=== PATIENT | female | born 1960 | race Caucasian/White ===

== ENCOUNTER 2023-04-12 08:28 | Outpatient (REF) | payer OTHER, SELFPAY ==
[2023-04-12 11:34] LABS: MANUAL DIFF FLAG NO
[2023-04-12 11:40] LABS: Basophils Percent Auto 0.3 % (0-2); Eosinophils Absolute Auto 0.1 X10*3/uL (0.0-0.4); Eosinophils Percent Auto 2.2 % (0-4); Hematocrit 36.3 % (37.0-47.0); Hemoglobin 11.4 g/dl (12.0-16.0); Imm Gran Abs Auto 0.02 X10*3/uL (0.00-0.03); Imm Gran Pct Auto 0.3 % (0.0-0.4); Lymphocytes Absolute Auto 1.2 X10*3/uL (1.2-4.9); Lymphocytes Percent Auto 18.2 % (20-40); Mean Corpuscular HGB Conc 31.4 g/dl (31.0-35.0); Mean Corpuscular Hemoglobin 26.6 pg (27.0-33.0); Mean Corpuscular Volume 84.6 fL (80.0-98.0); Mean Platelet Volume 11.8 fL (9.4-12.3); Monocytes Absolute Auto 0.3 X10*3/uL (0.1-1.2); Monocytes Percent Auto 5.1 % (2-11); Neutrophils Absolute Auto 4.8 x10*3/uL (2.0-8.3); Neutrophils Percent Auto 73.9 % (45-73); Platelet Count 284 X10*3/uL (160-400); Red Blood Count 4.29 X10*6/uL (4.20-5.50); Red Cell Distribution Width 14.5 % (11.0-16.0); White Blood Count 6.4 X10*3/uL (4.8-10.8)
[2023-04-12 12:10] LABS: Estimated Average Glucose 180 mg/dL; Hemoglobin A1c % 7.9 %
[2023-04-12 12:13] LABS: Alanine Aminotransferase 27 U/L (0-31); Albumin Level 4.4 g/dL (3.5-5.0); Alkaline Phosphatase 96 U/L (39-117); Anion Gap 12 (12-20); Aspartate Amino Transferase 20 U/L (5-31); Bilirubin Total 0.6 mg/dL (0.0-1.0); Blood Urea Nitrogen 28 mg/dL (9-16); Calcium 9.7 mg/dL (8.4-10.2); Carbon Dioxide 26 mmol/L (22-29); Chloride 103 mmol/L (96-108); Cholesterol 144 mg/dL; Estimated Glomerular Filt Rate 45; Glucose Fasting 170 mg/dL (60-99); HDL Cholesterol 33 mg/dL; LDL Cholesterol Calculated 78 mg/dl; Sodium 136 mmol/L (135-145); Total Protein 7.5 g/dL (6.5-8.0); Triglycerides 167 mg/dL
[2023-04-12 12:15] LABS: Microalbum/Creatinine Ratio Ur 5.2 ug/mg cr
[2023-04-12 12:32] LABS: TSH reflex Free T4 3.59 uIU/mL (0.32-4.0)
== END 2023-04-12 08:29 | disposition home or self-care (01) ==
LOC: HO.HMGCLDS 08:28
PROVIDERS: PCP Internal Medicine; Visit Provider Internal Medicine
DX: E11.9 Type 2 diabetes mellitus without complications (principal); E78.5 Hyperlipidemia, unspecified; I10 Essential (primary) hypertension; G47.30 Sleep apnea, unspecified
CPT/HCPCS: 36415; 80053; 80061; 82043; 83036; 84443; 85025

== ENCOUNTER 2023-07-02 09:38 | Outpatient (AMB) | payer OTHER, SELFPAY ==
--- NOTE | 2023-07-02 09:44 | MHC.AMNUTRGE ---
Intake VS Expanded 07/02/23 09:45 07/11/23 20:39 Height 5 ft 2 in 5 ft 2 in Weight 251 lb 8.759 oz 252 lb BMI 46.0 46.1 Intake Visit Reasons: DM2 Allergies albuteral Adverse Reaction (Uncoded 04/12/23 07:49) low oxygen gluten Adverse Reaction (Uncoded 04/12/23 07:49) upset stomach latex Adverse Reaction (Uncoded 04/12/23 07:49) rash HPI Nutrition Presentation Details Pt presents for MNT for T2DM . Pt was referred by PCP , Dr. Guzman Pt reports having celiac disease , T2DM for over 5 years Pt reports she monitors BG inthe fasting state and BG range from 150-160s Typical meal : D: egg, crackers water L: leftover: Rice/li/ meat : water or cheese or pepperoni or sausage D: 8 pm meatballs, gluten free buns and marinara sauce, water food frequency fruits/d: 0-1/d vegetables: 3 times/wk milk: 0-1/d snacks: chips,fruits, cookies starches > 2o servings/d protein foods: poultry/beef/processed meats fried foods :3 x/wk physical activity: daily life activities ETOH: denies smokingDenies HMJ-Ykdmnuo-Vu.Jeor Equation Height 5 ft 2 in Weight 252 lb Resting Metabolic Rate 1665.04 Calculated Activity Level Sedentary Calories Needed to Maintain Weight 1997.05 Diagnosis Nutrition problem #1 excessive energy intake As related to (etiology) #1 diagnosis As evidenced by (sign/symptom) #1 food recall and elevated HgbA1c (7.9% on 04/2023) Monitoring/Goals Nutrition problem monitoring HgbA1c, total CHO intake and weight Nutrition goal/outcome HgbA1c <7% in 3 months, list 3 CHO foods and wt loss 5lbs in 2 months Outcome progress verbalized understanding Learning/Education Readiness to learn good Stages of change contemplation Educational materials provided Yes (meal planning) Most Recent Diabetes Results: Microalb/Creat Ratio 5.2 ug/mg cr 04/12/23 Cholesterol 144 mg/dL 04/12/23 HDL Cholesterol 33 mg/dL 04/12/23 Triglycerides 167 mg/dL 04/12/23 Creatinine 1.21 mg/dL (0.5-1.4) 04/12/23 Blood Urea Nitrogen 28 mg/dL (9-16) H 04/12/23 Sodium 136 mmol/L (135-145) 04/12/23 Potassium 5.0 mmol/L (3.3-5.1) 04/12/23 Chloride 103 mmol/L (96-108) 04/12/23 Carbon Dioxide 26 mmol/L (22-29) 04/12/23 Calcium 9.7 mg/dL (8.4-10.2) 04/12/23 AST 20 U/L (5-31) 04/12/23 ALT 27 U/L (0-31) 04/12/23 Total Protein 7.5 g/dL (6.5-8.0) 04/12/23 Albumin 4.4 g/dL (3.5-5.0) 04/12/23 PFSH Family History Father CAD (coronary artery disease), Onset Age: 70 Mother COPD (chronic obstructive pulmonary disease) Social History Household Members Other:: , 3 children, on disability Housing: House Patient Tobacco Use Status: Never used Tobacco e-Cigarette/Vaping Use: Never Used service: No Current occupational status: unemployed Cognitive needs: No Hearing needs: No Vision needs: Yes Assessment & Plan Assessment & Plan (1) DM type 2 (diabetes mellitus, type 2): Code(s): E11.9 - Type 2 diabetes mellitus without complications Qualifiers: Diabetes mellitus [employer] insulin use: without [employer] use Plan: wt: 114 (06/2023) Est kcal needs as per MSJ: 2000 (40% carb, 30% protein/fat) Est fluid needs as per 25-30 ml/d: 2900 Est prot per day as per 1 g/kg bw: 114 Recommend fiber intake : 8-10 g per day and gradually increase to 25-28 g per day for women and 35-38 g for men or as tolerated Recommend sodium intake per day : less than 2000 mg Educated patient on: ( R = reviewed V = verbalizes understanding N/R = needs review N/A = not applicable Food sources of carbohydrate, adequate serving sizes and its role in various health conditions, Carbs per serving also on gluten free foods: R Differences between complex carbohydrates a simple carbohydrates, role of fiber in diet: R Differences between types of fats and role in diet (mono on saturated fat fatty acids, saturated fatty acids, trans fats): R Food sources of sodium in salt and healthy modifications for heart health in kidney health: NR Vitamins and minerals: R Healthy plate method concept: R Physical activity: Benefits a precaution: R Hypoglycemia protocol (rule of 15): NR Dietary prevention of Hyperglycemia: R Patient Instructions: Work on having 3 meals a day following healthy plate method, reducing carbohydrate at meals to 45-60 g Reduce on snacking behavior see 2000 walter meal plan Coding Level of Care Code Nutr Indiv Intake (77959) Diagnoses DM type 2 (diabetes mellitus, type 2) E11.9 Diabetes mellitus [employer] insulin use: without [employer] use Time Spent (min) 40
[2023-07-02 09:45] VITALS: BMI 46.0
[2023-07-11 20:39] VITALS: BMI 46.1
== END 2023-07-02 10:44 | disposition home or self-care (01) ==
PROVIDERS: PCP Internal Medicine; Visit Provider Dietitian, Registered
DX: E11.9 Type 2 diabetes mellitus without complications (principal)

== ENCOUNTER → 2023-07-02 09:38 | Outpatient (BNVA) | payer OTHER, SELFPAY | PROVIDERS: PCP Internal Medicine; Visit Provider Dietitian, Registered | DX: E11.9 Type 2 diabetes mellitus without complications (principal); Z71.3 Dietary counseling and surveillance | CPT/HCPCS: 97802 ==

== ENCOUNTER 2023-07-03 12:49 | Outpatient (AMB) | payer OTHER, SELFPAY ==
--- NOTE | 2023-07-03 13:02 | A.OFFVIS_ITS ---
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 Allergies albuteral Adverse Reaction (Uncoded 04/12/23 07:49) low oxygen gluten Adverse Reaction (Uncoded 04/12/23 07:49) upset stomach latex Adverse Reaction (Uncoded 04/12/23 07:49) rash HPI HPI Comments History of Present Illness Details 63 y/o female patient with hx of sleep apnea presents for new in-person visit to manage sleep apnea. Pt reports snoring, and difficulty sleeping. She was diagnosed with JONAH and tried CPAP many years ago. She tired CPAP only short term period, she did not tolerate the pressure and felt chocking. Pt reports difficulty falling asleep, lack of sleep and daytime tiredness and sleepy. She can fall asleep in her couch early in the evening, and having difficulty falling asleep at night. Sleep questionnaire: Have you ever been diagnosed with a sleep disorder? Yes, sleep apnea. Have you ever had a sleep study in the past? Yes. Have you ever been treated for a sleep disorder? Yes, CPAP but very short period time. Do you take medications for a sleep disorder? No. Do you snore? Yes. Do you wake up gasping at night? No. Do you have episodes of apneas? No. If yes, are they witnessed? No. Do you have episodes of nocturnal chest pain or dyspnea? No. Do you have difficulty initiating sleep? Yes. Do you have difficulty maintaining sleep? No. Do you wake up tired? Yes, sometimes. Do you have headaches upon awakening? Yes, sometimes. Do you wake up with dry mouth or throat? No. Do you have GERD? No. Do you have nocturia? Yes. Do you have nocturnal leg cramps? Yes. Do you have symptoms of restless legs? Yes. Do you act out your dreams? No. Sleep hygiene questionnaire: What is your usual sleep routine? Usual bedtime is at 2 am; Usual wake up time is at 7:30 -8am. Do you take naps? Yes, very short nap. Is your sleep environment cool, dark, and quiet? Yes. Do you exercise? No. Do you take caffeine or other stimulants? No. Do you use electronics in bed? Yes. What is your work schedule? N/A. Hypersomnolence questionnaire: Do you have daytime tiredness or fatigue? Yes. Do you easily fall asleep when inactive? Yes. Have you ever had episodes of sudden weakness? No. Have you ever had episodes of sudden weakness associated with strong emotions? No. PFSH Family History Father CAD (coronary artery disease), Onset Age: 70 Mother COPD (chronic obstructive pulmonary disease) Social History Household Members Other:: , 3 children, on disability Housing: House Patient Tobacco Use Status: Never used Tobacco e-Cigarette/Vaping Use: Never Used service: No Current occupational status: unemployed Cognitive needs: No Hearing needs: No Vision needs: Yes Review of Systems Const All systems reviewed & are unremarkable except as noted in HPI and below ENT Reports Normal hearing present Neuro Reports Normal hearing present Physical Exam Vital Signs: Last Vital Signs Pulse 66 07/03/23 13:04 BP 132/80 07/03/23 13:04 Pulse Ox 98 07/03/23 13:04 Oxygen Delivery Method Room Air 07/03/23 13:04 BMI result Body Mass Index 45.8 Const General: cooperative Nutritional Appearance: obese Orientation/consciousness: patient oriented x3 Neck Neck: Yes full ROM and Yes supple Resp Effort & Inspection: normal respiratory effort and able to speak in complete sentences Neuro General: patient oriented x3 and moves all extremities Cranial nerves: Yes Bilaterally intact EOM present, Yes Normal facial strength present, Yes Midline tongue present, Yes Symmetric palate elevation present, Yes Normal hearing present, Yes Ability to bilaterally rotate head present and Yes Ability to bilaterally elevate shoulders present Cognition (Neuro): normal cognition Motor exam (neuro): 5/5 motor strength present throughout, Pronator motor function not present and no tremor noted Psych Appearance: grossly normal Mental Status: mental status grossly normal Speech and movement: Normal speech and movement present Affect: normal affect Attitude: cooperative Assessment & Plan Assessment & Plan (1) Daytime sleepiness: Code(s): R40.0 - Somnolence (2) Sleep apnea: Comment: Could not tolerate CPAP over 5 years Code(s): G47.30 - Sleep apnea, unspecified Plan Pt is advised to undergo in lab sleep study to assess for sleep apnea. Will f/u with pt after study to discuss results and appropriate treatment options. Sleep hygiene education provided. Having routine sleep schedule and limit electr onic use before bedtime. Advised patient to try magnesium and melatonin qHS to promote sleep and prevent morning headache. Pt to call with any worsening concerns or questions. Orders: Orders RT PSG in-lab sleep study Today E11.9 - Type 2 diabetes mellitus without complications, E66.01 - Morbid (severe) obesity due to excess calories, G47.30 - Sleep apnea, unspecified, I10 - Essential (primary) hypertension, R40.0 - Somnolence Medications: New magnesium glycinate (2 x 100 mg magnesium) 200 mg orally at bedtime daily; 30 days 60 caps 3RF melatonin 3 mg PO BEDTIME 30 days PRN 30 caps 3RF sleep Coding Level of Care Code New Pt Level 4 (98605) Diagnoses Daytime sleepiness R40.0 Sleep apnea G47.30
[2023-07-03 13:04] VITALS: BP 132/80; PULSE 66; O2SAT 98; BMI 45.8
== END 2023-07-03 13:56 | disposition home or self-care (01) ==
PROVIDERS: PCP Internal Medicine; Visit Provider Nurse Practitioner Family
DX: R40.0 Somnolence (principal); G47.30 Sleep apnea, unspecified
CPT/HCPCS: 99204

== ENCOUNTER → 2023-07-03 12:49 | Outpatient (BNVA) | payer OTHER, MEDICAID, SELFPAY | PROVIDERS: PCP Internal Medicine; Visit Provider Nurse Practitioner Family | DX: R40.0 Somnolence (principal); G47.30 Sleep apnea, unspecified | CPT/HCPCS: 99202 ==

== ENCOUNTER 2023-07-12 09:23 | Outpatient (AMB) | payer OTHER, SELFPAY ==
[2023-07-12 09:24] VITALS: BP 118/66; PULSE 66; O2SAT 96; BMI 45.0
--- NOTE | 2023-07-12 09:24 | A.OFFPC_ITS ---
Vital Signs 07/12/23 09:24 Height 5 ft 2 in Weight 246 lb BMI 45.0 BP 118/66 Blood Pressure Location Lt brachial Position Sitting Pulse 66 Pulse Source Pulse Oximeter Pulse Oximetry (%) 96 Oxygen Delivery Method Room Air Intake Visit Reasons: 3 month follow up DM Intake Note: Pt is here today for 3 months follow up visit on DM. Allergies albuteral Adverse Reaction (Uncoded 07/12/23 09:26) low oxygen gluten Adverse Reaction (Uncoded 07/12/23 09:26) upset stomach latex Adverse Reaction (Uncoded 07/12/23 09:26) rash Medication List - Last Reconciled 07/12/23 by Tatyana Guzman MD atorvastatin (Lipitor) 20 mg PO DAILY blood sugar diagnostic ([employer] Verio test strips) As directed blood sugar diagnostic As directed exemestane 25 mg PO DAILY gabapentin 400 mg PO TID glipizide 5 mg PO BID lancets (PixelFishTouch Delica Plus Lancet) As directed levothyroxine 88 mcg PO DAILY losartan 50 mg PO DAILY magnesium glycinate 200 mg orally at bedtime daily; 30 days melatonin 3 mg PO BEDTIME PRN 30 days meloxicam 15 mg PO DAILY metformin ER 500 mg PO BID Tobacco use date assessed: 07/12/23 Dental Screening Dental Screen Date: 07/12/23 Did you have a dental visit in the last 12 months?: Yes Did you have a dental problem in the last 6 months where you did not have access to dental care?: No Was dental information given to patient?: Patient has dentist HPI 3 month follow up DM HPI Details Pt presents for follow-up of type 2 diabetes hypertension hyperlipidemia. Patient reports fasting blood glucose between 70-102, and 2 hours after meal under 130. Patient has been skipping meals occasionally and reports hypoglycemic episodes. [facility] Family History (Updated 07/12/23 @ 09:30 by TENZIN Frankel) Father CAD (coronary artery disease), Onset Age: 70 Substance use disorder Mother COPD (chronic obstructive pulmonary disease) Social History Household Members Other:: , 3 children, on disability Housing: House Patient Tobacco Use Status: Never used Tobacco e-Cigarette/Vaping Use: Never Used service: No Current occupational status: unemployed Cognitive needs: No Hearing needs: No Vision needs: Yes Questionnaire Thrive Questionnaire Date Thrive assessed: 04/12/23 CATHY-7 AMB Questionnaire CATHY-7 Date CATHY - 7 assessed: 04/12/23 Source: Developed by Drs. Kory Matson, Christel Gill, Jose Elizabeth and colleagues, with an educational layne from [employer]. Review of Systems Const All systems reviewed & are unremarkable except as noted in HPI and below Reports no additional complaints Eyes Reports no additional complaints ENT Reports no additional complaints Card Reports no additional complaints Resp Reports no additional complaints GI Reports no additional complaints Reports no additional complaints Physical exam (Primary Care) Vital Signs: Last Vital Signs Pulse 66 07/12/23 09:24 BP 118/66 07/12/23 09:24 Pulse Ox 96 07/12/23 09:24 Oxygen Delivery Method Room Air 07/12/23 09:24 BMI result Body Mass Index 45.0 Tobacco/Smoking Status: Tobacco use Status Tobacco use date assessed 07/12/23 07/12/23 09:30 Patient Tobacco Use Status Never used Tobacco 07/12/23 09:30 e-Cigarette/Vaping Use Never Used 07/12/23 09:30 Thrive Assessment: Date of Thrive Assessment Date Thrive assessed 04/12/23 07/12/23 09:30 Const General: no acute distress HENMT Head: Yes normal to inspection Ears: hearing grossly normal bilaterally Neck Neck: Yes no lymphadenopathy and Yes supple Resp Effort & Inspection: normal respiratory effort Auscultation: clear to auscultation bilaterally Cardio Rhythm: regular rhythm Heart sounds: S1 normal heart sound present and S2 normal heart sound present GI Palpation (GI): Soft to palpation Percussion: Yes normal to percussion Auscultation: normal bowel sounds Results AMB Hemoglobin A1c AMB Hemoglobin A1c 6.2 % Last Edit by TENZIN Frankel on 07/12/23 10:1 0 Assessment and Plan Assessment & Plan (1) CKD stage 3 due to type 2 diabetes mellitus: Code(s): E11.22 - Type 2 diabetes mellitus with diabetic chronic kidney disease; N18.30 - Chronic kidney disease, stage 3 unspecified Plan: Obtain renal ultrasound, patient was advised to avoid NSAIDs (2) Hx of colonoscopy: Comment: at 52 , refused repeated 04/26, cologuard negative 05/26 Code(s): Z98.890 - Other specified postprocedural states (3) Obesity, Class III, BMI 40-49.9 (morbid obesity): Code(s): E66.01 - Morbid (severe) obesity due to excess calories Plan: Increase physical activity and weight loss discussed with the patient (4) Hyperlipidemia: Code(s): E78.5 - Hyperlipidemia, unspecified Plan: Continue statin (5) HTN (hypertension): Code(s): I10 - Essential (primary) hypertension Plan: Continue losartan (6) DM type 2 (diabetes mellitus, type 2): Code(s): E11.9 - Type 2 diabetes mellitus without complications Qualifiers: Diabetes mellitus [facility] insulin use: without [facility] use Plan: A1c is down to 6.2 and patient has been having hypoglycemic episodes. She will stop glipizide and Farxiga 5 mg daily will be started. Patient follow-up in 3 months with a fasting labs before. She will start monitoring her blood glucose with Tim sensor. Orders: Orders AMB Hemoglobin A1c Today Z13.9 - Encounter for screening, unspecified Comprehensive [place]. Panel Fast 3 Months E11.22 - Type 2 diabetes mellitus with diabetic chronic kidney disease, E11.9 - Type 2 diabetes mellitus without complications, E66.01 - Morbid (severe) obesity due to excess calories, E78.5 - Hyperlipidemia, unspecified, I10 - Essential (primary) hypertension, N18.30 - Chronic kidney disease, stage 3 unspecified, Z98.890 - Other specified postprocedural states IRON PROFILE 3 Months E11.22 - Type 2 diabetes mellitus with diabetic chronic kidney disease, E11.9 - Type 2 diabetes mellitus without complications, E66.01 - Morbid (severe) obesity due to excess calories, E78.5 - Hyperlipidemia, unspecified, I10 - Essential (primary) hypertension, N18.30 - Chronic kidney disease, stage 3 unspecified, Z98.890 - Other specified postprocedural states Hemoglobin A1c 3 Months E11.22 - Type 2 diabetes mellitus with diabetic chronic kidney disease, E11.9 - Type 2 diabetes mellitus without complications, E66.01 - Morbid (severe) obesity due to excess calories, E78.5 - Hyperlipidemia, unspec ified, I10 - Essential (primary) hypertension, N18.30 - Chronic kidney disease, stage 3 unspecified, Z98.890 - Other specified postprocedural states US renal BI Today E11.22 - Type 2 diabetes mellitus with diabetic chronic kidney disease, N18.30 - Chronic kidney disease, stage 3 unspecified Complete Blood Count Auto Diff 3 Months E11.22 - Type 2 diabetes mellitus with diabetic chronic kidney disease, E11.9 - Type 2 diabetes mellitus without complications, E66.01 - Morbid (severe) obesity due to excess calories, E78.5 - Hyperlipidemia, unspecified, I10 - Essential (primary) hypertension, N18.30 - Chronic kidney disease, stage 3 unspecified, Z98.890 - Other specified postprocedural states Lipid Panel 3 Months E11.22 - Type 2 diabetes mellitus with diabetic chronic kidney disease, E11.9 - Type 2 diabetes mellitus without complications, E66.01 - Morbid (severe) obesity due to excess calories, E78.5 - Hyperlipidemia, unspecified, I10 - Essential (primary) hypertension, N18.30 - Chronic kidney disease, stage 3 unspecified, Z98.890 - Other specified postprocedural states Medications: New blood-glucose sensor (FreeStyle Tim 3 Sensor device) As directed 2 ea 2RF dapagliflozin propanediol (Farxiga) 5 mg PO DAILY 90 tabs 0RF Coding Level of Care Code Est Pt Level 4 (43987) Diagnoses CKD stage 3 due to type 2 diabetes mellitus E11.22; N18.30 Hx of colonoscopy Z98.890 Obesity, Class III, BMI 40-49.9 (morbid obesity) E66.01 Hyperlipidemia E78.5 HTN (hypertension) I10 DM type 2 (diabetes mellitus, type 2) E11.9 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
== END 2023-07-12 10:13 | disposition home or self-care (01) ==
PROVIDERS: PCP Internal Medicine; Visit Provider Internal Medicine
DX: E11.22 Type 2 diabetes mellitus with diabetic chronic kidney disease (principal); N18.30 Chronic kidney disease, stage 3 unspecified; Z98.890 Other specified postprocedural states; E66.01 Morbid (severe) obesity due to excess calories; I10 Essential (primary) hypertension; Z68.42 Body mass index [BMI] 45.0-49.9, adult; E78.5 Hyperlipidemia, unspecified
CPT/HCPCS: 83036; 99214

== ENCOUNTER 2023-07-18 11:27 | Outpatient (REF) | payer OTHER, MEDICAID, SELFPAY ==
--- NOTE | ~2023-07-18 | US_ITS ---
EXAMINATION: US RETROPERITONEAL LIMITED (RENAL ONLY) CLINICAL INFORMATION: Type 2 diabetes mellitus with diabetic chronic kidney disease. COMPARISON: None available. TECHNIQUE: Real-time imaging of the kidneys. FINDINGS: RIGHT KIDNEY: 10.7 x 4.5 x 6.7 cm (SAG x AP x TRV). The kidney is normal in size, contour, and echogenicity. Renal cortical thickness is normal. No calculi or focal parenchymal lesions. No hydronephrosis. LEFT KIDNEY: 11.0 x 5.6 x 5.8 cm (SAG x AP x TRV). The kidney is normal in size, contour, and echogenicity. Renal cortical thickness is normal. No calculi or focal parenchymal lesions. No hydronephrosis. US/US renal BI IMPRESSION: Unremarkable examination.
== END 2023-07-18 11:28 | disposition home or self-care (01) ==
LOC: HO.HMGCX 11:27
PROVIDERS: PCP Internal Medicine; Visit Provider Internal Medicine
DX: E11.22 Type 2 diabetes mellitus with diabetic chronic kidney disease (principal); N18.30 Chronic kidney disease, stage 3 unspecified
CPT/HCPCS: 76775

== ENCOUNTER 2023-08-20 09:47 | Outpatient (AMB) | payer OTHER, SELFPAY ==
--- NOTE | 2023-08-20 10:04 | A.OFFVIS_ITS ---
Intake VS Expanded 08/20/23 10:05 Height 5 ft 2 in Weight 247 lb 5.738 oz BMI 45.2 Intake Visit Reasons: DM2/ unable to lvm Allergies albuteral Adverse Reaction (Uncoded 07/12/23 09:26) low oxygen gluten Adverse Reaction (Uncoded 07/12/23 09:26) upset stomach latex Adverse Reaction (Uncoded 07/12/23 09:26) rash HPI Nutrition Presentation Details Pt presents for MNT for T2DM. The Pt was referred by Dr[facility] Claudette Guzman [facility] Equation Height 5 ft 2 in Weight 247 lb Resting Metabolic Rate 1642.38 Calculated Activity Level Sedentary Calories Needed to Maintain Weight 1970.86 Diagnosis Nutrition problem #1 food nutri know defi As related to (etiology) #1 diagnosis As evidenced by (sign/symptom) #1 knowledge deficit of diet Most Recent Diabetes Results: Microalb/Creat Ratio 5.2 ug/mg cr 04/12/23 Cholesterol 144 mg/dL 04/12/23 HDL Cholesterol 33 mg/dL 04/12/23 Triglycerides 167 mg/dL 04/12/23 Creatinine 1.21 mg/dL (0.5-1.4) 04/12/23 Blood Urea Nitrogen 28 mg/dL (9-16) H 04/12/23 Sodium 136 mmol/L (135-145) 04/12/23 Potassium 5.0 mmol/L (3.3-5.1) 04/12/23 Chloride 103 mmol/L (96-108) 04/12/23 Carbon Dioxide 26 mmol/L (22-29) 04/12/23 Calcium 9.7 mg/dL (8.4-10.2) 04/12/23 AST 20 U/L (5-31) 04/12/23 ALT 27 U/L (0-31) 04/12/23 Total Protein 7.5 g/dL (6.5-8.0) 04/12/23 Albumin 4.4 g/dL (3.5-5.0) 04/12/23 [facility] Family History (Updated 07/12/23 @ 09:30 by Amrita Shah Mi) Father CAD (coronary artery disease), Onset Age: 70 Substance use disorder Mother COPD (chronic obstructive pulmonary disease) Social History (Reviewed 07/03/23 @ 13:09 by Fatimah Wong Household Members Other:: , 3 children, on disability Housing: House Patient Tobacco Use Status: Never used Tobacco e-Cigarette/Vaping Use: Never Used service: No Current occupational status: unemployed Cognitive needs: No Hearing needs: No Vision needs: Yes Assessment & Plan Assessment & Plan (1) DM type 2 (diabetes mellitus, type 2): Code(s): E11.9 - Type 2 diabetes mellitus without complications Qualifiers: 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 Plan: wt: 114 (06/2023) Est kcal needs as per MSJ: 2000 (40% carb, 30% protein/fat) Est fluid needs as per 25-30 ml/d: 2900 Est prot per day as per 1 g/kg bw: 114 Recommend fiber intake : 8-10 g per day and gradually increase to 25-28 g per day for women and 35-38 g for men or as tolerated Recommend sodium intake per day : less than 2000 mg Educated patient on: ( R = reviewed V = verbalizes understanding N/R = needs review N/A = not applicable * Food sources of carbohydrate, adequate serving sizes and its role in various health conditions, Carbs per serving also on gluten free foods: R * Differences between complex carbohydrates a simple carbohydrates, role of fiber in diet: R * Differences between types of fats and role in diet (mono on saturated fat fatty acids, saturated fatty acids, trans fats): R * Food sources of sodium in salt and healthy modifications for heart health in kidney health: NR * Vitamins and minerals: R * Healthy plate method concept: R * Physical activity: Benefits a precaution: R * Hypoglycemia protocol (rule of 15): NR * Dietary prevention of Hyperglycemia: R Patient Instructions: Keep hydrated , drink water with meals, snacks and in between as needed in place of sugar containing beverages Read food labels, choose foods with protein example have [place] protein bar v granola bar as snack see meal plan following healthy plate method choosing naturally gluten free foods Coding Level of Care Code Nutr Indiv Intake (28557) Diagnoses DM type 2 (diabetes mellitus, type 2) E11.9 Diabetes mellitus care home insulin use: without care home use Time Spent (min) 30
[2023-08-20 10:05] VITALS: BMI 45.2
[2023-08-26 14:04] VITALS: BMI 45.2
== END 2023-08-20 11:19 | disposition home or self-care (01) ==
PROVIDERS: PCP Internal Medicine; Visit Provider Dietitian, Registered
DX: E11.9 Type 2 diabetes mellitus without complications (principal)

== ENCOUNTER → 2023-08-20 09:47 | Outpatient (BNVA) | payer OTHER, SELFPAY | PROVIDERS: PCP Internal Medicine; Visit Provider Dietitian, Registered | DX: E11.9 Type 2 diabetes mellitus without complications (principal) | CPT/HCPCS: 97802 ==

== ENCOUNTER 2023-10-04 13:42 | Outpatient (REF) | payer OTHER, SELFPAY ==
[2023-10-04 16:08] LABS: MANUAL DIFF FLAG NO
[2023-10-04 16:24] LABS: Alanine Aminotransferase 31 U/L (0-31); Albumin Level 4.5 g/dL (3.5-5.0); Alkaline Phosphatase 86 U/L (39-117); Anion Gap 13 (12-20); Aspartate Amino Transferase 22 U/L (5-31); Bilirubin Total 0.6 mg/dL (0.0-1.0); Blood Urea Nitrogen 20 mg/dL (9-16); Calcium 9.5 mg/dL (8.4-10.2); Carbon Dioxide 26 mmol/L (22-29); Chloride 105 mmol/L (96-108); Cholesterol 114 mg/dL (<200); Estimated Glomerular Filt Rate 50; Glucose Fasting 110 mg/dL (60-99); HDL Cholesterol 31 mg/dL (>40); Iron 49 mcg/dL (30-160); LDL Cholesterol Calculated 68 mg/dL (<100); Percent Iron Saturation 16 % (15-50); Potassium 4.7 mmol/L (3.3-5.1); Sodium 139 mmol/L (135-145); Total Iron Binding Capacity 309 mcg/dL (228-428); Total Protein 7.6 g/dL (6.5-8.0); Triglycerides 79 mg/dL (<150); Unsaturated Iron Binding 260 ug/dL
[2023-10-04 16:32] LABS: Estimated Average Glucose 148 mg/dL; Hemoglobin A1c % 6.8 % (<6.0)
[2023-10-04 16:53] LABS: Basophils Percent Auto 0.3 % (0-2); Eosinophils Absolute Auto 0.2 X10*3/uL (0.0-0.4); Eosinophils Percent Auto 2.6 % (0-4); Hematocrit 37.2 % (37.0-47.0); Hemoglobin 11.9 g/dl (12.0-16.0); Imm Gran Abs Auto 0.02 X10*3/uL (0.00-0.03); Imm Gran Pct Auto 0.3 % (0.0-0.4); Lymphocytes Absolute Auto 1.2 X10*3/uL (1.2-4.9); Lymphocytes Percent Auto 17.7 % (20-40); Mean Corpuscular Volume 84.4 fL (80.0-98.0); Mean Platelet Volume 11.4 fL (9.4-12.3); Monocytes Absolute Auto 0.3 X10*3/uL (0.1-1.2); Monocytes Percent Auto 4.5 % (2-11); Neutrophils Absolute Auto 5.2 x10*3/uL (2.0-8.3); Neutrophils Percent Auto 74.6 % (45-73); Platelet Count 282 X10*3/uL (160-400); Red Blood Count 4.41 X10*6/uL (4.20-5.50); Red Cell Distribution Width 14.4 % (11.0-16.0)
== END 2023-10-04 13:43 | disposition home or self-care (01) ==
LOC: HO.HMGCLDS 13:42
PROVIDERS: PCP Internal Medicine; Visit Provider Internal Medicine
DX: I12.9 Hypertensive chronic kidney disease with stage 1 through stage 4 chronic kidney disease, or unspecified chronic kidney disease (principal); E11.22 Type 2 diabetes mellitus with diabetic chronic kidney disease; N18.30 Chronic kidney disease, stage 3 unspecified; E66.01 Morbid (severe) obesity due to excess calories; E78.5 Hyperlipidemia, unspecified; Z98.890 Other specified postprocedural states
CPT/HCPCS: 36415; 80053; 80061; 83036; 83540; 85025

== ENCOUNTER 2023-10-11 09:58 | Outpatient (AMB) | payer OTHER, SELFPAY ==
--- NOTE | 2023-10-11 10:09 | MHC.PC.OV ---
Vital Signs 10/11/23 10:10 Height 5 ft 2 in Weight 243 lb BMI 44.4 BP 120/64 Blood Pressure Location Lt brachial Position Sitting Pulse 69 Pulse Source Pulse Oximeter Pulse Oximetry (%) 97 Oxygen Delivery Method Room Air Intake Visit Reasons: 3 month follow up Intake Note: Pt is here today for 3 months follow up visit on DM/labs. Allergies albuteral Adverse Reaction (Uncoded 10/11/23 10:12) low oxygen gluten Adverse Reaction (Uncoded 10/11/23 10:12) upset stomach latex Adverse Reaction (Uncoded 10/11/23 10:12) rash Medication List - Last Reconciled 10/11/23 by Tatyana Guzman MD atorvastatin (Lipitor) 20 mg PO DAILY blood sugar diagnostic As directed blood sugar diagnostic (atVenuuch Verio test strips) 1 TID blood-glucose sensor (Imagineer SystemsStyle Tim 3 Sensor device) As directed exemestane 25 mg PO DAILY Farxiga (dapagliflozin propanediol) 5 mg PO DAILY NS gabapentin 400 mg PO TID lancets (atVenuuch Delica Plus Lancet) As directed levothyroxine 88 mcg PO DAILY losartan 50 mg PO DAILY magnesium glycinate 200 mg orally at bedtime daily; 30 days melatonin 3 mg PO BEDTIME PRN 30 days metformin ER 1,000 mg (2 x 500 mg) PO BID Tobacco use date assessed: 07/12/23 HPI 3 month follow up HPI Details Patient presents for the follow-up of type 2 diabetes hypertension and hyperlipidemia. Patient reports occasionally hired fasting glucose since stop glipizide up to 130 in the morning. Patient lost 10 lb in the last 3 months trying to be more physically active. [facility] Family History (Updated 07/12/23 @ 09:30 by Amrita Shah [facility]) Father CAD (coronary artery disease), Onset Age: 70 Substance use disorder Mother COPD (chronic obstructive pulmonary disease) Social History Household Members Other:: , 3 children, on disability Housing: House Patient Tobacco Use Status: Never used Tobacco e-Cigarette/Vaping Use: Never Used service: No Current occupational status: unemployed Cognitive needs: No Hearing needs: No Vision needs: Yes Questionnaire Thrive Questionnaire Date Thrive assessed: 04/12/23 CATHY-7 AMB Questionnaire CATHY-7 Date CATHY - 7 assessed: 04/12/23 Source: Developed by Drs. Kory Matson, Christel Gill, Jose Elizabeth and colleagues, with an educational layne from [email or web address]. Review of Systems Const All systems reviewed & are unremarkable except as noted in HPI and below Reports no additional complaints Eyes Reports no additional complaints ENT Reports no additional complaints Card Reports no additional complaints Resp Reports no additional complaints GI Reports no additional complaints Reports no additional complaints Physical exam (Primary Care) Vital Signs: Last Vital Signs Pulse 69 10/11/23 10:10 BP 120/64 10/11/23 10:10 Pulse Ox 97 10/11/23 10:10 Oxygen Delivery Method Room Air 10/11/23 10:10 BMI result Body Mass Index 44.4 Tobacco/Smoking Status: Tobacco use Status Tobacco use date assessed 07/12/23 10/11/23 10:15 Patient Tobacco Use Status Never used Tobacco 10/11/23 10:15 e-Cigarette/Vaping Use Never Used 10/11/23 10:15 Thrive Assessment: Date of Thrive Assessment Date Thrive assessed 04/12/23 10/11/23 10:15 Const General: no acute distress HENMT Head: Yes normal to inspection Ears: hearing grossly normal bilaterally Eyes General: appearance normal, both eyes and all related structures Neck Neck: Yes no lymphadenopathy and Yes supple Resp Effort & Inspection: normal respiratory effort Auscultation: clear to auscultation bilaterally Cardio Rhythm: regular rhythm Heart sounds: S1 normal heart sound present and S2 normal heart sound present GI Inspection: Yes normal to inspection Palpation (GI): Soft to palpation Percussion: Yes normal to percussion Auscultation: normal bowel sounds Assessment and Plan Assessment & Plan (1) Obesity, Class III, BMI 40-49.9 (morbid obesity): Code(s): E66.01 - Morbid (severe) obesity due to excess calories Plan: Weight loss discussed with the patient. (2) HTN (hypertension): Code(s): I10 - Essential (primary) hypertension Plan: Continue losartan (3) Hyperlipidemia: Code(s): E78.5 - Hyperlipidemia, unspecified Plan: Continue statin (4) DM type 2 (diabetes mellitus, type 2): Code(s): E11.9 - Type 2 diabetes mellitus without complications Qualifiers: Diabetes mellitus ad terminal makeup operator insulin use: without alf use Plan: A1c is 6.8, Farxiga will be increased to 10 mg a day and Ozempic 0.25 weekly will be started. ADA diet increase physical activity weight loss discussed with the patient. Follow-up in 3 months with a fasting labs before Medications: New semaglutide (Ozempic) for 4 weeks 0.25 mg (0.368 mL) subcut QWEEK 9 mL 2RF dapagliflozin propanediol (Farxiga) 10 mg PO DAILY 90 tabs 3RF metformin 1,000 mg PO BID 180 tabs 2RF Changed From blood sugar diagnostic (OneTouch Verio test strips) As directed To blood sugar diagnostic (OneTouch Verio test strips) 1 TID 100 ea 3RF From metformin ER 500 mg PO BID 180 tabs 3RF To metformin ER 1,000 mg (2 x 500 mg) PO BID 360 tabs 3RF Coding Level of Care Code Est Pt Level 4 (44162) Diagnoses Obesity, Class III, BMI 40-49.9 (morbid obesity) E66.01 HTN (hypertension) I10 Hyperlipidemia E78.5 DM type 2 (diabetes mellitus, type 2) E11.9 Diabetes mellitus ad terminal makeup operator insulin use: without ad terminal makeup operator use
[2023-10-11 10:10] VITALS: BP 120/64; PULSE 69; O2SAT 97; BMI 44.4
== END 2023-10-11 10:55 | disposition home or self-care (01) ==
PROVIDERS: PCP Internal Medicine; Visit Provider Internal Medicine
DX: E11.69 Type 2 diabetes mellitus with other specified complication (principal); E66.01 Morbid (severe) obesity due to excess calories; Z68.41 Body mass index [BMI] 40.0-44.9, adult; I10 Essential (primary) hypertension; E78.5 Hyperlipidemia, unspecified
CPT/HCPCS: 99214

== ENCOUNTER 2023-10-31 09:41 | Outpatient (AMB) | payer OTHER, SELFPAY ==
--- NOTE | 2023-10-31 09:55 | A.OFFVIS_ITS ---
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 In lab sleep study and home sleep study ordered, but denied by her insurance. Pt reports snoring, and difficulty sleeping. She was diagnosed with JONAH and tried CPAP many years ago, it was more than 10 years ago. She tired CPAP only short term period, she did not tolerate the pressure and felt chocking. Pt reports difficulty falling asleep, lack of sleep and daytime tiredness and sleepy. She can fall asleep in her couch early in the evening, and having difficulty falling asleep at night. Sleep questionnaire: Have you ever been diagnosed with a sleep disorder? Yes, sleep apnea. Have you ever had a sleep study in the past? Yes. Have you ever been treated for a sleep disorder? Yes, CPAP but very short period time. Do you take medications for a sleep disorder? No. Do you snore? Yes. Do you wake up gasping at night? No. Do you have episodes of apneas? No. If yes, are they witnessed? No. Do you have episodes of nocturnal chest pain or dyspnea? No. Do you have difficulty initiating sleep? Yes. Do you have difficulty maintaining sleep? No. Do you wake up tired? Yes, sometimes. Do you have headaches upon awakening? Yes, sometimes. Do you wake up with dry mouth or throat? No. Do you have GERD? No. Do you have nocturia? Yes. Do you have nocturnal leg cramps? Yes. Do you have symptoms of restless legs? Yes. Do you act out your dreams? No. Sleep hygiene questionnaire: What is your usual sleep routine? Usual bedtime is at 2 am; Usual wake up time is at 7:30 -8am. Do you take naps? Yes, very short nap. Is your sleep environment cool, dark, and quiet? Yes. Do you exercise? No. Do you take caffeine or other stimulants? No. Do you use electronics in bed? Yes. What is your work schedule? N/A. Hypersomnolence questionnaire: Do you have daytime tiredness or fatigue? Yes. Do you easily fall asleep when inactive? Yes. Have you ever had episodes of sudden weakness? No. Have you ever had episodes of sudden weakness associated with strong emotions? No. PFSH Family History Father CAD (coronary artery disease), Onset Age: 70 Substance use disorder Mother COPD (chronic obstructive pulmonary disease) Social History Household Members Other:: , 3 children, on disability Housing: House Patient Tobacco Use Status: Never used Tobacco e-Cigarette/Vaping Use: Never Used service: No Current occupational status: unemployed Cognitive needs: No Hearing needs: No Vision needs: Yes Review of Systems Const All systems reviewed & are unremarkable except as noted in HPI and below ENT Reports Normal hearing present Neuro Reports Normal hearing present Physical Exam Vital Signs: Last Vital Signs Pulse 87 10/31/23 09:57 BP 110/70 10/31/23 09:57 Pulse Ox 97 10/31/23 09:57 Oxygen Delivery Method Room Air 10/31/23 09:57 BMI result Body Mass Index 42.8 Const General: cooperative Nutritional Appearance: obese Orientation/consciousness: patient oriented x3 Neck Neck: Yes full ROM and Yes supple Resp Effort & Inspection: normal respiratory effort and able to speak in complete sentences Neuro General: patient oriented x3 and moves all extremities Cranial nerves: Yes Bilaterally intact EOM present, Yes Normal facial strength present, Yes Midline tongue present, Yes Symmetric palate elevation present, Yes Normal hearing present, Yes Ability to bilaterally rotate head present and Yes Ability to bilaterally elevate shoulders present Cognition (Neuro): normal cognition Motor exam (neuro): 5/5 motor strength present throughout, Pronator motor function not present and no tremor noted Psych Appearance: grossly normal Mental Status: mental status grossly normal Speech and movement: Normal speech and movement present Affect: normal affect Attitude: cooperative Assessment & Plan Assessment & Plan (1) Daytime sleepiness: Code(s): R40.0 - Somnolence (2) Sleep apnea: Comment: Could not tolerate CPAP over 5 years Code(s): G47.30 - Sleep apnea, unspecified Plan Pt is advised to undergo home sleep study to assess for sleep apnea. Will f/u with pt after study to discuss results and appropriate treatment options. Sleep hygiene education provided. Having routine sleep schedule and limit electronic use before bedtime. Advised patient to try magnesium and melatonin qHS to promote sleep and prevent morning headache. Pt to call with any worsening concerns or questions. Orders: Orders RT home sleep study Today E66.01 - Morbid (severe) obesity due to excess calories, G47.33 - Obstructive sleep apnea (adult) (pediatric), R40.0 - Somnolence Coding Level of Care Code Est Pt Level 3 (74368) Diagnoses Daytime sleepiness R40.0 Sleep apnea G47.30
[2023-10-31 09:57] VITALS: BP 110/70; PULSE 87; O2SAT 97; BMI 42.8
== END 2023-10-31 10:17 | disposition home or self-care (01) ==
PROVIDERS: PCP Internal Medicine; Visit Provider Nurse Practitioner Family
DX: R40.0 Somnolence (principal); G47.30 Sleep apnea, unspecified
CPT/HCPCS: 99213

== ENCOUNTER → 2023-10-31 09:41 | Outpatient (BNVA) | payer OTHER, MEDICAID, SELFPAY | PROVIDERS: PCP Internal Medicine; Visit Provider Nurse Practitioner Family | DX: R40.0 Somnolence (principal); G47.30 Sleep apnea, unspecified | CPT/HCPCS: 99212 ==

== ENCOUNTER 2023-11-25 10:02 | Outpatient (AMB) | payer OTHER, SELFPAY ==
[2023-11-25 10:07] VITALS: BMI 43.7
--- NOTE | 2023-11-25 10:07 | A.OFFVIS_ITS ---
Intake VS Expanded 11/25/23 10:07 Height 5 ft 2 in Weight 239 lb 3.225 oz BMI 43.7 Intake Visit Reasons: DM/CONFIRMED Allergies albuteral Adverse Reaction (Uncoded 10/11/23 10:12) low oxygen gluten Adverse Reaction (Uncoded 10/11/23 10:12) upset stomach latex Adverse Reaction (Uncoded 10/11/23 10:12) rash HPI Nutrition Presentation Details Pt presents for MNT for T2DM. The Pt was referred by Dr. Guzman. Pt reports following a gluten free diet for years due to sensitivity, upset stomach Pt report having 3 meal a day with no meal routine Reports lacking understanding related to diet and DM. meal may consist of oatmeal in AM with sugar/milk added L: 11m morcilla/rice/beans/soda Dinner: pizza GF fried foods: 3 x/wk fruits: 0-1/d ve-3 x/wk dairy: 3 c/d fish:not including starches > 20 /d physical activity: daily life ETOH/SMoking: denies FKQ-Nmcogex-Ww.Jeor Equation Height 5 ft 2 in Weight 239 lb Resting Metabolic Rate 1606.13 Calculated Activity Level Sedentary Calories Needed to Maintain Weight 1927.36 Diagnosis Nutrition problem #1 food nutri know defi As related to (etiology) #1 diagnosis As evidenced by (sign/symptom) #1 high BMI (43.8 (12/28), obesity) and knowledge deficit of diet Monitoring/Goals Nutrition problem monitoring level of knowledge/skill, glucose, fasting, total CHO intake and weight Nutrition goal/outcome list 3 CHO foods Outcome progress verbalized understanding Learning/Education Readiness to learn good Stages of change contemplation Educational materials provided Yes (meal planning ) Most Recent Diabetes Results: Cholesterol 114 mg/dL (<200) 10/04/23 HDL Cholesterol 31 mg/dL (>40) L 10/04/23 Triglycerides 79 mg/dL (<150) 10/04/23 Creatinine 1.11 mg/dL (0.5-1.4) 10/04/23 Blood Urea Nitrogen 20 mg/dL (9-16) H 10/04/23 Sodium 139 mmol/L (135-145) 10/04/23 Potassium 4.7 mmol/L (3.3-5.1) 10/04/23 Chloride 105 mmol/L (96-108) 10/04/23 Carbon Dioxide 26 mmol/L (22-29) 10/04/23 Calcium 9.5 mg/dL (8.4-10.2) 10/04/23 AST 22 U/L (5-31) 10/04/23 ALT 31 U/L (0-31) 10/04/23 Total Protein 7.6 g/dL (6.5-8.0) 10/04/23 Albumin 4.5 g/dL (3.5-5.0) 10/04/23 PFSH Family History Father CAD (coronary artery disease), Onset Age: 70 Substance use disorder Mother COPD (chronic obstructive pulmonary disease) Social History Household Members Other:: , 3 children, on disability Housing: House Patient Tobacco Use Status: Never used Tobacco e-Cigarette/Vaping Use: Never Used service: No Current occupational status: unemployed Cognitive needs: No Hearing needs: No Vision needs: Yes Assessment & Plan Assessment & Plan (1) DM type 2 (diabetes mellitus, type 2): Code(s): E11.9 - Type 2 diabetes mellitus without complications Qualifiers: Diabetes mellitus halfway insulin use: without terminal operations supervisor use Plan: wt: 114 (06/2023) Est kcal needs as per MSJ: 2000 (40% carb, 30% protein/fat) Est fluid needs as per 25-30 ml/d: 2900 Est prot per day as per 1 g/kg bw: 114 Recommend fiber intake : 8-10 g per day and gradually increase to 25-28 g per day for women and 35-38 g for men or as tolerated Recommend sodium intake per day : less than 2000 mg Educated patient on: ( R = reviewed V = verbalizes understanding N/R = needs review N/A = not applicable * Food sources of carbohydrate, adequate serving sizes and its role in various health conditions, Carbs per serving also on gluten free foods: R * Differences between complex carbohydrates a simple carbohydrates, role of fiber in diet: R * Differences between types of fats and role in diet (mono on saturated fat fatty acids, saturated fatty acids, trans fats): R * Food sources of sodium in salt and healthy modifications for heart health in kidney health: NR * Vitamins and minerals: R * Healthy plate method concept: R * Physical activity: Benefits a precaution: R * Hypoglycemia protocol (rule of 15): NR * Dietary prevention of Hyperglycemia: R Patient Instructions: Resume meal planning, reducing on carbs 45 or less at dinner Engage in movement , chair exercises , physical activity (walking) start with 10 minutes and increase to 30 min or as tolerated Coding Level of Care Code Nutr Indiv Subseq (23373) Diagnoses DM type 2 (diabetes mellitus, type 2) E11.9 Diabetes mellitus terminal operations supervisor insulin use: without halfway use Time Spent (min) 30
[2023-12-05 11:04] VITALS: BMI 43.7
== END 2023-11-25 10:44 | disposition home or self-care (01) ==
PROVIDERS: PCP Internal Medicine; Visit Provider Dietitian, Registered
DX: E11.9 Type 2 diabetes mellitus without complications (principal)

== ENCOUNTER → 2023-11-25 10:02 | Outpatient (BNVA) | payer OTHER, SELFPAY | PROVIDERS: PCP Internal Medicine; Visit Provider Dietitian, Registered | DX: E11.9 Type 2 diabetes mellitus without complications (principal) | CPT/HCPCS: 97803 ==

== ENCOUNTER → 2023-12-10 10:09 | Outpatient (REF) | payer MEDICARE, MEDICAID, SELFPAY | LOC: HO.SL 10:09 | PROVIDERS: PCP Internal Medicine; Visit Provider Nurse Practitioner Family | DX: G47.33 Obstructive sleep apnea (adult) (pediatric) (principal); E66.01 Morbid (severe) obesity due to excess calories; R40.0 Somnolence | CPT/HCPCS: 95806 ==

== ENCOUNTER → 2023-12-10 12:07 | Outpatient (BNV) | payer MEDICARE, SELFPAY | PROVIDERS: PCP Internal Medicine; Visit Provider Internal Medicine | DX: R06.83 Snoring (principal) | CPT/HCPCS: 95806 ==

== ENCOUNTER 2024-01-13 08:43 | Outpatient (REF) | payer MEDICARE, SELFPAY ==
[2024-01-13 12:18] LABS: Estimated Average Glucose 134 mg/dL; Hemoglobin A1C 148.4864 umol/L; Hemoglobin A1c % 6.3 % (<6.0)
[2024-01-13 13:14] LABS: Alanine Aminotransferase 26 U/L (0-31); Albumin Level 4.3 g/dL (3.5-5.0); Alkaline Phosphatase 86 U/L (39-117); Anion Gap 14 (12-20); Aspartate Amino Transferase 25 U/L (5-31); Bilirubin Total 0.4 mg/dL (0.0-1.0); Blood Urea Nitrogen 17 mg/dL (9-16); Calcium 9.4 mg/dL (8.4-10.2); Carbon Dioxide 25 mmol/L (22-29); Chloride 107 mmol/L (96-108); Cholesterol 110 mg/dL (<200); Estimated Glomerular Filt Rate 46; Glucose Fasting 115 mg/dL (60-99); HDL Cholesterol 31 mg/dL (>40); Iron 42 mcg/dL (30-160); LDL Cholesterol Calculated 57 mg/dL (<100); Percent Iron Saturation 14 % (15-50); Potassium 4.5 mmol/L (3.3-5.1); Sodium 141 mmol/L (135-145); Total Iron Binding Capacity 293 mcg/dL (228-428); Total Protein 7.6 g/dL (6.5-8.0); Triglycerides 112 mg/dL (<150); Unsaturated Iron Binding 251 ug/dL
== END 2024-01-13 08:44 | disposition home or self-care (01) ==
LOC: HO.HMGCLDS 08:43
PROVIDERS: PCP Internal Medicine; Visit Provider Internal Medicine
DX: E78.5 Hyperlipidemia, unspecified (principal); E11.9 Type 2 diabetes mellitus without complications; I10 Essential (primary) hypertension
CPT/HCPCS: 36415; 80053; 80061; 83036; 83540

== ENCOUNTER 2024-01-14 09:59 | Outpatient (AMB) | payer MEDICARE, MEDICAID, SELFPAY ==
[2024-01-14 10:38] VITALS: BP 120/64; PULSE 77; O2SAT 97; BMI 43.3
--- NOTE | 2024-01-14 10:38 | MHC.PC.OV ---
Vital Signs 01/14/24 10:38 Height 5 ft 2 in Weight 237 lb BMI 43.3 BP 120/64 Blood Pressure Location Lt brachial Position Sitting Pulse 77 Pulse Source Pulse Oximeter Pulse Oximetry (%) 97 Oxygen Delivery Method Room Air Intake Visit Reasons: 3 Month F/U Intake Note: Pt is here today for 3 months follow up visit on labs. Allergies albuteral Adverse Reaction (Uncoded 01/14/24 10:41) low oxygen gluten Adverse Reaction (Uncoded 01/14/24 10:41) upset stomach latex Adverse Reaction (Uncoded 01/14/24 10:41) rash Medication List - Last Reconciled 01/14/24 by Tatyana Guzman MD atorvastatin (Lipitor) 20 mg PO DAILY blood sugar diagnostic As directed blood sugar diagnostic ([employer] Verio test strips) 1 TID blood-glucose sensor ([employer]Style Tim 3 Sensor device) As directed dapagliflozin propanediol (Farxiga) 10 mg PO DAILY exemestane 25 mg PO DAILY gabapentin 400 mg PO TID lancets ([employer] Delica Plus Lancet) As directed levothyroxine 88 mcg PO DAILY losartan 50 mg PO DAILY magnesium glycinate 200 mg orally at bedtime daily; 30 days melatonin 3 mg PO BEDTIME PRN 30 days metformin 1,000 mg PO BID semaglutide (Ozempic) 0.25 mg (0.368 mL) subcut QWEEK Tobacco use date assessed: 01/14/24 Dental Screening Dental Screen Date: 01/14/24 Did you have a dental visit in the last 12 months?: Yes Did you have a dental problem in the last 6 months where you did not have access to dental care?: No Was dental information given to patient?: Patient has dentist HPI 3 Month F/U HPI Details Patient presents for the follow-up of hypertension hyperlipidemia type 2 diabetes history of breast CA. PFSH Family History Father CAD (coronary artery disease), Onset Age: 70 Substance use disorder Mother COPD (chronic obstructive pulmonary disease) Social History Household Members Other:: , 3 children, on disability Housing: House Patient Tobacco Use Status: Never used Tobacco e-Cigarette/Vaping Use: Never Used service: No Current occupational status: unemployed Cognitive needs: No Hearing needs: No Vision needs: Yes Questionnaire PHQ-9 Over the last 2 weeks, how often have you been bothered by any of the following problems? 1. Little interest or pleasure in doing things: not at all 2. Feeling down, depressed, or hopeless: not at all 3. Trouble falling or staying asleep, or sleeping too much: not at all 4. Feeling tired or having little energy: not at all 5. Poor appetite or overeating: not at all 6. Feeling bad about yourself - or that you are a failure or have let yourself or your family down: not at all 7. Trouble concentrating on things, such as reading the newspaper or watching television: not at all 8. Moving or speaking so slowly that other people could have noticed. Or the opposite - being so fidgety or restless that you have been moving around a lot more than usual: not at all 9. Thoughts that you would be better off or of hurting yourself in some way: not at all Total score: 0 Depression Screening Interpretation: Negative Depression Screening Done: Yes Source: Developed by Drs. Kory Matson, Christel Gill, Jose Elizabeth and colleagues, with an educational layne from [employer]. Thrive Questionnaire Date Thrive assessed: 01/14/24 I am a: Patient What is your living situation today?: I have a steady place to live Within the past 12 months, did the food you bought not last and you didn't have the money to get more?: Never true Within the past 12 months, did you worry whether your food would run out before you got money to buy more?: Never true Do you have trouble paying for medicines?: No Do you have trouble getting transportation to medical appointments?: No Do you have trouble paying your heating and electricity bill?: No Do you have trouble taking care of your child, family member or friend?: No Do you have trouble with day-to-day activities such as bathing, preparing meals, shopping, managing finances, etc.?: No Are you currently unemployed and looking for a job?: No Are you interested in more education?: No Please select the resources that you would like help with: None THRIVE Score: 0 AUDIT C Alcohol Use Questionnaire (AUDIT-C) 1. How often do you have a drink containing alcohol?: Monthly or less 2. How many drinks containing alcohol do you have on a typical day when you are drinking?: 1 or 2 3. How often do you have six or more drinks on one occasion?: Never Total Score: 1 CATHY-7 AMB Questionnaire CATHY-7 Date CATHY - 7 assessed: 01/14/24 Feeling nervous, anxious, or on edge: 0 = Not at all Not being able to stop or control worryin = Not at all Worrying too much about different things: 0 = Not at all Trouble relaxin = Several days Being so restless that it is hard to sit still: 1 = Several days Becoming easily annoyed or irritable: 1 = Several days Feeling afraid as if something awful might happen: 0 = Not at all Total CATHY-7 score (0-4 normal; 5-9 mild; 10-14 moderate; 15-21 severe): 3 Source: Developed by Drs. Kory Matson, Christel Gill, Jose Elizabeth and colleagues, with an educational layne from [employer]. Review of Systems Const All systems reviewed & are unremarkable except as noted in HPI and below Reports no additional complaints Eyes Reports no additional complaints ENT Reports no additional complaints Card Reports no additional complaints Resp Reports no additional complaints GI Reports no additional complaints Physical exam (Primary Care) Vital Signs: Last Vital Signs Pulse 77 01/14/24 10:38 BP 120/64 01/14/24 10:38 Pulse Ox 97 01/14/24 10:38 Oxygen Delivery Method Room Air 01/14/24 10:38 BMI result Body Mass Index 43.3 Tobacco/Smoking Status: Tobacco use Status Tobacco use date assessed 01/14/24 01/14/24 10:45 Patient Tobacco Use Status Never used Tobacco 01/14/24 10:45 e-Cigarette/Vaping Use Never Used 01/14/24 10:45 Depression Screening Interpretation: Negative Thrive Assessment: Date of Thrive Assessment Date Thrive assessed 04/12/23 01/14/24 10:45 Const General: no acute distress HENMT Head: Yes normal to inspection Ears: hearing grossly normal bilaterally Mouth: Normal oral and palatal mucosa present Resp Effort & Inspection: normal respiratory effort Auscultation: clear to auscultation bilaterally Cardio Rhythm: regular rhythm Heart sounds: S1 normal heart sound present and S2 normal heart sound present GI Inspection: Yes normal to inspection Percussion: Yes normal to percussion Auscultation: normal bowel sounds Assessment and Plan Assessment & Plan (1) CKD stage 3 due to type 2 diabetes mellitus: Code(s): E11.22 - Type 2 diabetes mellitus with diabetic chronic kidney disease; N18.30 - Chronic kidney disease, stage 3 unspecified Plan: Monitor renal function avoid nephrotoxins continue Farxiga (2) Obesity, Class III, BMI 40-49.9 (morbid obesity): Code(s): E66.01 - Morbid (severe) obesity due to excess calories Plan: Increase physical activity weight loss discussed with the patient (3) HTN (hypertension): Code(s): I10 - Essential (primary) hypertension Plan: Continue current medications (4) Hyperlipidemia: Code(s): E78.5 - Hyperlipidemia, unspecified Plan: Continue statin (5) DM type 2 (diabetes mellitus, type 2): Code(s): E11.9 - Type 2 diabetes mellitus without complications Qualifiers: Diabetes mellitus retirement insulin use: without buttermaker continuous churn use Plan: A1c is down to 6.3, ADA diet increase exercise weight loss discussed with the patient increase Ozempic to 0.5 mg continue Farxiga and metformin (6) Breast cancer, right breast: Comment: 08/25 lumpectomy, RTx, on chemo Dr. Avila Code(s): C50.911 - Malignant neoplasm of unspecified site of right female breast Plan: Follow-up with oncology Orders: Orders Hemoglobin A1c 3 Months C50.911 - Malignant neoplasm of unspecified site of right female breast, E11.22 - Type 2 diabetes mellitus with diabetic chronic kidney disease, E11.9 - Type 2 diabetes mellitus without complications, E66.01 - Morbid (severe) obesity due to excess calories, E78.5 - Hyperlipidemia, unspecified, I10 - Essential (primary) hypertension, N18.30 - Chronic kidney disease, stage 3 unspecified TSH reflex Free T4 3 Months C50.911 - Malignant neoplasm of unspecified site of right female breast, E11.22 - Type 2 diabetes mellitus with diabetic chronic kidney disease, E11.9 - Type 2 diabetes mellitus without complications, E66.01 - Morbid (severe) obesity due to excess calories, E78.5 - Hyperlipidemia, unspecified, I10 - Essential (primary) hypertension, N18.30 - Chronic kidney disease, stage 3 unspecified Comprehensive [place]. Panel Fast 3 Months C50.911 - Malignant neoplasm of unspecified site of right female breast, E11.22 - Type 2 diabetes mellitus with diabetic chronic kidney disease, E11.9 - Type 2 diabetes mellitus without complications, E66.01 - Morbid (severe) obesity due to excess calories, E78.5 - Hyperlipidemia, unspecified, I10 - Essential (primary) hypertension, N18.30 - Chronic kidney disease, stage 3 unspecified Lipid Panel 3 Months C50.911 - Malignant neoplasm of unspecified site of right female breast, E11.22 - Type 2 diabetes mellitus with diabetic chronic kidney disease, E11.9 - Type 2 diabetes mellitus without complications, E66.01 - Morbid (severe) obesity due to excess calories, E78.5 - Hyperlipidemia, unspecified, I10 - Essential (primary) hypertension, N18.30 - Chronic kidney disease, stage 3 unspecified Microalbumin, Random (w Creat) 3 Months C50.911 - Malignant neoplasm of unspecified site of right female breast, E11.22 - Type 2 diabetes mellitus with diabetic chronic kidney disease, E11.9 - Type 2 diabetes mellitus without complications, E66.01 - Morbid (severe) obesity due to excess calories, E78.5 - Hyperlipidemia, unspecified, I10 - Essential (primary) hypertension, N18.30 - Chronic kidney disease, stage 3 unspecified Vitamin D 25-OH Total 3 Months C50.911 - Malignant neoplasm of unspecified site of right female breast, E11.22 - Type 2 diabetes mellitus with diabetic chronic kidney disease, E11.9 - Type 2 diabetes mellitus without complications, E66.01 - Morbid (severe) obesity due to excess calories, E78.5 - Hyperlipidemia, unspecified, I10 - Essential (primary) hypertension, N18.30 - Chronic kidney disease, stage 3 unspecified Medications: New gabapentin 1 capsule in the am and noon and 2 capsules at night 400 mg PO TID 360 caps 3RF Changed From semaglutide (Ozempic) for 4 weeks 0.25 mg (0.368 mL) subcut QWEEK 9 mL 2RF To Ozempic (semaglutide) 0.5 mg (0.736 mL) subcut QWEEK 9 mL 2RF NS Refilled atorvastatin (Lipitor) 20 mg PO DAILY 90 tabs 3RF dapagliflozin propanediol (Farxiga) 10 mg PO DAILY 90 tabs 3RF losartan 50 mg PO DAILY 90 tabs 3RF levothyroxine 88 mcg PO DAILY 90 tabs 3RF metformin 1,000 mg PO BID 180 tabs 3RF Coding Level of Care Code Est Pt Level 4 (16790) Diagnoses CKD stage 3 due to type 2 diabetes mellitus E11.22; N18.30 Obesity, Class III, BMI 40-49.9 (morbid obesity) E66.01 HTN (hypertension) I10 Hyperlipidemia E78.5 DM type 2 (diabetes mellitus, type 2) E11.9 Diabetes mellitus retirement insulin use: without buttermaker continuous churn use Breast cancer, right breast C50.911
== END 2024-01-14 11:11 | disposition home or self-care (01) ==
PROVIDERS: PCP Internal Medicine; Visit Provider Internal Medicine
DX: I12.9 Hypertensive chronic kidney disease with stage 1 through stage 4 chronic kidney disease, or unspecified chronic kidney disease (principal); E11.22 Type 2 diabetes mellitus with diabetic chronic kidney disease; N18.30 Chronic kidney disease, stage 3 unspecified; E66.01 Morbid (severe) obesity due to excess calories; E11.69 Type 2 diabetes mellitus with other specified complication; C50.911 Malignant neoplasm of unspecified site of right female breast; E78.5 Hyperlipidemia, unspecified
CPT/HCPCS: 99214

== ENCOUNTER 2024-04-01 10:09 | Outpatient (REF) | payer MEDICARE, MEDICAID, SELFPAY ==
[2024-04-01 13:58] LABS: Estimated Average Glucose 137 mg/dL; Hemoglobin A1c % 6.4 % (<6.0)
[2024-04-01 14:08] LABS: Alanine Aminotransferase 25 U/L (0-31); Albumin Level 4.6 g/dL (3.5-5.0); Alkaline Phosphatase 88 U/L (39-117); Anion Gap 14 (12-20); Aspartate Amino Transferase 18 U/L (5-31); Bilirubin Total 0.5 mg/dL (0.0-1.0); Blood Urea Nitrogen 20 mg/dL (9-16); Calcium 9.8 mg/dL (8.4-10.2); Carbon Dioxide 24 mmol/L (22-29); Chloride 106 mmol/L (96-108); Cholesterol 125 mg/dL (<200); Estimated Glomerular Filt Rate 46; Glucose Fasting 128 mg/dL (60-99); HDL Cholesterol 34 mg/dL (>40); LDL Cholesterol Calculated 70 mg/dL (<100); Potassium 4.6 mmol/L (3.3-5.1); Sodium 139 mmol/L (135-145); Total Protein 7.7 g/dL (6.5-8.0); Triglycerides 106 mg/dL (<150)
[2024-04-01 14:26] LABS: TSH reflex Free T4 1.67 uIU/mL (0.32-4.0); Vitamin D 25-OH Total 29.2 ng/mL (>30)
[2024-04-01 14:41] LABS: Creatinine Urine 207.85 mg/dL; Microalbum/Creatinine Ratio Ur 12.9 ug/mg cr (<30)
== END 2024-04-01 10:10 | disposition home or self-care (01) ==
LOC: HO.HMGCLDS 10:09
PROVIDERS: PCP Internal Medicine; Visit Provider Internal Medicine
DX: E11.22 Type 2 diabetes mellitus with diabetic chronic kidney disease (principal); I12.9 Hypertensive chronic kidney disease with stage 1 through stage 4 chronic kidney disease, or unspecified chronic kidney disease; N18.30 Chronic kidney disease, stage 3 unspecified; E66.01 Morbid (severe) obesity due to excess calories; E78.5 Hyperlipidemia, unspecified; C50.911 Malignant neoplasm of unspecified site of right female breast
CPT/HCPCS: 36415; 80053; 80061; 82043; 82306; 82570; 83036; 84443

== ENCOUNTER 2024-04-07 09:57 | Outpatient (AMB) | payer MEDICARE, MEDICAID, SELFPAY ==
--- NOTE | 2024-04-07 10:10 | A.OFFPC_ITS ---
Vital Signs 04/07/24 10:11 Height 5 ft 2 in Weight 236 lb BMI 43.2 BP 134/76 Blood Pressure Location Lt brachial Position Sitting Pulse 88 Pulse Source Pulse Oximeter Pulse Oximetry (%) 97 Oxygen Delivery Method Room Air Intake Visit Reasons: 3 Month F/U Intake Note: Pt isbhere today for 3 months follow up visit. Allergies albuteral Adverse Reaction (Uncoded 04/07/24 10:15) low oxygen gluten Adverse Reaction (Uncoded 04/07/24 10:15) upset stomach latex Adverse Reaction (Uncoded 04/07/24 10:15) rash Medication List - Last Reconciled 04/07/24 by Tatyana Guzman MD atorvastatin (Lipitor) 20 mg PO DAILY blood sugar diagnostic As directed blood sugar diagnostic ([employer] Verio test strips) 1 TID blood-glucose sensor ([employer] Tim 3 Sensor device) As directed dapagliflozin propanediol (Farxiga) 10 mg PO DAILY exemestane 25 mg PO DAILY gabapentin 400 mg PO TID lancets ([employer]Touch Delica Plus Lancet) As directed levothyroxine 88 mcg PO DAILY losartan 50 mg PO DAILY magnesium glycinate 200 mg orally at bedtime daily; 30 days melatonin 3 mg PO BEDTIME PRN 30 days metformin 1,000 mg PO BID Ozempic (semaglutide) 1 mg (0.75 mL) subcut QWEEK NS Tobacco use date assessed: 04/07/24 Dental Screening Dental Screen Date: 01/14/24 HPI 3 Month F/U HPI Details Pt presents for f/u DM 2, hypothyroid, HTN, hyperlipid, stable on meds. Patient is grieving her father, aunt and cousin who within the last 3 months. PFSH Surgical History Hx of tubal ligation H/O foot surgery Family History Father CAD (coronary artery disease), Onset Age: 70 Substance use disorder Mother COPD (chronic obstructive pulmonary disease) Social History Household Members Other:: , 3 children, on disability Housing: House Patient Tobacco Use Status: Never used Tobacco e-Cigarette/Vaping Use: Never Used service: No Current occupational status: unemployed Cognitive needs: No Hearing needs: No Vision needs: Yes Questionnaire Thrive Questionnaire Date Thrive assessed: 01/14/24 CATHY-7 AMB Questionnaire CATHY-7 Date CATHY - 7 assessed: 01/14/24 Source: Developed by Drs. Kory Matson, Christel Gill, Jose Elizabeth and colleagues, with an educational layne from [employer]. Review of Systems Const All systems reviewed & are unremarkable except as noted in HPI and below Eyes Reports no additional complaints ENT Reports no additional complaints Card Reports no additional complaints Resp Reports no additional complaints GI Reports no additional complaints Reports no additional complaints Physical exam (Primary Care) Vital Signs: Last Vital Signs Pulse 88 04/07/24 10:11 BP 134/76 04/07/24 10:11 Pulse Ox 97 04/07/24 10:11 Oxygen Delivery Method Room Air 04/07/24 10:11 BMI result Body Mass Index 43.2 Tobacco/Smoking Status: Tobacco use Status Tobacco use date assessed 04/07/24 04/07/24 10:19 Patient Tobacco Use Status Never used Tobacco 04/07/24 10:11 e-Cigarette/Vaping Use Never Used 04/07/24 10:11 Thrive Assessment: Date of Thrive Assessment Date Thrive assessed 01/14/24 04/07/24 10:11 Const General: no acute distress HENMT Head: Yes normal to inspection Ears: hearing grossly normal bilaterally Face and sinus: Yes normal facial exam Eyes General: appearance normal, both eyes and all related structures Neck Neck: Yes no lymphadenopathy and Yes supple Resp Effort & Inspection: normal respiratory effort Cardio Rhythm: regular rhythm Heart sounds: S1 normal heart sound present and S2 normal heart sound present GI Inspection: Yes normal to inspection Palpation (GI): Soft to palpation Percussion: Yes normal to percussion Auscultation: normal bowel sounds Assessment and Plan Assessment & Plan (1) DM type 2 (diabetes mellitus, type 2): Code(s): E11.9 - Type 2 diabetes mellitus without complications Qualifiers: Diabetes mellitus longterm insulin use: without feeder associate use Plan: A1c is 6.4, ADA diet increase exercise weight loss discussed with the patient increase Ozempic to 1 mg a day continue metformin and Farxiga follow-up in 3 months with a fasting labs before (2) HTN (hypertension): Code(s): I10 - Essential (primary) hypertension Plan: Continue current medications (3) Obesity, Class III, BMI 40-49.9 (morbid obesity): Code(s): E66.01 - Morbid (severe) obesity due to excess calories Plan: Decrease caloric intake increase physical activity weight loss discussed with the patient (4) CKD stage 3 due to type 2 diabetes mellitus: Code(s): E11.22 - Type 2 diabetes mellitus with diabetic chronic kidney disease; N18.30 - Chronic kidney disease, stage 3 unspecified Plan: Monitor renal function avoid NSAIDs (5) Hyperlipidemia: Code(s): E78.5 - Hyperlipidemia, unspecified Plan: Continue statin Orders: Orders Comprehensive [place]. Panel Fast 3 Months E11.22 - Type 2 diabetes mellitus with diabetic chronic kidney disease, E11.9 - Type 2 diabetes mellitus without complications, E66.01 - Morbid (severe) obesity due to excess calories, I10 - Essential (primary) hypertension, N18.30 - Chronic kidney disease, stage 3 unspecified Hemoglobin A1c 3 Months E11.22 - Type 2 diabetes mellitus with diabetic chronic kidney disease, E11.9 - Type 2 diabetes mellitus without complications, E66.01 - Morbid (severe) obesity due to excess calories, I10 - Essential (primary) hypertension, N18.30 - Chronic kidney disease, stage 3 unspecified Complete Blood Count Auto Diff 3 Months E11.22 - Type 2 diabetes mellitus with diabetic chronic kidney disease, E11.9 - Type 2 diabetes mellitus without complications, E66.01 - Morbid (severe) obesity due to excess calories, I10 - Essential (primary) hypertension, N18.30 - Chronic kidney disease, stage 3 unspecified Lipid Panel 3 Months E11.22 - Type 2 diabetes mellitus with diabetic chronic kidney disease, E11.9 - Type 2 diabetes mellitus without complications, E66.01 - Morbid (severe) obesity due to excess calories, I10 - Essential (primary) hypertension, N18.30 - Chronic kidney disease, stage 3 unspecified Medications: New Ozempic (semaglutide) 1 mg (0.75 mL) subcut QWEEK 9 mL 2RF NS Discontinued Ozempic (semaglutide) Discontinued Reason: Doctor's Order 0.5 mg (0.736 mL) subcut QWEEK 9 mL 2RF NS Coding Level of Care Code Est Pt Level 4 (96733) Diagnoses DM type 2 (diabetes mellitus, type 2) E11.9 Diabetes mellitus longterm insulin use: without feeder associate use HTN (hypertension) I10 Obesity, Class III, BMI 40-49.9 (morbid obesity) E66.01 CKD stage 3 due to type 2 diabetes mellitus E11.22; N18.30 Hyperlipidemia E78.5
[2024-04-07 10:11] VITALS: BP 134/76; PULSE 88; O2SAT 97; BMI 43.2
== END 2024-04-07 11:01 | disposition home or self-care (01) ==
PROVIDERS: PCP Internal Medicine; Visit Provider Internal Medicine
DX: E11.69 Type 2 diabetes mellitus with other specified complication (principal); E11.22 Type 2 diabetes mellitus with diabetic chronic kidney disease; N18.30 Chronic kidney disease, stage 3 unspecified; E66.01 Morbid (severe) obesity due to excess calories; Z68.41 Body mass index [BMI] 40.0-44.9, adult; I10 Essential (primary) hypertension; E78.5 Hyperlipidemia, unspecified
CPT/HCPCS: 99214

== ENCOUNTER 2024-06-16 10:32 | Outpatient (REF) | payer MEDICARE, MEDICAID, SELFPAY ==
[2024-06-18 22:09] LABS: TS Negative Control Passed; TS Panel A 0; TS Panel B 0; TS Positive Control Passed; TSpotTB Negative (Negative)
== END 2024-06-16 10:33 | disposition home or self-care (01) ==
LOC: HO.HMGCLDS 10:32
PROVIDERS: PCP Internal Medicine; Visit Provider Internal Medicine
DX: E11.9 Type 2 diabetes mellitus without complications (principal)
CPT/HCPCS: 36415; 86481

== ENCOUNTER 2024-07-08 09:03 | Outpatient (REF) | payer MEDICARE, MEDICAID, SELFPAY ==
[2024-07-08 09:57] LABS: MANUAL DIFF FLAG NO
[2024-07-08 10:08] LABS: Basophils Percent Auto 0.3 % (0-2); Eosinophils Absolute Auto 0.1 X10*3/uL (0.0-0.4); Eosinophils Percent Auto 2.2 % (0-4); Imm Gran Abs Auto 0.02 X10*3/uL (0.00-0.03); Imm Gran Pct Auto 0.3 % (0.0-0.4); Lymphocytes Absolute Auto 1.3 X10*3/uL (1.2-4.9); Lymphocytes Percent Auto 20.4 % (20-40); Mean Corpuscular HGB Conc 31.7 g/dl (31.0-35.0); Mean Corpuscular Volume 85.2 fL (80.0-98.0); Mean Platelet Volume 11.3 fL (9.4-12.3); Monocytes Absolute Auto 0.3 X10*3/uL (0.1-1.2); Monocytes Percent Auto 4.6 % (2-11); Neutrophils Absolute Auto 4.5 x10*3/uL (2.0-8.3); Neutrophils Percent Auto 72.2 % (45-73); Platelet Count 267 X10*3/uL (160-400); Red Blood Count 4.81 X10*6/uL (4.20-5.50); Red Cell Distribution Width 14.6 % (11.0-16.0); White Blood Count 6.3 X10*3/uL (4.8-10.8)
[2024-07-08 10:16] LABS: Estimated Average Glucose 126 mg/dL
[2024-07-08 10:22] LABS: Alanine Aminotransferase 23 U/L (0-31); Albumin Level 4.4 g/dL (3.5-5.0); Alkaline Phosphatase 88 U/L (39-117); Anion Gap 15 (12-20); Aspartate Amino Transferase 19 U/L (5-31); Bilirubin Total 0.9 mg/dL (0.0-1.0); Blood Urea Nitrogen 21 mg/dL (9-16); Calcium 9.9 mg/dL (8.4-10.2); Carbon Dioxide 26 mmol/L (22-29); Chloride 104 mmol/L (96-108); Cholesterol 104 mg/dL (<200); Estimated Glomerular Filt Rate 44; Glucose Fasting 110 mg/dL (60-99); HDL Cholesterol 28 mg/dL (>40); LDL Cholesterol Calculated 51 mg/dL (<100); Potassium 4.6 mmol/L (3.3-5.1); Sodium 140 mmol/L (135-145); Total Protein 7.3 g/dL (6.5-8.0); Triglycerides 127 mg/dL (<150)
== END 2024-07-08 09:04 | disposition home or self-care (01) ==
LOC: HO.HMGCLDS 09:03
PROVIDERS: PCP Internal Medicine; Visit Provider Internal Medicine
DX: E11.22 Type 2 diabetes mellitus with diabetic chronic kidney disease (principal); I12.9 Hypertensive chronic kidney disease with stage 1 through stage 4 chronic kidney disease, or unspecified chronic kidney disease; N18.30 Chronic kidney disease, stage 3 unspecified; E66.01 Morbid (severe) obesity due to excess calories
CPT/HCPCS: 36415; 80053; 80061; 83036; 85025

== ENCOUNTER 2024-07-08 12:05 | Outpatient (AMB) | payer MEDICARE, MEDICAID, SELFPAY ==
[2024-07-08 12:11] VITALS: BP 118/60; PULSE 78; O2SAT 96; BMI 41.6
--- NOTE | 2024-07-08 12:11 | MHC.PC.OV ---
Vital Signs 07/08/24 12:11 Height 5 ft 2 in Weight 227 lb 6 oz BMI 41.6 BP 118/60 Blood Pressure Location Lt brachial Position Sitting Pulse 78 Pulse Source Pulse Oximeter Pulse Oximetry (%) 96 Oxygen Delivery Method Room Air Intake Visit Reasons: PE/High BP, Diabetes Intake Note: Pt is here today for her Annual Physical. Allergies albuteral Adverse Reaction (Uncoded 04/07/24 10:15) low oxygen gluten Adverse Reaction (Uncoded 04/07/24 10:15) upset stomach latex Adverse Reaction (Uncoded 04/07/24 10:15) rash Tobacco use date assessed: 07/08/24 Dental Screening Dental Screen Date: 07/08/24 Did you have a dental visit in the last 12 months?: Yes Did you have a dental problem in the last 6 months where you did not have access to dental care?: No Was dental information given to patient?: Patient has dentist HPI PE/High BP, Diabetes HPI Details pt presents for PE. Pt's sister in mid May and she is grieving. [facility], [facility] Surgical History Hx of tubal ligation H/O foot surgery Family History Father CAD (coronary artery disease), Onset Age: 70 Substance use disorder Mother COPD (chronic obstructive pulmonary disease) Social History Household Members Other:: , 3 children, on disability Housing: House Patient Tobacco Use Status: Never used Tobacco e-Cigarette/Vaping Use: Never Used service: No Current occupational status: unemployed Cognitive needs: No Hearing needs: No Vision needs: Yes Questionnaire PHQ-9 Over the last 2 weeks, how often have you been bothered by any of the following problems? 1. Little interest or pleasure in doing things: several days 2. Feeling down, depressed, or hopeless: several days 3. Trouble falling or staying asleep, or sleeping too much: several days 4. Feeling tired or having little energy: several days 5. Poor appetite or overeating: several days 6. Feeling bad about yourself - or that you are a failure or have let yourself or your family down: not at all 7. Trouble concentrating on things, such as reading the newspaper or watching television: not at all 8. Moving or speaking so slowly that other people could have noticed. Or the opposite - being so fidgety or restless that you have been moving around a lot more than usual: not at all 9. Thoughts that you would be better off or of hurting yourself in some way: not at all Total score: 5 Depression Screening Interpretation: Negative Depression Screening Done: Yes 81940 - PHQ-9 Billing: Yes Source: Developed by Drs. Kory Matson, Christel Gill, Jose Elizabeth and colleagues, with an educational layne from [employer]. Thrive Questionnaire Date Thrive assessed: 07/08/24 I am a: Patient What is your living situation today?: I have a steady place to live Within the past 12 months, did the food you bought not last and you didn't have the money to get more?: Sometimes True Within the past 12 months, did you worry whether your food would run out before you got money to buy more?: Sometimes True Do you have trouble paying for medicines?: No Do you have trouble getting transportation to medical appointments?: No Do you have trouble paying your heating and electricity bill?: Yes Do you have trouble taking care of your child, family member or friend?: No Do you have trouble with day-to-day activities such as bathing, preparing meals, shopping, managing finances, etc.?: No Are you currently unemployed and looking for a job?: No Are you interested in more education?: No Please select the resources that you would like help with: None Currently or been in a relationship where the following occur: No concerns reported THRIVE Score: 3 AUDIT C Alcohol Use Questionnaire (AUDIT-C) 1. How often do you have a drink containing alcohol?: Monthly or less 2. How many drinks containing alcohol do you have on a typical day when you are drinking?: 1 or 2 3. How often do you have six or more drinks on one occasion?: Less than monthly Total Score: 2 Score Reviewed/Action Taken: Yes CATHY-7 AMB Questionnaire CATHY-7 Date CATHY - 7 assessed: 07/08/24 Feeling nervous, anxious, or on edge: 1 = Several days Not being able to stop or control worryin = Several days Worrying too much about different things: 1 = Several days Trouble relaxin = Several days Being so restless that it is hard to sit still: 1 = Several days Becoming easily annoyed or irritable: 1 = Several days Feeling afraid as if something awful might happen: 1 = Several days Total CATHY-7 score (0-4 normal; 5-9 mild; 10-14 moderate; 15-21 severe): 7 Source: Developed by Drs. Kory Matson, Christel Gill, Jose Elizabeth and colleagues, with an educational layne from [employer]. CATHY-7 Assessment Billing CATHY-7 Assessment Tool: CATHY-7 Assessment 48036 Review of Systems Const All systems reviewed & are unremarkable except as noted in HPI and below Reports no additional complaints Eyes Reports no additional complaints ENT Reports no additional complaints Card Reports no additional complaints Resp Reports no additional complaints GI Reports no additional complaints Reports no additional complaints Physical exam (Primary Care) Vital Signs: Last Vital Signs Pulse 78 07/08/24 12:11 BP 118/60 07/08/24 12:11 Pulse Ox 96 07/08/24 12:11 Oxygen Delivery Method Room Air 07/08/24 12:11 BMI result Body Mass Index 41.6 Tobacco/Smoking Status: Tobacco use Status Tobacco use date assessed 07/08/24 07/08/24 12:13 Patient Tobacco Use Status Never used Tobacco 07/08/24 12:13 e-Cigarette/Vaping Use Never Used 07/08/24 12:13 PHQ-9: PHQ-9 Score PHQ-9: Total score 5 07/08/24 12:20 Depression Screening Interpretation: Negative Thrive Assessment: Date of Thrive Assessment Date Thrive assessed 07/08/24 07/08/24 12:20 Currently or been in a relationship where the following occur: No concerns reported Const General: no acute distress HENMT Head: Yes normal to inspection Face and sinus: Yes normal facial exam Eyes General: appearance normal, both eyes and all related structures Neck Neck: Yes no lymphadenopathy and Yes supple Resp Effort & Inspection: normal respiratory effort Auscultation: clear to auscultation bilaterally Cardio Rhythm: regular rhythm Heart sounds: S1 normal heart sound present and S2 normal heart sound present GI Inspection: Yes normal to inspection Palpation (GI): Soft to palpation Percussion: Yes normal to percussion Auscultation: normal bowel sounds Extrem General: Yes no clubbing, cyanosis or edema Assessment and Plan Assessment & Plan (1) CKD stage 3 due to type 2 diabetes mellitus: Code(s): E11.22 - Type 2 diabetes mellitus with diabetic chronic kidney disease; N18.30 - Chronic kidney disease, stage 3 unspecified Plan: Avoid nephrotoxins monitor renal function (2) Obesity, Class III, BMI 40-49.9 (morbid obesity): Code(s): E66.01 - Morbid (severe) obesity due to excess calories Plan: Weight loss discussed with the patient (3) Hyperlipidemia: Code(s): E78.5 - Hyperlipidemia, unspecified Plan: Continue statin (4) HTN (hypertension): Code(s): I10 - Essential (primary) hypertension Plan: Continue current medications (5) DM type 2 (diabetes mellitus, type 2): Code(s): E11.9 - Type 2 diabetes mellitus without complications Qualifiers: Diabetes mellitus senior living insulin use: 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 Avila Code(s): C50.911 - Malignant neoplasm of unspecified site of right female breast Plan: Follow-up with oncology Coding Level of Care Code Est Pt Prev Care 40-64y(57926) Diagnoses CKD stage 3 due to type 2 diabetes mellitus E11.22; N18.30 Obesity, Class III, BMI 40-49.9 (morbid obesity) E66.01 Hyperlipidemia E78.5 HTN (hypertension) I10 DM type 2 (diabetes mellitus, type 2) E11.9 Diabetes mellitus senior living insulin use: without senior living use Breast cancer, right breast C50.911 Additional Codes CATHY-7 Assessment Billing - CATHY-7 Assessment Tool: CATHY-7 Assessment [id number] ([id number])
== END 2024-07-08 13:29 | disposition home or self-care (01) ==
PROVIDERS: PCP Internal Medicine; Visit Provider Internal Medicine
DX: Z00.00 Encounter for general adult medical examination without abnormal findings (principal); I12.9 Hypertensive chronic kidney disease with stage 1 through stage 4 chronic kidney disease, or unspecified chronic kidney disease; E11.22 Type 2 diabetes mellitus with diabetic chronic kidney disease; N18.30 Chronic kidney disease, stage 3 unspecified; E66.01 Morbid (severe) obesity due to excess calories; C50.911 Malignant neoplasm of unspecified site of right female breast; Z68.41 Body mass index [BMI] 40.0-44.9, adult; E78.5 Hyperlipidemia, unspecified
CPT/HCPCS: 99396

== ENCOUNTER 2024-08-06 10:56 | Outpatient (AMB) | payer MEDICARE, SELFPAY ==
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
[2024-08-06 11:11] VITALS: BMI 41.7
== END 2024-08-06 11:46 | disposition home or self-care (01) ==
PROVIDERS: PCP Internal Medicine; Visit Provider Nurse Practitioner Family
DX: R06.83 Snoring (principal); R40.0 Somnolence; R45.89 Other symptoms and signs involving emotional state
CPT/HCPCS: 99214

== ENCOUNTER → 2024-08-06 10:56 | Outpatient (BNVA) | payer MEDICARE, MEDICAID, SELFPAY | PROVIDERS: PCP Internal Medicine; Visit Provider Nurse Practitioner Family | DX: R06.83 Snoring (principal); R40.0 Somnolence; R45.89 Other symptoms and signs involving emotional state | CPT/HCPCS: 99212 ==

== ENCOUNTER 2024-10-06 09:45 | Outpatient (AMB) | payer MEDICARE, MEDICAID, SELFPAY ==
--- NOTE | 2024-10-06 09:48 | MHC.PC.OV ---
Vital Signs 10/06/24 09:49 Height 5 ft 2 in Weight 226 lb BMI 41.3 BP 122/60 Blood Pressure Location Rt brachial Position Sitting Pulse 64 Pulse Source Pulse Oximeter Pulse Oximetry (%) 98 Oxygen Delivery Method Room Air Intake Visit Reasons: 3m follow up Intake Note: Pt is here today for her 3mo. f/u Allergies albuteral Adverse Reaction (Uncoded 10/06/24 09:51) low oxygen gluten Adverse Reaction (Uncoded 10/06/24 09:51) upset stomach latex Adverse Reaction (Uncoded 10/06/24 09:51) rash Medication List - Last Reconciled 10/06/24 by Tatyana Guzman MD atorvastatin (Lipitor) 20 mg PO DAILY blood sugar diagnostic As directed blood sugar diagnostic ([place] Verio test strips) 1 TID blood-glucose sensor (alaTestStyle Tim 3 Sensor device) As directed exemestane 25 mg PO DAILY Farxiga (dapagliflozin propanediol) 10 mg PO DAILY NS gabapentin 400 mg PO TID lancets (ZeOmegaTouch Delica Plus Lancet) As directed levothyroxine 88 mcg PO DAILY losartan 50 mg PO DAILY magnesium glycinate 200 mg orally at bedtime daily; 30 days melatonin 3 mg PO BEDTIME PRN 30 days metformin 1,000 mg PO BID Ozempic (semaglutide) 1 mg (0.75 mL) subcut QWEEK NS Tobacco use date assessed: 10/06/24 Dental Screening Dental Screen Date: 10/06/24 Did you have a dental visit in the last 12 months?: No Did you have a dental problem in the last 6 months where you did not have access to dental care?: No Was dental information given to patient?: Patient declined HPI 3m follow up HPI Details Pt presents for DM2, HTN, hyperlipid, stable on meds. PFSH Medical History Sleep apnea JONAH (obstructive sleep apnea) Surgical History Hx of tubal ligation H/O foot surgery Family History Father CAD (coronary artery disease), Onset Age: 70 Substance use disorder Mother COPD (chronic obstructive pulmonary disease) Social History Household Members Other:: , 3 children, on disability Housing: House Patient Tobacco Use Status: Never used Tobacco e-Cigarette/Vaping Use: Never Used service: No Current occupational status: unemployed Cognitive needs: No Hearing needs: No Vision needs: Yes Questionnaire Thrive Questionnaire Date Thrive assessed: 07/08/24 I am a: Patient What is your living situation today?: I have a steady place to live Within the past 12 months, did the food you bought not last and you didn't have the money to get more?: Sometimes True Within the past 12 months, did you worry whether your food would run out before you got money to buy more?: Sometimes True Do you have trouble paying for medicines?: No Do you have trouble getting transportation to medical appointments?: No Do you have trouble paying your heating and electricity bill?: Yes Do you have trouble taking care of your child, family member or friend?: No Do you have trouble with day-to-day activities such as bathing, preparing meals, shopping, managing finances, etc.?: No Are you currently unemployed and looking for a job?: No Are you interested in more education?: No Please select the resources that you would like help with: None Currently or been in a relationship where the following occur: No concerns reported THRIVE Score: 3 CATHY-7 AMB Questionnaire CATHY-7 Date CATHY - 7 assessed: 07/08/24 Source: Developed by Drs. Kory Matson, Christel Gill, Jose Elizabeth and colleagues, with an educational layne from [employer]. Review of Systems Const All systems reviewed & are unremarkable except as noted in HPI and below Eyes Reports no additional complaints ENT Reports no additional complaints Card Reports no additional complaints Resp Reports no additional complaints GI Reports no additional complaints Reports no additional complaints Physical exam (Primary Care) Vital Signs: Last Vital Signs Pulse 64 10/06/24 09:49 BP 122/60 10/06/24 09:49 Pulse Ox 98 10/06/24 09:49 Oxygen Delivery Method Room Air 10/06/24 09:49 BMI result Body Mass Index 41.3 Tobacco/Smoking Status: Tobacco use Status Tobacco use date assessed 10/06/24 10/06/24 09:53 Patient Tobacco Use Status Never used Tobacco 10/06/24 09:53 e-Cigarette/Vaping Use Never Used 10/06/24 09:53 Thrive Assessment: Date of Thrive Assessment Date Thrive assessed 07/08/24 10/06/24 09:53 Currently or been in a relationship where the following occur: No concerns reported Const General: no acute distress HENMT Head: Yes normal to inspection Mouth: Normal oral and palatal mucosa present Eyes General: appearance normal, both eyes and all related structures Neck Neck: Yes no lymphadenopathy and Yes supple Resp Effort & Inspection: normal respiratory effort Auscultation: clear to auscultation bilaterally Cardio Rhythm: regular rhythm Heart sounds: S1 normal heart sound present and S2 normal heart sound present GI Inspection: Yes normal to inspection Palpation (GI): Soft to palpation Percussion: Yes normal to percussion Auscultation: normal bowel sounds Coding Level of Care Code Est Pt Level 4 (47878) Diagnoses Hyperlipidemia E78.5 HTN (hypertension) I10 DM type 2 (diabetes mellitus, type 2) E11.9 Diabetes mellitus longterm insulin use: 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 Obesity E66.9 CKD stage 3 due to type 2 diabetes mellitus E11.22; N18.30 Assessment & Plan Assessment & Plan (1) Hyperlipidemia: Code(s): E78.5 - Hyperlipidemia, unspecified Category: Medical Plan: cont statin (2) HTN (hypertension): Code(s): I10 - Essential (primary) hypertension Category: Medical Plan: cont meds (3) DM type 2 (diabetes mellitus, type 2): Code(s): E11.9 - Type 2 diabetes mellitus without complications Category: Medical Qualifiers: 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 Follow-up in 3 months with a fasting labs before (4) Obesity: Code(s): E66.9 - Obesity, unspecified Category: Medical Plan: Decreasing caloric intake increasing physical activity discussed with the patient (5) CKD stage 3 due to type 2 diabetes mellitus: Code(s): E11.22 - Type 2 diabetes mellitus with diabetic chronic kidney disease; N18.30 - Chronic kidney disease, stage 3 unspecified Category: Medical Plan: Monitor renal function avoid nephrotoxins Orders: Orders Comprehensive [place]. Panel Fast 3 Months E11.22 - Type 2 diabetes mellitus with diabetic chronic kidney disease, E11.9 - Type 2 diabetes mellitus without complications, E78.5 - Hyperlipidemia, unspecified, I10 - Essential (primary) hypertension, N18.30 - Chronic kidney disease, stage 3 unspecified Lipid Panel 3 Months E11.22 - Type 2 diabetes mellitus with diabetic chronic kidney disease, E11.9 - Type 2 diabetes mellitus without complications, E78.5 - Hyperlipidemia, unspecified, I10 - Essential (primary) hypertension, N18.30 - Chronic kidney disease, stage 3 unspecified Complete Blood Count Auto Diff 3 Months E11.22 - Type 2 diabetes mellitus with diabetic chronic kidney disease, E11.9 - Type 2 diabetes mellitus without complications, E78.5 - Hyperlipidemia, unspecified, I10 - Essential (primary) hypertension, N18.30 - Chronic kidney disease, stage 3 unspecified Hemoglobin A1c 3 Months E11.22 - Type 2 diabetes mellitus with diabetic chronic kidney disease, E11.9 - Type 2 diabetes mellitus without complications, E78.5 - Hyperlipidemia, unspecified, I10 - Essential (primary) hypertension, N18.30 - Chronic kidney disease, stage 3 unspecified Microalbumin, Random (w Creat) 3 Months E11.22 - Type 2 diabetes mellitus with diabetic chronic kidney disease, E11.9 - Type 2 diabetes mellitus without complications, E78.5 - Hyperlipidemia, unspecified, I10 - Essential (primary) hypertension, N18.30 - Chronic kidney disease, stage 3 unspecified TSH reflex Free T4 3 Months E11.22 - Type 2 diabetes mellitus with diabetic chronic kidney disease, E11.9 - Type 2 diabetes mellitus without complications, E78.5 - Hyperlipidemia, unspecified, I10 - Essential (primary) hypertension, N18.30 - Chronic kidney disease, stage 3 unspecified Medications: New Ozempic (semaglutide) 2 mg (0.75 mL) subcut QWEEK 9 mL 3RF NS Ozempic (semaglutide) 2 mg (0.75 mL) subcut QWEEK 9 mL 3RF NS Refilled gabapentin 1 capsule in the am and noon and 2 capsules at night 400 mg PO TID 360 caps 3RF levothyroxine 88 mcg PO DAILY 90 tabs 3RF losartan 50 mg PO DAILY 90 tabs 3RF atorvastatin (Lipitor) 20 mg PO DAILY 90 tabs 3RF Farxiga (dapagliflozin propanediol) 10 mg PO DAILY 90 tabs 3RF NS metformin 1,000 mg PO BID 180 tabs 3RF Discontinued Ozempic (semaglutide) Discontinued Reason: Doctor's Order 1 mg (0.75 mL) subcut QWEEK 9 mL 2RF NS
[2024-10-06 09:49] VITALS: BP 122/60; PULSE 64; O2SAT 98; BMI 41.3
== END 2024-10-06 10:50 | disposition home or self-care (01) ==
PROVIDERS: PCP Internal Medicine; Visit Provider Internal Medicine
DX: I12.9 Hypertensive chronic kidney disease with stage 1 through stage 4 chronic kidney disease, or unspecified chronic kidney disease (principal); E11.22 Type 2 diabetes mellitus with diabetic chronic kidney disease; N18.30 Chronic kidney disease, stage 3 unspecified; E66.9 Obesity, unspecified; Z68.41 Body mass index [BMI] 40.0-44.9, adult; E78.5 Hyperlipidemia, unspecified

== ENCOUNTER → 2024-10-06 09:45 | Outpatient (BNVA) | payer MEDICARE, MEDICAID, SELFPAY | PROVIDERS: PCP Internal Medicine; Visit Provider Internal Medicine | DX: E78.5 Hyperlipidemia, unspecified (principal); I12.9 Hypertensive chronic kidney disease with stage 1 through stage 4 chronic kidney disease, or unspecified chronic kidney disease; E11.22 Type 2 diabetes mellitus with diabetic chronic kidney disease; N18.30 Chronic kidney disease, stage 3 unspecified | CPT/HCPCS: 99212 ==

== ENCOUNTER 2024-12-28 09:47 | Outpatient (REF) | payer OTHER, MEDICAID, SELFPAY ==
--- OUTSIDE RECORDS SUMMARY | 2024-12-28 10:44 | XMS_ITS | Clinical Summary ---
Author Organization [facility] Address [address] [place] [address] Phone Care Team Providers Care Airconditioning Plant Operator Name Role Phone Tatyana Guzman MD Primary Care Provider [phone] Allergies Active Allergy Reactions Criticality Noted Date Comments Albuterol 02/20/2013 Other reaction(s): Latex, SOB, Wheezing Per [facility] Per [facility] notes Gluten 09/01/2010 Other reaction(s): OTHER Throat tightens/tickles Latex 03/17/2009 Other reaction(s): itch Other reaction(s): itch Lisinopril High 09/09/2014 Other reaction(s): Rash/Dermatitis Per [facility] notes Medications atorvastatin (LIPITOR) 20 mg tablet 09/11/20 Active dapagliflozin propanediol (Farxiga) 10 mg tablet Take by mouth daily. Active gabapentin (NEURONTIN) 400 mg capsule Take 1 capsule (400 mg total) by mouth 3 (three) times a day. 08/25/20 Active levothyroxine sodium (TIROSINT) 125 mcg capsule Take 88 mcg by mouth. 02/16/20 Active losartan (COZAAR) 50 mg tablet Take 1 tablet (50 mg total) by mouth 1 (one) time each day. Active metFORMIN (GLUCOPHAGE) 1,000 mg tablet Take 1 tablet (1,000 mg total) by mouth 2 (two) times a day. 05/28/20 Active semaglutide (Ozempic) 0.25 mg or 0.5 mg(2 mg/1.5 mL) injection pen Inject under the skin. Active glipiZIDE (GLUCOTROL) 5 mg tablet - Route: Take 1 tablet (5 mg total) by mouth 2 (two) times a day before breakfast and dinner. - Oral Active exemestane (AROMASIN) 25 mg tablet Take 1 tablet (25 mg total) by mouth 1 (one) time each day 30 tablet 2 12/17/19 25 025 Active exemestane (AROMASIN) 25 mg tablet TAKE 1 TABLET(25 MG) BY MOUTH DAILY 02/27/20 24 025 Discontinued Encounters Date Type Department Care Team Description 12/11/2024 10:28 AM EST - 12/11/2024 11:59 PM EST [facility] [address] [address] Encounter for screening mammogram for malignant neoplasm of breast Discharge Disposition: Home or Self Care from Last 3 Months Surgical History Surgery Date Site/Laterality Comments BREAST BIOPSY 11/04/2021 - 11/03/2022 Right BREAST BIOPSY 11/04/1992 - 11/03/1993 Left BENIGN BREAST LUMPECTOMY 11/04/2021 - 11/03/2022 Right Medical History Medical History Date Comments Breast cancer (CMS/HCC) 08/2022 Invasive Lobular Carcinoma Right Breast treated with radiation Family History Medical History Relation Name Comments Cancer Father's Brother Stomach can cer Cancer Father's Sister 1 Breast Can cer Cancer Father's Sister 2 Breast can cer Cancer Father's Sister 3 Throat can cer Relation Name Status Comments Father's Brother Father's Sister 1 Alive Father's Sister 2 Alive Father's Sister 3 Social History Tobacco Use Types Packs/Day Years Used Date Smoking Tobacco: Never Smokeless Tobacco: Never Alcohol Use Standard Drinks/Week Comments Not Currently 0 (1 standard drink = 0.6 oz pur e alcohol) Comments No Sex and Gender Information Value Date Recorded Sex Assigned at Not on file Legal Sex Female 10:04 AM EST Gender Identity Not on file Sexual Orientation Not on file Obstetrics History Para Term AB IAB SAB Ectopic Multiple Livin g Live Births 3 Last Filed Vital Signs Vital Sign Reading Time Taken Comments Blood Pressure 139/66 07/15/2024 3:55 PM EDT Pulse 65 07/15/2024 3:55 PM EDT Temperature - - Respiratory Rate - - Oxygen Saturation - - Inhaled Oxygen Concentration - - Weight 99.8 kg (220 lb) 12/11/2024 10:43 AM EST Height 157.5 cm (5' 2 ) 12/11/2024 10:43 AM EST Body Mass Index 40.24 12/11/2024 10:43 AM EST Plan of Treatment Upcoming Encounters Date Type Department Care Team (Late st Contact Info) Description 01/15/2025 10:45 AM EDT Office Visit [facility] Hematology Oncology [address] [place] [phone] Festus Avila MD [address] [place] [address] 02/17/2025 3:30 PM EDT Office Visit Breast Care [facility] [address] [facility] [address] [place] [phone] Lorena Rehman MD [address] [facility] [address] [place] [address] 12/13/2025 11:00 AM EST [facility]ointment [facility] [address] [phone] Health Maintenance Due Date Last Done Comments Diabetes: Annual GFR (Glomerular Filtration Rate) 1962 COVID-19 Vaccine (#1) 1967 Diabetes: Annual Foot Exam 02/02/1972 Diabetes: Annual Retina Eye Exam 02/02/1972 Hepatitis A Vaccines (1 of 2 - Risk 2-dose series) 1981 Zoster Vaccines (1 of 2) 1981 Cervical Cancer Screening: Pap Smear 1983 Pneumococcal Vaccine: 50+ Years (3 of 3 - PCV) 10/27/2019 10/27/2018, 06/04/2012 Pneumococcal Vaccine: Pediatrics (0 to 5 Years) and At-Risk Patients (6 to 64 Years) (3 of 3 - PCV) 10/27/2019 10/27/2018, 06/04/2012 Hepatitis B Vaccines (1 of 3 - Risk 3-dose series) 2022 RSV Immunization Patients 60+ Years Old (1 - Risk 60-74 years 1-dose series) 2022 Cholesterol Screening (Lipid Panel) 10/02/2022 Depression Screening 10/02/2022 HIV Screening 10/02/2022 Hepatitis C Screening 10/02/2022 Medicare Annual Wellness Visit 10/02/2022 Social Influencers of Health Screening 10/02/2022 Hypertension/CHF/CAD Annual BMP Blood Test 10/11/2022 Influenza Vaccine (#1) 2024 , 09/23/2019, 09/19/2018, Additional history exists Diabetes: Annual Urine Albumin-Creatinine Ratio (uACR) 12/11/2024 Diabetes: Blood Sugar Control Test (HGBA1C) 12/11/2024 Colorectal Cancer Screening: FIT-DNA (Cologuard) 05/01/2026 05/01/2023, 05/01/2023 Breast Cancer Screening 12/11/2026 12/11/2024 DTaP,Tdap,and Td Vaccines (4 - Td or Tdap) 09/19/2028 09/19/2018, 03/17/2009, 01/02/1998 HIB Vaccines Aged Out No longer eligi ble based on patient's age to complete this topic HPV Vaccines Aged Out No longer eligi ble based on patient's age to complete this topic IPV Vaccines Aged Out No longer eligi ble based on patient's age to complete this topic MMR Vaccines Aged Out No longer eligi ble based on patient's age to complete this topic Meningococcal ACWY Vaccine Aged Out N o longer eligible based on patient's age to complete this topic Meningococcal B Vacine Aged Out No lo nger eligible based on patient's age to complete this topic RSV Immunization Patients Under 20 months Aged Out No longer eligible based on patient's age to complete this topic Varicella Vaccines Aged Out No longer eligible based on patient's age to complete this topic Procedures Procedure Name Priority Date/Time Associated Diagnosis Comments MG MAMMO DIGITAL DIAGNOSTIC W DAVID BILAT Routine 12/11/2024 11:07 AM EST Encounter for screening mammogram for malignant neoplasm of breast from Last 3 Months Results * MG Mammo Digital Diagnostic w David bilat (12/11/2024 11:07 AM EST) Anatomical Region Laterality Modality Breast Bilateral Mammography 12/11/2024 11:0 2 AM EST Impressions 12/11/2024 11:06 AM EST Stable post lumpectomy changes. Recommend return return to routine screening in one year. Findings and recommendations were conveyed to the patient. ? BI-RADS CATEGORY: 2 - BENIGN RECOMMENDATION: Screening bilateral mammogram is recommended in 1 year. Mammo Location: [facility], [address] [place] [address], [address], . -------- FINAL REPORT -------- Dictated By: Arti Barrios Dictated Date: 12/11/2024 11:02 ET Assigned Physician: Arti Barrios Reviewed and Electronically Signed By: Arti Barrios Signed Date: 12/11/2024 11:06 ET Workstation ID: [id number] Transcribed By: Self Edit Transcribed Date: 12/11/2024 11:02 ET Narrative 12/11/2024 11:06 AM EST CLINICAL: 64 years old, Female, follow-up diagnostic mammogram per lumpectomy protocol. History of right breast cancer. COMPARISON: 12/09/2023, 01/10/2023, 08/27/2022 and 07/12/2022 ?? FINDINGS: MAMMOGRAPHY TECHNIQUE: Bilateral MLO and CC views were obtained digitally with 3-D mammogram (digital breast tomosynthesis). ??Computer-aided detection was utilized in evaluation of this exam (CAD). Stable post lumpectomy changes in the right upper outer quadrant at posterior depth. There is no evidence of suspicious mass or architectural distortion. ??No worrisome calcifications are evident. ??There has been no significant change from prior exam(s). ?? BREAST DENSITY: B - There are scattered areas of fibroglandular density. Procedure Note Arti Barrios MD - 12/11/2024 CLINICAL: 64 years old, Female, follow-up diagnostic mammogram perlumpectomy protocol. History of right breast cancer. COMPARISON: 12/09/2023, 01/10/2023, 08/27/2022 and 07/12/2022 FINDINGS: MAMMOGRAPHY TECHNIQUE: Bilateral MLO and CC views were obtained digitally with 3-Dmammogram (digital breast tomosynthesis). Computer-aided detection wasutilized in evaluation of this exam (CAD). Stable post lumpectomy changes in the right upper outer quadrant atposterior depth. There is no evidence of suspicious mass or architecturaldistortion. No worrisome calcifications are evident. There has been nosignificant change from prior exam(s). BREAST DENSITY: B - There are scattered areas of fibroglandular density. IMPRESSION: Stable post lumpectomy changes. Recommend return return to routinescreening in one year. Findings and recommendations were conveyed to thepatient. BI-RADS CATEGORY: 2 - BENIGN RECOMMENDATION: Screening bilateral mammogram is recommended in 1 year. Mammo Location: [facility], [address] [place] [address], [phone], . -------- FINAL REPORT -------- Dictated By: Arti Barrios Dictated Date: 12/11/2024 11:02 ET Assigned Physician: Arti Barrios Reviewed and Electronically Signed By: Arti Barrios Signed Date: 12/11/2024 11:06 ET Workstation ID: [id number] Transcribed By: Self Edit Transcribed Date: 12/11/2024 11:02 ET Tatyana Guzman MD IMG BI PROCEDURES Final Result from Last 3 Months Insurance MEDICAID - [place] [employer] MEDICARE Care Teams Airconditioning Plant Operator Relationship Specialty Start Date End Date Tatyana Guzman MD PCP - General 10/15/23
--- OUTSIDE RECORDS SUMMARY | 2024-12-28 10:44 | XMS_ITS | Patient Health Record ---
Author Organization [facility] Address [address] [place] [address] Care Team Providers Care Jet Handler Name Role Phone CIPIRANO CHATMAN, AGNIESZKA Primary Care Provider Antonella Kyra Beasley Unavailable [phone] Allergies Allergen (clinical drug ingredient) Drug/Non Drug Allergy documented on EMR Reaction Allergy Type Onset Date Status Gluten (celiac disease) (uncoded) Unknown Allergy Active Latex Latex (uncoded) rash Allergy Acti ve albuterol Albuterol cant breathe Drug Allergy Acti ve Reason For Referral No Information Medications Medication SIG (Take, Route, Frequency, Duration) Notes Start Date End Date Status Tirosint 100 MCG 1 capsule Orally Onc e a day Active metFORMIN HCl 500 MG 1 tablet with a lukas l Orally Once a day Active Sertraline HCl 50 MG 1 tablet Orally Onc e a day Not-Taking Furosemide 40mg 1 tab Oral Not -Taking Estradiol Vaginal Cream 0.01% 1 Gram externally Twice a week for 90 days 11/18/2019 Active Social History Tobacco Use: Social History Observation Description Date Details (start date - stop date) Never Smoker NA - NA Tobacco Use/Smoking Question Answer Notes Are you a nonsmoker Alcohol Screen (Audit-C) Question Answer Notes Did you have a drink contain ing alcohol in the past year? Yes How often did you have a dri nk containing alcohol in the past year? Monthly or less (1 point) How many drinks did you have on a typical day when you were drinking in the past year? 1 or 2 drinks (0 point) Points 1 Interpretation Negative Tobacco use other than smoking: Question Answer Notes Are you an other tobacco user? No Problems Problem Type SNOMED Code ICD Code Onset Dates Problem Status W/U Status Risk Notes Problem Postmenopausal atrophic vaginitis (81307165) Postmenopausal atrophic vaginitis (N95.2) Active confirmed Problem SI - Stress incontinence (91189039) Stress incontinence (female) (male) (N39.3) Active confirmed Problem Postmenopausal bleeding (88289810) Postmenopausal bleeding (N95.0) Active confirmed Problem Essential hypertension (83416714) Essential (primary) hypertension (I10) Active confirmed Problem Hypothyroidism (01540664) Hypothyroidism, unspecified (E03.9) Active confirmed Problem Major depression, single episode (62167132) Major depressive disorder, single episode, unspecified (F32.9) Active confirmed Problem Type II diabetes mellitus without complication (199243664) Type 2 diabetes mellitus without complications (E11.9) Active confirmed Problem Obesity (746133679) Obesity, unspecified (E66.9) Active confirmed Problem Chronic migraine without aura, non-refractory (disorder) (571335715814384) Migraine without aura, not intractable, without status migrainosus (G43.009) Active confirmed Problem Celiac disease (778340143) Celiac disease (K90.0) Active confirmed Problem Midline cystocele (553218860) Cystocele, midline (N81.11) Active confirmed Problem Perimenopausal disorder (733382965) Other specified menopausal and perimenopausal disorders (N95.8) Active confirmed Plan Of Treatment Pending Test Test Name Order Date Ultrasound : Sono Hystergram 11/12/2018 [facility] Digital Mammo Screening 11/18/2019 MM Digital Mammo Screening 11/23/2020 Insurance Providers Payer Name Payer Address Payer Phone Subscriber Number Group Number Insured Name Patient Relationship to Insured Coverage Start Date Coverage End Date [facility] [address] [place] [phone] [id number] HEVER [place] Spouse - patient is the spouse of the insured 1 Medical (General) History Surgical History Surgery Date(Month/Year) Lymphoma 1994 Tubal ligation 1991 Bx on Left Breast-Benign 1988 Hospitalization History Reason Date(Month/Year) See surgical hx
--- OUTSIDE RECORDS SUMMARY | 2024-12-28 10:45 | XMS_ITS | Clinical Summary ---
Author Organization [facility] Address [address] [place], [place] [id number] Care Team Providers Care Cnc Supervisor Name Role Phone Tatyana Guzman MD Primary Care Provider [phone] Allergies Active Allergy Reactions Criticality Noted Date Comments Albuterol 02/20/2013 Other reaction(s): Latex, SOB, Wheezing Per [facility] notes Per [facility] notes Gluten 09/01/2010 Other reaction(s): OTHER Throat tightens/tickles Latex 03/17/2009 Other reaction(s): itch Other reaction(s): itch Lisinopril High 09/09/2014 Other reaction(s): Rash/Dermatitis Per [facility] notes Medications Medication Sig Dispensed Refills Start Date End Date Status atorvastatin (LIPITOR) tablet 20 mg 0 09/11/2022 Active gabapentin (NEURONTIN) 400 MG capsule Take 1 capsule (400 mg total) by mouth 3 (three) times a day. 0 08/25/2022 Active Levothyroxine Sodium 125 MCG CAPS Take 88 mcg by mouth. 0 02/15/2022 Active metFORMIN (GLUCOPHAGE) tablet 1000 mg Take 1 tablet (1,000 mg total) by mouth 2 (two) times a day. 0 05/28/2022 Active losartan (COZAAR) tablet 50 mg Take 1 tablet (50 mg total) by mouth daily. 0 Active dapagliflozin (Farxiga) 10 MG tablet Take by mouth daily. 0 Active Semaglutide,0.25 or 0.5MG/DOS, (Ozempic, 0.25 or 0.5 MG/DOSE,) 2 MG/1.5ML SOPN Inject under the skin. 0 Active exemestane (AROMASIN) 25 MG tablet TAKE 1 TABLET(25 MG) BY MOUTH DAILY 30 tablet 9 02/27/2024 Active glipiZIDE (GLUCOTROL) tablet 5 mg Take 1 tablet (5 mg total) by mouth 2 (two) times a day before breakfast and dinner. 0 Active Active Problems No known active problems Family History Medical History Relation Name Comments Cancer Paternal Aunt 1 Breast Cance r Cancer Paternal Aunt 2 Breast cance r Cancer Paternal Aunt 3 Throat cance r Cancer Paternal Uncle Stomach cance r Relation Name Status Comments Paternal Aunt 1 Alive Paternal Aunt 2 Alive Paternal Aunt 3 Paternal Uncle Social History Tobacco Use Types Packs/Day Years Used Date Smoking Tobacco: Never Passive Smoke Exposure: Past Smokeless Tobacco: Never Tobacco Cessation:Counseling Given: Not Answered Alcohol Use Standard Drinks/Week Comments Not Currently 0 (1 standard drink = 0.6 oz pur e alcohol) Social Sex and Gender Information Value Date Recorded Sex Assigned at Not on file Gender Identity Not on file Sexual Orientation Not on file Job Start Date Occupation Industry Not on file Not on file Not on file Last Filed Vital Signs Vital Sign Reading Time Taken Comments Blood Pressure 148/60 07/15/2024 11:17 AM EDT Pulse 62 07/15/2024 11:17 AM EDT Temperature 36.3 ??C (97.3 ??F) 07/15/2024 11:17 AM E DT Respiratory Rate - - Oxygen Saturation 100% 07/15/2024 11:17 AM EDT Inhaled Oxygen Concentration - - Weight 103.4 kg (228 lb) 07/15/2024 11:17 AM EDT Height 157.5 cm (5' 2 ) 10/15/2023 10:53 AM EST Body Mass Index 41.7 10/15/2023 10:53 AM EST Plan of Treatment Health Maintenance Due Date Last Done Comments Hepatitis C Screening 1962 COVID-19 Vaccine (#1) 1967 Depression Screening 1974 Preventative Health Evaluation 02/02/1980 Shingrix-Zoster Vaccine (1 of 2) 1981 Cervical Cancer Screening (Pap Smear) 1983 Colon Cancer Screening (Colonoscopy) 2007 Breast Cancer Screening (Mammogram) 02/02/2012 DTap / Tdap / Td (2 - Td or Tdap) 03/17/2019 03/17/2009, 01/02/1998 Pneumococcal Vaccine (3 of 3 - PCV) 10/27/2019 10/27/2018, 06/04/2012 RSV Adult > 60+ Yrs or (1 - Risk 60-74 years 1-dose series) 2022 Influenza Vaccine (#1) 2024 , 09/23/2019, 09/19/2018, Additional history exists Hepatitis B Vaccines Aged Out No long er eligible based on patient's age to complete this topic RSV Ped < 20 months Aged Out No longe r eligible based on patient's age to complete this topic Care Teams Cnc Supervisor Relationship Specialty Start Date End Date Tatyana Guzman MD [address] [place] [address] PCP - General Math Teacher 10/15/23
--- OUTSIDE RECORDS SUMMARY | 2024-12-28 10:45 | XMS_ITS | Clinical Summary ---
Author Organization [facility] Address [address] [place] [address], [place] [address] Care Team Providers Care General Office Dispatcher Name Role Phone Bonnie Westfall MD Primary Care Provider [phone] Social History Tobacco Use Types Packs/Day Years Used Date Smoking Tobacco: Never Assessed Comments Unknown Sex and Gender Information Value Date Recorded Sex Assigned at Not on file Legal Sex Female 4:44 PM EST Gender Identity Not on file Sexual Orientation Not on file Plan of Treatment Health Maintenance Due Date Last Done Comments Breast Cancer Screening 1962 Pneumococcal Vaccine: Pediat rics (0 to 5 Years) and At-Risk Patients (6 to 64 Years) (1 of 2 - PCV) 02/02/1968 Colorectal Cancer Screening: Annual FOBT 2011 Colorectal Cancer Screening: Colonoscopy 2011 Colorectal Cancer Screening: Sigmoidoscopy 2011 Influenza Vaccine (#1) 2024 Hepatitis B Vaccine Aged Out No longe r eligible based on patient's age to complete this topic Insurance MEDICARE [place]ICAID [place] Care Teams General Office Dispatcher Relationship Specialty Start Date End Date Bonnie Westfall MD [address] [place] [phone] PCP - General Internal Medicine 08/08/22
--- OUTSIDE RECORDS SUMMARY | 2024-12-28 10:45 | XMS_ITS | Clinical Summary ---
Author Organization [facility] Address [address] [place] [address] Care Team Providers Care Bullet Maker Name Role Phone Arti King [facility] Primary Care Provider [phone] Source Comments PLEASE NOTE, if this patient is a minor, it may be UNLAWFUL to discuss sensitive information that is contained in these records (such as FAMILY PLANNING, MENTAL HEALTH or SUBSTANCE ABUSE) with the minor patient's parent or other person without the patient's specific authorization.[facility] Allergies Active Allergy Reactions Criticality Noted Date Comments Albuterol 03/14/2016 Per [facility] notes Gluten Flour 2016 Latex 2016 Lisinopril 03/14/2016 Per [facility] notes Medications ketotifen (ZADITOR) 0.025 % (0.035 %) ophthalmic solutionIndications :Allergic conjunctivitis, bilateral Place 1 Drop into both eyes 2 (two) times daily. 10 mL 0 6 Active lancetsIndications: Type 2 diabetes mellitus without complication ([facility]) Check BS TID before meals E11.9 100 Each 2 6 Active blood sugar diagnostic stripsIndications:T ype 2 diabetes mellitus without complication ([facility]) Check BS TID before meals E11.9 100 Each 2 6 Active glipiZIDE (GLUCOTROL XL) 2.5 mg ER, 24 hour tabletIndications:D iabetes mellitus type 2, uncontrolled Take 1 Tab by mouth 2 (two) times daily with a meal. Swallow whole. Do not break, crush or chew. 60 Tab 3 6 Active simvastatin (ZOCOR) 20 mg tabletIndications:H yperlipidemia, unspecified hyperlipidemia Take 1 Tab by mouth nightly at bedtime. 30 Tab 2 6 Active TIROSINT 100 mcg capsule TAKE 1 CAPSULE BY MOUTH EVERY MORNING 28 Cap 0 7 Active Active Problems Problem Noted Date Diagnosed Date Right elbow pain 03/19/2016 Overview (03/19/2016): Xray 03/14/16 at [facility] is neg for fracture. Leiomyoma of uterus 03/14/2016 Overview (03/14/2016): Per [facility] notes. Entrapment neuropathy of L wrist 03/14/2016 Overview (03/14/2016): L volar wrist hypersensitviity to touch- did EMG at [facility]. Obstructive sleep apnea 03/14/2016 Overview (03/14/2016): Polysomnogram at [place] 08/10/13, has CPAP Papanicolaou smear 03/14/2016 Overview (03/14/2016): Pap smear 07/01/12 at [facility] [place]., Negative for squamous intraepithelial lesion and malignancy, neg HPV H/O mammogram 03/14/2016 Overview (03/14/2016): Mammogram 09/17/14 at [facility] is BIRADS 1 H/O colonoscopy 03/14/2016 Overview (03/14/2016): Colonoscopy at [facility] 05/16/09 and normal. CKD (chronic kidney disease) stage 3, GFR 30-59 ml/min ([facility]) 02/17/2016 Overview (04/25/2016): Previously managed by Dr Ramos at [facility]. Thought to be d/t hypoperfusion given obesity and JONAH. 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 Celiac disease 2016 Overview (04/25/2016): Seen on endoscopy; duodenum biopsy shows intraepithelial lymphocytes ([place] Stage I) NAFLD (nonalcoholic fatty liver disease) 016 Overview (2016): Had CT of abd and pelvix 09/28/14 d/t elevated LFT's. Findings of hepatic steatosis, hepatomegaly. Seen at [facility], Dr Galeano. LFT's possibly d/t infectious hepatitis type of illness. Fibroid (bleeding) (uterine) 2016 Overview (03/28/2016): Pelvic U/S 02/19/16 at [facility] shows 5.3 cm diameter fundal fibroid. Managed by Jada Sommers CNM Left ankle pain 2016 H/O kidney injury 2016 Overview (2016): H/o CHARITY, seen by Dr Ramos 11/26/14. Unknown etiology, possibly d/t hypoperfusion. Immunizations Name Administration Dates Next Due INFLUENZA, SEASONAL, INJECTABLE 06/27/2017,08/11 PNEUMOCOCCAL POLYSACCHARIDE PPV23 06/04/2012 TDAP 03/17/2009 Td(adult),2 Lf tetanus toxoid,preservative free 01/02/1998 Social History Tobacco Use Types Packs/Day Years Used Date Smoking Tobacco: Never Smokeless Tobacco: Never Alcohol Use Standard Drinks/Week Comments No 0 (1 standard drink = 0.6 oz pur e alcohol) Social Connections Answer Date Recorded Social Connections and Isolation 0 12/23/2020 Financial Resource Strain Answer Date R ecorded Financial Resource Strain 0 2020 Stress Answer Date Recorded Stress 0 12/23/2020 Physical Activity Answer Date Recorded Physical Activity 0 12/23/2020 Food Insecurity Answer Date Recorded Food 0 12/23/2020 Transportation Needs Answer Date Record ed Transportation 0 12/23/2020 Housing Stability Answer Date Recorded Housing 0 12/23/2020 Safety and Environment Answer Date Hai rded Safety 0 12/23/2020 Utilities Answer Date Recorded Utilities 0 12/23/2020 Employment Answer Date Recorded Employment 0 12/23/2020 Comments No Sex and Gender Information Value Date Recorded Sex Assigned at Not on file Legal Sex Female 10:53 AM PST Gender Identity Not on file Sexual Orientation Not on file Last Filed Vital Signs Vital Sign Reading Time Taken Comments Blood Pressure 156/70 03/22/2016 1:13 PM EDT Pulse 76 03/22/2016 1:13 PM EDT Temperature 36.9 ??C (98.5 ??F) 03/14/2016 1:36 PM ED T Respiratory Rate 16 03/22/2016 1:13 PM EDT Oxygen Saturation - - Inhaled Oxygen Concentration - - Weight 123.8 kg (273 lb) 03/26/2016 10:34 AM EDT Height 157.5 cm (5' 2 ) 03/26/2016 10:34 AM EDT Body Mass Index 49.93 03/26/2016 10:34 AM EDT Plan of Treatment Not on file Insurance [facility] [email or web address] PLAN Member Subscriber Plan / Payer (Ef fective 2016-Present) Name:Lara Sanz Relation to Subscriber:Self Name:Lara Sanz Payer ID:[id number] Group ID:[id number] Type:Medicaid Address: [facility] [address] [place] [address] Care Teams Bullet Maker Relationship Specialty Start Date End Date Arti King FNP [address] [place] [address] PCP - General Family Medicine, [employer]ATION ATTENDANT 12/26/15
--- OUTSIDE RECORDS SUMMARY | 2024-12-28 10:45 | XMS_ITS | Encounter Summary ---
Author Organization [facility] Address [address] [place] [address] Care Team Providers Care Internetworking Technician Name Role Phone Tatyana Guzman MD Primary Care Provider [phone] Reason for Visit * Imaging (Routine) - Pending Review Specialty Diagnoses / Procedures Referred By Anoop rutledge Referred To Contact Radiology Diagnoses Encounter for screening mammogram for malignant neoplasm of breast Procedures MG Mammo Digital Diagnostic w David bilat MG Mammo Digital Diagnostic bilat Tatyana Guzman MD [address] [place] [address] Phone: tel: fax: [facility] Referral ID Status Reason Start Date Expiration Date V isits Requested Visits Authorized [id number] Pending Review 08/22/2024 08/22/2025 1 1 Encounter Details Date Type Department Care Team (Latest Contact Info) Description 12/11/2024 10:28 AM EST - 12/11/2024 11:59 PM EST Hospital [facility] [address] [address] Encounter for screening mammogram for malignant neoplasm of breast Discharge Disposition: Home or Self Care Social History Tobacco Use Types Packs/Day Years Used Date Smoking Tobacco: Never Smokeless Tobacco: Never Alcohol Use Standard Drinks/Week Comments Not Currently 0 (1 standard drink = 0.6 oz pur e alcohol) Comments No Sex and Gender Information Value Date Recorded Sex Assigned at Not on file Legal Sex Female 10:04 AM EST Gender Identity Not on file Sexual Orientation Not on file documented as of this encounter Last Filed Vital Signs Vital Sign Reading Time Taken Comments Blood Pressure - - Pulse - - Temperature - - Respiratory Rate - - Oxygen Saturation - - Inhaled Oxygen Concentration - - Weight 99.8 kg (220 lb) 12/11/2024 10:43 AM EST Height 157.5 cm (5' 2 ) 12/11/2024 10:43 AM EST Body Mass Index 40.24 12/11/2024 10:43 AM EST documented in this encounter Medications at Time of Discharge atorvastatin (LIPITOR) 20 mg tablet 09/11/2022 dapagliflozin propanediol (Farxiga) 10 mg tablet Take by mouth daily. exemestane (AROMASIN) 25 mg tablet Take 1 tablet (25 mg total) by mouth 1 (one) time each day 30 tablet 2 12/17/2024 gabapentin (NEURONTIN) 400 mg capsule Take 1 capsule (400 mg total) by mouth 3 (three) times a day. 08/25/2022 glipiZIDE (GLUCOTROL) 5 mg tablet - Route: Take 1 tablet (5 mg total) by mouth 2 (two) times a day before breakfast and dinner. - Oral levothyroxine sodium (TIROSINT) 125 mcg capsule Take 88 mcg by mouth. 02/15/2022 losartan (COZAAR) 50 mg tablet Take 1 tablet (50 mg total) by mouth 1 (one) time each day. metFORMIN (GLUCOPHAGE) 1,000 mg tablet Take 1 tablet (1,000 mg total) by mouth 2 (two) times a day. 05/28/2022 semaglutide (Ozempic) 0.25 mg or 0.5 mg(2 mg/1.5 mL) injection pen Inject under the skin. exemestane (AROMASIN) 25 mg tablet TAKE 1 TABLET(25 MG) BY MOUTH DAILY 02/27/2024 5 documented as of this encounter Discharge Disposition Disposition Code Departure Means Destination Home or Self Care documented in this encounter Plan of Treatment Upcoming Encounters Date Type Department Care Team (Late st Contact Info) Description 01/15/2025 10:45 AM EDT Office Visit [facility] Hematology Oncology [address] [place] [address] Festus Avila MD [address] [place] [address] 02/17/2025 3:30 PM EDT [facility] Visit [facility] [address] [place] [phone] Lorena Rehman MD [address] [place] [address] 12/13/2025 11:00 AM EST [facility]ointment [facility] [address] [place] [phone] documented as of this encounter Procedures Procedure Name Priority Date/Time Associated Diagnosis Comments MG MAMMO DIGITAL DIAGNOSTIC W DAVID BILAT Routine 12/11/2024 11:07 AM EST Encounter for screening mammogram for malignant neoplasm of breast documented in this encounter Results * MG Mammo Digital Diagnostic w [...] year. Mammo Location: [facility], [address], [place], [place], [address], . -------- FINAL REPORT -------- Dictated By: Arti Barrios Dictated Date: 12/11/2024 11:02 ET Assigned Physician: Arti Barrios Reviewed and Electronically Signed By: Arti Barrios Signed Date: 12/11/2024 11:06 ET Workstation ID: [id number] Transcribed By: Self Edit Transcribed Date: 12/11/2024 [...] year. Mammo Location: [facility], [address] [place] [address], [address], . -------- FINAL REPORT -------- Dictated By: Arti Barrios Dictated Date: 12/11/2024 11:02 ET Assigned Physician: Arti Barrios Reviewed and Electronically Signed By: Arti Barrios Signed Date: 12/11/2024 11:06 ET Workstation ID: [id number] Transcribed By: Self Edit Transcribed Date: 12/11/2024 11:02 ET us Tatyana Guzman MD IMG BI PROCEDURES Final Result documented in this encounter Visit Diagnoses Diagnosis Encounter for screening mammogram for malignant neoplasm of breast Encounter for screening mammogram for breast cancer documented in this encounter Care Teams Internetworking Technician Relationship Specialty Start Date End Date Tatyana Guzman MD PCP - General 10/15/23 documented as of this encounter
[2024-12-28 13:48] LABS: MANUAL DIFF FLAG NO
[2024-12-28 14:00] LABS: Basophils Percent Auto 0.3 % (0-2); Eosinophils Absolute Auto 0.2 X10*3/uL (0.0-0.4); Eosinophils Percent Auto 3.2 % (0-4); Hematocrit 40.3 % (37.0-47.0); Hemoglobin 12.9 g/dl (12.0-16.0); Imm Gran Abs Auto 0.03 X10*3/uL (0.00-0.03); Imm Gran Pct Auto 0.5 % (0.0-0.4); Lymphocytes Absolute Auto 1.2 X10*3/uL (1.2-4.9); Lymphocytes Percent Auto 17.3 % (20-40); Mean Corpuscular Hemoglobin 27.6 pg (27.0-33.0); Mean Corpuscular Volume 86.1 fL (80.0-98.0); Mean Platelet Volume 11.4 fL (9.4-12.3); Monocytes Absolute Auto 0.4 X10*3/uL (0.1-1.2); Monocytes Percent Auto 5.3 % (2-11); Neutrophils Absolute Auto 4.9 x10*3/uL (2.0-8.3); Neutrophils Percent Auto 73.4 % (45-73); Platelet Count 275 X10*3/uL (160-400); Red Blood Count 4.68 X10*6/uL (4.20-5.50); Red Cell Distribution Width 14.6 % (11.0-16.0); White Blood Count 6.6 X10*3/uL (4.8-10.8)
[2024-12-28 14:01] LABS: Estimated Average Glucose 120 mg/dL; Hemoglobin A1C 137.3571 umol/L; Hemoglobin A1c % 5.8 % (<6.0); Total Hemoglobin (HGBA1C) 3407.4864 umol/L
[2024-12-28 14:20] LABS: Alanine Aminotransferase 18 U/L (0-31); Albumin Level 4.3 g/dL (3.5-5.0); Alkaline Phosphatase 75 U/L (39-117); Anion Gap 13 (12-20); Aspartate Amino Transferase 26 U/L (5-31); Bilirubin Total 0.6 mg/dL (0.0-1.0); Blood Urea Nitrogen 22 mg/dL (9-16); Calcium 9.8 mg/dL (8.4-10.2); Carbon Dioxide 26 mmol/L (22-29); Chloride 109 mmol/L (96-108); Cholesterol 113 mg/dL (<200); Estimated Glomerular Filt Rate 48; Glucose Fasting 98 mg/dL (60-99); HDL Cholesterol 31 mg/dL (>40); LDL Cholesterol Calculated 66 mg/dL (<100); Sodium 143 mmol/L (135-145); Total Protein 7.6 g/dL (6.5-8.0); Triglycerides 80 mg/dL (<150)
[2024-12-28 14:25] LABS: TSH reflex Free T4 2.49 uIU/mL (0.32-4.0)
[2024-12-28 14:31] LABS: Creatinine Urine 265.83 mg/dL; Microalbum/Creatinine Ratio Ur 39.8 ug/mg cr (<30)
== END 2024-12-28 09:48 | disposition home or self-care (01) ==
LOC: HO.HMGCLDS 09:47
PROVIDERS: PCP Internal Medicine; Visit Provider Internal Medicine
DX: E11.22 Type 2 diabetes mellitus with diabetic chronic kidney disease (principal)
CPT/HCPCS: 36415; 80053; 80061; 82043; 82570; 83036; 84443; 85025

== ENCOUNTER 2025-01-04 09:49 | Outpatient (AMB) | payer MEDICARE, MEDICAID, SELFPAY ==
[2025-01-04 09:54] VITALS: BP 120/66; PULSE 85; RESP 20; TEMP 36.6; O2SAT 99; BMI 39.3
--- NOTE | 2025-01-04 09:54 | MHC.PC.OV ---
Vital Signs 01/04/25 09:54 Height 5 ft 2 in Weight 215 lb BMI 39.3 BP 120/66 Blood Pressure Location Lt brachial Position Sitting Respiration 20 Pulse 85 Pulse Source Pulse Oximeter Temp 97.9 F Temp Source Oral Pulse Oximetry (%) 99 Oxygen Delivery Method Room Air Intake Visit Reasons: 3m follow up Intake Note: Pt is here today for 3 months follow up visit. Pt states that she has a lump on her L wrist and she has been having pain. Allergies albuteral Adverse Reaction (Uncoded 01/04/25 09:56) low oxygen gluten Adverse Reaction (Uncoded 01/04/25 09:56) upset stomach latex Adverse Reaction (Uncoded 01/04/25 09:56) rash Medication List - Last Reconciled 01/04/25 by Tatyana Guzman MD atorvastatin (Lipitor) 20 mg PO DAILY blood sugar diagnostic As directed blood sugar diagnostic (OneTouch Verio test strips) 1 TID blood-glucose sensor (GaopengStyle Tim 3 Sensor device) As directed exemestane 25 mg PO DAILY Farxiga (dapagliflozin propanediol) 10 mg PO DAILY NS gabapentin 400 mg PO TID lancets (OneTouch Delica Plus Lancet) As directed levothyroxine 88 mcg PO DAILY losartan 50 mg PO DAILY magnesium glycinate 200 mg orally at bedtime daily; 30 days melatonin 3 mg PO BEDTIME PRN 30 days metformin 1,000 mg PO BID Ozempic (semaglutide) 2 mg (0.75 mL) subcut QWEEK NS Tobacco use date assessed: 01/04/25 Dental Screening Dental Screen Date: 01/04/25 Did you have a dental visit in the last 12 months?: No Did you have a dental problem in the last 6 months where you did not have access to dental care?: Yes Was dental information given to patient?: Yes HPI 3m follow up HPI Details Pt presents for f/u DM 2, HTN, hyperlipid, hypothyroid, stable on meds. Patient lost 15 lb on Ozempic and has been tolerating medication well. PFSH Medical History Sleep apnea JONAH (obstructive sleep apnea) Surgical History Hx of tubal ligation H/O foot surgery Family History Father CAD (coronary artery disease), Onset Age: 70 Substance use disorder Mother COPD (chronic obstructive pulmonary disease) Social History Household Members Other:: , 3 children, on disability Housing: House Patient Tobacco Use Status: Never used Tobacco e-Cigarette/Vaping Use: Never Used service: No Current occupational status: unemployed Cognitive needs: No Hearing needs: No Vision needs: Yes Questionnaire PHQ-9 Over the last 2 weeks, how often have you been bothered by any of the following problems? 1. Little interest or pleasure in doing things: not at all 2. Feeling down, depressed, or hopeless: several days 3. Trouble falling or staying asleep, or sleeping too much: several days 4. Feeling tired or having little energy: several days 5. Poor appetite or overeating: several days 6. Feeling bad about yourself - or that you are a failure or have let yourself or your family down: not at all 7. Trouble concentrating on things, such as reading the newspaper or watching television: not at all 8. Moving or speaking so slowly that other people could have noticed. Or the opposite - being so fidgety or restless that you have been moving around a lot more than usual: not at all 9. Thoughts that you would be better off or of hurting yourself in some way: not at all Total score: 4 Depression Screening Interpretation: Negative Depression Screening Done: Yes 69078 - PHQ-9 Billing: Yes Source: Developed by Drs. Kory Matson, Christel Gill, Jose Elizabeth and colleagues, with an educational layne from [employer]. Thrive Questionnaire Date Thrive assessed: 01/04/25 I am a: Patient What is your living situation today?: I have a steady place to live Within the past 12 months, did the food you bought not last and you didn't have the money to get more?: Sometimes True Within the past 12 months, did you worry whether your food would run out before you got money to buy more?: Sometimes True Do you have trouble paying for medicines?: No Do you have trouble getting transportation to medical appointments?: No Do you have trouble paying your heating and electricity bill?: I choose not to answer this question Do you have trouble taking care of your child, family member or friend?: No Do you have trouble with day-to-day activities such as bathing, preparing meals, shopping, managing finances, etc.?: No Are you currently unemployed and looking for a job?: No Are you interested in more education?: No Please select the resources that you would like help with: None Currently or been in a relationship where the following occur: No concerns reported THRIVE Score: 2 AUDIT C Alcohol Use Questionnaire (AUDIT-C) 1. How often do you have a drink containing alcohol?: Monthly or less 2. How many drinks containing alcohol do you have on a typical day when you are drinking?: 1 or 2 3. How often do you have six or more drinks on one occasion?: Less than monthly Total Score: 2 CATHY-7 AMB Questionnaire CATHY-7 Date CATHY - 7 assessed: 01/04/25 Feeling nervous, anxious, or on edge: 0 = Not at all Not being able to stop or control worryin = Several days Worrying too much about different things: 1 = Several days Trouble relaxin = Not at all Being so restless that it is hard to sit still: 0 = Not at all Becoming easily annoyed or irritable: 1 = Several days Feeling afraid as if something awful might happen: 0 = Not at all Total CATHY-7 score (0-4 normal; 5-9 mild; 10-14 moderate; 15-21 severe): 3 Source: Developed by Drs. Kory Matson, Christel Gill, Jose Elizabeth and colleagues, with an educational layne from [employer]. CATHY-7 Assessment Billing CATHY-7 Assessment Tool: CATHY-7 Assessment 04806 Review of Systems Const All systems reviewed & are unremarkable except as noted in HPI and below Eyes Reports no additional complaints ENT Reports no additional complaints Card Reports no additional complaints Resp Reports no additional complaints GI Reports no additional complaints Reports no additional complaints Musc Reports no additional complaints Physical exam (Primary Care) Vital Signs: Last Vital Signs Temp 97.9 F 01/04/25 09:54 Pulse 85 01/04/25 09:54 Resp 20 01/04/25 09:54 BP 120/66 01/04/25 09:54 Pulse Ox 99 01/04/25 09:54 Oxygen Delivery Method Room Air 01/04/25 09:54 BMI result Body Mass Index 39.3 Tobacco/Smoking Status: Tobacco use Status Tobacco use date assessed 01/04/25 01/04/25 10:00 Patient Tobacco Use Status Never used Tobacco 01/04/25 10:00 e-Cigarette/Vaping Use Never Used 01/04/25 09:54 PHQ-9: PHQ-9 Score PHQ-9: Total score 4 01/04/25 10:00 Depression Screening Interpretation: Negative Thrive Assessment: Date of Thrive Assessment Date Thrive assessed 01/04/25 01/04/25 10:00 Currently or been in a relationship where the following occur: No concerns reported Const General: no acute distress HENMT Head: Yes normal to inspection General nose exam: Normal external nose present Throat: Yes posterior oropharynx normal Eyes General: appearance normal, both eyes and all related structures Neck Neck: Yes supple Resp Effort & Inspection: normal respiratory effort Auscultation: clear to auscultation bilaterally Cardio Rhythm: regular rhythm Heart sounds: S1 normal heart sound present and S2 normal heart sound present GI Inspection: Yes normal to inspection Palpation (GI): Soft to palpation Coding Level of Care Code Est Pt Level 4 (76233) Diagnoses DM type 2 (diabetes mellitus, type 2) E11.9 Diabetes mellitus detention insulin use: without terminal superintendent use HTN (hypertension) I10 Hyperlipidemia E78.5 Obesity, Class III, BMI 40-49.9 (morbid obesity) E66.01 CKD stage 3 due to type 2 diabetes mellitus E11.22; N18.30 Additional Codes CATHY-7 Assessment Billing - CATHY-7 Assessment Tool: CATHY-7 Assessment 65373 ([id number]) PHQ-9 - 99067 - PHQ-9 Billing: Yes ([id number]) Assessment & Plan Assessment & Plan (1) DM type 2 (diabetes mellitus, type 2): Code(s): E11.9 - Type 2 diabetes mellitus without complications Category: Medical Qualifiers: Diabetes mellitus detention insulin use: without detention use Plan: A1c is 5.8, continue current medications ADA diet increase physical activity weight loss discussed. Return in 4 months with a fasting labs before (2) HTN (hypertension): Code(s): I10 - Essential (primary) hypertension Category: Medical Plan: Continue current medications (3) Hyperlipidemia: Code(s): E78.5 - Hyperlipidemia, unspecified Category: Medical Plan: Continue statin (4) Obesity, Class III, BMI 40-49.9 (morbid obesity): Code(s): E66.01 - Morbid (severe) obesity due to excess calories Category: Medical Plan: Decrease caloric intake increase physical activity discussed with the patient continue Ozempic (5) CKD stage 3 due to type 2 diabetes mellitus: Code(s): E11.22 - Type 2 diabetes mellitus with diabetic chronic kidney disease; N18.30 - Chronic kidney disease, stage 3 unspecified Category: Medical Plan: Monitor renal function avoid nephrotoxins Orders: Orders Comprehensive [place]. Panel Fast 4 Months E11.22 - Type 2 diabetes mellitus with diabetic chronic kidney disease, E11.9 - Type 2 diabetes mellitus without complications, E66.01 - Morbid (severe) obesity due to excess calories, E78.5 - Hyperlipidemia, unspecified, I10 - Essential (primary) hypertension, N18.30 - Chronic kidney disease, stage 3 unspecified Hemoglobin A1c 4 Months E11.22 - Type 2 diabetes mellitus with diabetic chronic kidney disease, E11.9 - Type 2 diabetes mellitus without complications, E66.01 - Morbid (severe) obesity due to excess calories, E78.5 - Hyperlipidemia, unspecified, I10 - Essential (primary) hypertension, N18.30 - Chronic kidney disease, stage 3 unspecified Microalbumin, Random (w Creat) 4 Months E11.22 - Type 2 diabetes mellitus with diabetic chronic kidney disease, E11.9 - Type 2 diabetes mellitus without complications, E66.01 - Morbid (severe) obesity due to excess calories, E78.5 - Hyperlipidemia, unspecified, I10 - Essential (primary) hypertension, N18.30 - Chronic kidney disease, stage 3 unspecified
--- OUTSIDE RECORDS SUMMARY | 2025-01-04 11:00 | XMS_ITS | Clinical Summary ---
Author Organization [facility] Address [address] [place], [place] [id number] Care Team Providers Care Security Systems Installer Name Role Phone Tatyana Guzman MD Primary Care Provider [phone] Allergies Active Allergy Reactions Criticality Noted Date Comments Albuterol 02/20/2013 Other reaction(s): Latex, SOB, Wheezing Per [place] notes Per Timmy notes Gluten 09/01/2010 Other reaction(s): OTHER Throat tightens/tickles Latex 03/17/2009 Other reaction(s): itch Other reaction(s): itch Lisinopril High 09/09/2014 Other reaction(s): Rash/Dermatitis Per [place] notes Medications Medication Sig Dispensed Refills Start [...] age to complete this topic Care Teams Security Systems Installer Relationship Specialty Start Date End Date Tatyana Guzman MD [address] [place] [address] PCP - General Industrial Therapist 10/15/23
--- OUTSIDE RECORDS SUMMARY | 2025-01-04 11:01 | XMS_ITS | Clinical Summary ---
Author Organization [facility] Address [address] [place] [address] Phone Care Team Providers Care Prosecuting Attorney Name Role Phone Tatyana Guzman MD Primary Care Provider [phone] Allergies Active Allergy Reactions Criticality Noted Date Comments Albuterol 02/20/2013 Other reaction(s): Latex, SOB, Wheezing Per [place] notes Per [place] notes Gluten 09/01/2010 Other reaction(s): OTHER Throat tightens/tickles Latex 03/17/2009 Other reaction(s): itch Other reaction(s): itch Lisinopril High 09/09/2014 Other reaction(s): Rash/Dermatitis Per [place] notes Medications atorvastatin (LIPITOR) 20 mg tablet [...] EST Hospital [facility] [address] [address] Encounter for screening mammogram for [...] Description 01/15/2025 10:45 AM EDT Office Visit [facility] [address] [place] [phone] Festus Avila MD [address] [place] [address] 02/17/2025 3:30 PM EDT Office Visit [facility] [address] [facility] [address] [place] [phone] Lorena Rehman MD 175 [facility] [address] [place] [address] 12/13/2025 11:00 AM EST Appointment [facility] [address] [phone] Health Maintenance Due Date Last Done Comments [...] year. Mammo Location: [facility], [address] [place] [address], [address], . -------- FINAL REPORT -------- Dictated By: Arti Barrios Dictated Date: 12/11/2024 11:02 ET Assigned Physician: Arti Barrios Reviewed and Electronically Signed By: Arti Barrios Signed Date: 12/11/2024 11:06 ET Workstation ID: [id number] Transcribed By: Self Edit Transcribed Date: 12/11/2024 [...] year. Mammo Location: [facility], [address] [place] [address], [address], . -------- FINAL REPORT -------- Dictated By: Arti Barrios Dictated Date: 12/11/2024 11:02 ET Assigned Physician: Arti Barrios Reviewed and Electronically Signed By: Arti Barrios Signed Date: 12/11/2024 11:06 ET Workstation ID: [id number] Transcribed By: Self Edit Transcribed Date: 12/11/2024 11:02 ET Tatyana Guzman MD IMG BI PROCEDURES Final Result from Last 3 Months Insurance MEDICAID - [place] [id number] Care Teams Prosecuting Attorney Relationship Specialty Start Date End Date Tatyana Guzman MD PCP - General 10/15/23
--- OUTSIDE RECORDS SUMMARY | 2025-01-04 11:01 | XMS_ITS | Clinical Summary ---
Author Organization [facility] Facility Address [address] [place] [address], [place] [address] Care Team Providers Care Sales Operations Consultant Name Role Phone Bonnie Westfall MD Primary Care Provider [phone] Social History Tobacco Use Types Packs/Day Years [...] [place] Care Teams Sales Operations Consultant Relationship Specialty Start Date End Date Bonnie Westfall MD [address] [place] [phone] PCP - General Internal Medicine 08/08/22
--- OUTSIDE RECORDS SUMMARY | 2025-01-04 11:01 | XMS_ITS | Encounter Summary ---
Author Organization [facility] Address [address] [place] [address] Care Team Providers Care Humid System Operator Name Role Phone Tatyana Guzman MD Primary Care Provider Reason for Visit * Imaging (Routine) - Pending Review Specialty Diagnoses / Procedures Referred By Anoop rutledge Referred To Contact Radiology Diagnoses Encounter for screening mammogram for malignant neoplasm of breast Procedures [facility] Digital Diagnostic w David bilat [facility] Digital Diagnostic bilat Tatyana Guzman MD [address] [place] [address] Phone: tel: fax: [facility] Referral ID Status Reason Start Date Expiration Date V isits Requested Visits Authorized [id number] Pending Review 08/22/2024 08/22/2025 1 1 Encounter Details Date Type Department Care Team (Latest Contact Info) Description 12/11/2024 10:28 AM EST - 12/11/2024 11:59 PM EST Hospital [facility] [address] [phone] Encounter for screening mammogram for [...] Description 01/15/2025 10:45 AM EDT Office Visit [facility] Hematology Oncology [address] [place] [address] Festus Avila MD [address] [place] [address] 02/17/2025 3:30 PM EDT Office Visit [facility] [address] [facility] [address] [place] [phone] Lorena Rehman MD [address] [facility] [address] [place] [address] 12/13/2025 11:00 AM EST Appointment [facility] [address] [place] [phone] documented as of this encounter Procedures Procedure [...] year. Mammo Location: [facility], [address] [facility], [place], [place], [address], . -------- FINAL REPORT -------- Dictated By: Arti Barrios Dictated Date: 12/11/2024 11:02 ET Assigned Physician: Arti Barrios Reviewed and Electronically Signed By: Arti Barrios Signed Date: 12/11/2024 11:06 ET Workstation ID: [id number] Transcribed By: Self Edit Transcribed Date: 12/11/2024 [...] year. Mammo Location: [facility], [address] [place] [address], [address], . -------- FINAL REPORT -------- Dictated By: Arti Barrios Dictated Date: 12/11/2024 11:02 ET Assigned Physician: Arti Barrios Reviewed and Electronically Signed By: Arti Barrios Signed Date: 12/11/2024 11:06 ET Workstation ID: [id number] Transcribed By: Self Edit Transcribed Date: 12/11/2024 11:02 ET us Tatyana Guzman MD IMG BI PROCEDURES Final Result documented in this encounter Visit Diagnoses Diagnosis Encounter for screening mammogram for malignant neoplasm of breast Encounter for screening mammogram for breast cancer documented in this encounter Care Teams Humid System Operator Relationship Specialty Start Date End Date Tatyana Guzman MD PCP - General 10/15/23 documented as of this encounter
== END 2025-01-04 10:27 | disposition home or self-care (01) ==
PROVIDERS: PCP Internal Medicine; Visit Provider Internal Medicine
DX: I12.9 Hypertensive chronic kidney disease with stage 1 through stage 4 chronic kidney disease, or unspecified chronic kidney disease (principal); E11.22 Type 2 diabetes mellitus with diabetic chronic kidney disease; E66.01 Morbid (severe) obesity due to excess calories; N18.30 Chronic kidney disease, stage 3 unspecified; Z68.39 Body mass index [BMI] 39.0-39.9, adult; E78.5 Hyperlipidemia, unspecified

== ENCOUNTER → 2025-01-04 09:49 | Outpatient (BNVA) | payer MEDICARE, MEDICAID, SELFPAY | PROVIDERS: PCP Internal Medicine; Visit Provider Internal Medicine | DX: E78.5 Hyperlipidemia, unspecified (principal); I12.9 Hypertensive chronic kidney disease with stage 1 through stage 4 chronic kidney disease, or unspecified chronic kidney disease; E11.22 Type 2 diabetes mellitus with diabetic chronic kidney disease; N18.30 Chronic kidney disease, stage 3 unspecified; E66.01 Morbid (severe) obesity due to excess calories; Z68.39 Body mass index [BMI] 39.0-39.9, adult; Z71.3 Dietary counseling and surveillance | CPT/HCPCS: 96127; 99212 ==

== ENCOUNTER 2025-02-12 10:26 | Outpatient (AMB) | payer MEDICARE, MEDICAID, SELFPAY ==
[2025-02-12 10:35] VITALS: BP 130/70; PULSE 81; O2SAT 98; BMI 40.2
--- NOTE | 2025-02-12 10:35 | MHC.OFFVIS ---
Vital Signs 02/12/25 10:35 Height 5 ft 2 in Weight 220 lb BMI 40.2 BP 130/70 Blood Pressure Location Lt brachial Position Sitting Pulse 81 Pulse Source Pulse Oximeter Pulse Oximetry (%) 98 Oxygen Delivery Method Room Air Intake Visit Reasons: Follow Up Intake Note: patient following up has appt. with ENT 03/28 Frame Table Operator Helper Required: No Accompanied by: Self / Same As Patient Allergies albuteral Adverse Reaction (Uncoded 02/12/25 10:38) low oxygen gluten Adverse Reaction (Uncoded 02/12/25 10:38) upset stomach latex Adverse Reaction (Uncoded 02/12/25 10:38) rash HPI Comments Details: 65-yr-old female presents for follow-up visit of sleep difficulties Pt denies any significant interval medical history changes. Other than starting Ozempic earlier this year, has not noticed any weight loss yet. Pt is scheduled for ENT consult in March- for snoring evaluation. She does continue to snore. She continues to have variable sleep quality. She notes that she tends to eat and sleep better when she is helping care for her grandkids. When there, she will sit down and eat 3 meals a day, has a more structured wake up and bedtime. However, when she is at home she does not have the same structure, may forget to take them refills or the breakfast. She is prone to eat 1 larger size meal per day, which she knows is overall not as good for her. Notes that when she eats larger amounts carbohydrates, she is prone to fall asleep shortly after eating. She states she thinks she has gained weight since last visit, but she found gluten free cinnabons, which is a nice treat. Is hoping to start walking more now that the weather is getting warmer. Previous home sleep study did not show sleep apnea, however did show significant snoring. She denies usual nasal congestion/allergies, but can wake up with a stuffy nose. She does have a slight overbite. [facility] Medical History Sleep apnea JONAH (obstructive sleep apnea) Surgical History Hx of tubal ligation H/O foot surgery Family History Father CAD (coronary artery disease), Onset Age: 70 Substance use disorder Mother COPD (chronic obstructive pulmonary disease) Social History Household Members Other:: , 3 children, on disability Housing: House Patient Tobacco Use Status: Never used Tobacco e-Cigarette/Vaping Use: Never Used service: No Current occupational status: unemployed Cognitive needs: No Hearing needs: No Vision needs: Yes Physical Exam Vital Signs: Last Vital Signs Pulse 81 02/12/25 10:35 BP 130/70 02/12/25 10:35 Pulse Ox 98 02/12/25 10:35 Oxygen Delivery Method Room Air 02/12/25 10:35 BMI result Body Mass Index 40.2 Const General: no acute distress Orientation/consciousness: patient oriented x3 Resp Effort & Inspection: normal respiratory effort and able to speak in complete sentences Neuro General: patient oriented x3 Psych Mental Status: mental status grossly normal Speech and movement: Clear speech present Attitude: cooperative Assessment & Plan Assessment & Plan (1) Snoring: Code(s): R06.83 - Snoring Category: Medical (2) Daytime sleepiness: Code(s): R40.0 - Somnolence Category: Medical (3) Obesity: Code(s): E66.9 - Obesity, unspecified Category: Medical Plan Previous HST- no evidence of sleep apnea w/ AHI 1.6/hr and O2 damian 88% w/ average SpO2 96%, and percentage of snoring 40%. Avoid sleeping on her back- pt states she does not. Discussed dietary strategies to optimize weight loss in setting of using Ozempic- such as eating 3 smaller meals per day eaten at consistent times, introducing whole grain such as quinoa or brown rice (possibly mixing these with white rice to help her integrate these type of food into her diet), whole nuts, fruits/vegetables. Continue Oz me in hisempic. OTC treatments for snoring- breathe right strips, oral appliance, chin strap, saline sprays, prn anithistamine nasal sprays- such as OTC azelastine. ENT consult as scheduled. Increase regular physical activity- may benefit from trying water aerobics classes. Pt to follow-up in 6 months or sooner prn. Coding Level of Care Code Est Pt Level 3 (36503) Diagnoses Snoring R06.83 Daytime sleepiness R40.0 Obesity E66.9
--- OUTSIDE RECORDS SUMMARY | 2025-02-12 11:14 | XMS_ITS | Clinical Summary ---
Author Organization [facility] Address [address] [place], [place] [id number] Care Team Providers Care Arabic Professor Name Role Phone Tatyana Guzman MD Primary Care Provider [phone] Allergies Active Allergy Reactions Criticality Noted Date Comments Albuterol 02/20/2013 Other reaction(s): Latex, SOB, Wheezing Per [place] notes Per [place] notes Gluten 09/01/2010 Other reaction(s): OTHER Throat tightens/tickles Latex 03/17/2009 Other reaction(s): itch Other reaction(s): itch Lisinopril High 09/09/2014 Other reaction(s): Rash/Dermatitis Per [place] notes Medications Medication Sig Dispensed Refills Start [...] age to complete this topic Care Teams Arabic Professor Relationship Specialty Start Date End Date Tatyana Guzman MD [address] [place] [address] PCP - General Corporate Administrator 10/15/23
--- OUTSIDE RECORDS SUMMARY | 2025-02-12 11:14 | XMS_ITS | Clinical Summary ---
Author Organization [facility] Address [address] [place] [address] Phone Care Team Providers Care Safety And Security Manager Name Role Phone Tatyana Guzman MD Primary Care Provider [phone] Allergies Active Allergy Reactions Criticality Noted Date Comments Albuterol 02/20/2013 Other reaction(s): Latex, SOB, Wheezing Per [facility] notes Per [facility] notes Gluten 09/01/2010 Other reaction(s): OTHER Throat tightens/tickles Latex 03/17/2009 Other reaction(s): itch Other reaction(s): itch Lisinopril High 09/09/2014 Other reaction(s): Rash/Dermatitis Per [facility] notes Medications atorvastatin (LIPITOR) 20 mg tablet 2 Active dapagliflozin propanediol (Farxiga) 10 mg tablet Take by mouth daily. Active gabapentin (NEURONTIN) 400 mg capsule Take 1 capsule (400 mg total) by mouth 3 (three) times a day. 2 Active levothyroxine sodium (TIROSINT) 125 mcg capsule Take 88 mcg by mouth. 2 Active losartan (COZAAR) 50 mg tablet Take 1 tablet (50 mg total) by mouth 1 (one) time each day. Active metFORMIN (GLUCOPHAGE) 1,000 mg tablet Take 1 tablet (1,000 mg total) by mouth 2 (two) times a day. 2 Active semaglutide (Ozempic) 0.25 mg or 0.5 [...] (one) time each day 30 tablet 2 03/17/20 25 Active Encounters Date Type Department Care Team Description 01/23/2025 10:08 AM EDT - 01/23/2025 11:59 PM EDT Hospital Encounter [facility] MRI [address] [place] [address] Invasive lobular carcinoma of breast, stage 2, right (CMS/HCC V24, CMS/[facility] V28) Discharge Disposition: Home or Self Care 01/19/2025 Telephone [facility] Hematology Oncology [address] [place] [phone] Heidi Baig MA Order for MRI correction 01/15/2025 10:45 AM EDT Office Visit [facility] Hematology Oncology [address] [place] [phone] Festus Avila MD Invasive lobular carcinoma of breast, stage 2, right (CMS/HCC V24, CMS/[facility] V28) (Primary Dx); Intractable episodic headache, unspecified headache type 12/11/2024 10:28 AM EST - 12/11/2024 11:59 PM EST [facility] [address] [address] Encounter for screening mammogram for malignant neoplasm of breast Discharge Disposition: Home or Self Care from Last 3 Months Surgical History Surgery Date Site/Laterality Comments BREAST BIOPSY 11/04/2021 - 11/03/2022 Right BREAST BIOPSY 11/04/1992 - 11/03/1993 Left BENIGN BREAST LUMPECTOMY 11/04/2021 - 11/03/2022 Right Medical History Medical History Date Comments Breast cancer (CMS/HCC V24, CMS/HCC V28) 08/2022 Invasive Lobular Carcinoma R ight Breast treated with radiation Family History Medical [...] Sign Reading Time Taken Comments Blood Pressure 151/84 01/15/2025 11:01 AM EDT Pulse 75 01/15/2025 11:01 AM EDT Temperature 35.1 ??C (95.2 ??F) 01/15/2025 11:01 AM E DT Respiratory Rate - - Oxygen Saturation 99% 01/15/2025 11:01 AM EDT Inhaled Oxygen Concentration - - Weight 97.5 kg (215 lb) 01/15/2025 11:01 AM EDT Height 157.5 cm (5' 2 ) 12/11/2024 10:43 AM EST Body Mass Index 39.32 12/11/2024 10:43 AM EST Plan of Treatment Upcoming Encounters Date Type Department Care Team (Late st Contact Info) Description 02/12/2025 11:45 AM EDT Office Visit [facility] Hematology Oncology [address] [place] [phone] Festus Avila MD [address] [place] [address] 04/14/2025 2:45 PM EDT Office Visit [facility] [address] [facility] [address] [place] [address] Lorena Rehman MD 175 [facility] [address] [place] [address] 12/13/2025 11:00 AM EST [facility]ointment [facility] [address] [phone] Health Maintenance Due Date Last Done Comments COVID-19 Vaccine (#1) 1965 Diabetes: Annual Foot [...] - Risk 3-dose series) 2022 RSV Immunization Adult Patients (1 - Risk 60-74 years 1-dose series) 2022 Cholesterol Screening (Lipid Panel) 10/02/2022 Depression Screening 10/02/2022 HIV Screening 10/02/2022 Hepatitis C Screening 10/02/2022 Medicare Annual Wellness Visit 10/02/2022 Social Influencers of Health Screening 10/02/2022 Diabetes: Annual Urine Albumin-Creatinine Ratio (uACR) 12/11/2024 Diabetes: Blood Sugar Control Test (HGBA1C) 12/11/2024 Influenza Vaccine (Season Ended) 2025 09/05/2021, 09/23/2019, 09/19/2018, Additional history exists Diabetes: Annual GFR (Glomerular Filtration Rate) 01/15/2026 01/15/2025 Hypertension/CHF/CAD Annual BMP Blood Test 01/15/2026 01/15/2025 Colorectal Cancer Screening: FIT-DNA (Cologuard) 05/01/2026 05/01/2023, [...] age to complete this topic Meningococcal B Vaccine Aged Out No l onger eligible based on patient's age to complete this topic RSV Immunization Patients Under 20 months Aged Out No longer eligible based on patient's age to complete this topic Varicella Vaccines Aged Out No longer eligible based on patient's age to complete this topic Procedures Procedure Name Priority Date/Time Associated Diagnosis Comments MR BRAIN WO AND W CONTRAST Routine 01/23/2025 11:44 AM EDT Invasive lobular carcinoma of breast, stage 2, right (CMS/HCC V24, CMS/HCC V28) CBC WITH AUTO DIFFERENTIAL Routine 01/15/2025 11:37 AM EDT Invasive lobular carcinoma of breast, stage 2, right (CMS/HCC V24, CMS/HCC V28) Intractable episodic headache, unspecified headache type CANCER ANTIGEN 27-29 Routine 01/15/2025 11:37 AM EDT Invasive lobular carcinoma of breast, stage 2, right (CMS/HCC V24, CMS/HCC V28) Intractable episodic headache, unspecified headache type COMPREHENSIVE METABOLIC PANEL Routine 01/15/2025 11:37 AM EDT Invasive lobular carcinoma of breast, stage 2, right (CMS/HCC V24, CMS/HCC V28) Intractable episodic headache, unspecified headache type CBC AND DIFFERENTIAL Routine 01/15/2025 11:37 AM EDT Invasive lobular carcinoma of breast, stage 2, right (CMS/HCC V24, CMS/HCC V28) Intractable episodic headache, unspecified headache type MG MAMMO DIGITAL DIAGNOSTIC W DAVID BILAT Routine 12/11/2024 11:07 AM EST Encounter for screening mammogram for malignant neoplasm of breast from Last 3 Months Results * MR Brain wo and w Contrast (01/23/2025 11:44 AM EDT) Anatomical Region Laterality Modality Head and Neck Magnetic Resonan ce 01/25/2025 3:29 PM EDT Impressions 01/25/2025 3:51 PM EDT Normal brain MRI without and with contrast. ??No intracranial metastatic disease. -------- FINAL REPORT -------- Dictated By: VALENTINE MONTILLA Dictated Date: 01/25/2025 15:29 ET Assigned Physician: VALENTINE MONTILLA Reviewed and Electronically Signed By: VALENTINE MONTILLA Signed Date: 01/25/2025 15:51 ET Workstation ID: [id number] Transcribed By: Self Edit Transcribed Date: 01/25/2025 15:29 ET Narrative 01/25/2025 3:51 PM EDT PROCEDURE: Brain MRI INDICATION: Breast cancer staging TECHNIQUE: Multiplanar, multisequence MRI of the brain without and with contrast. ??20 mL Dotarem injected intravenously without complication from a 20 mL vial COMPARISON: ??No priors available. FINDINGS: No acute infarct, mass effect, or intracranial hemorrhage. Brain parenchyma is normal in signal. ??No abnormal intracranial enhancement or susceptibility artifact. Ventricles, sulci, and cisterns are normal in size and configuration. ??No hydrocephalus or volume loss. Sella and foramen magnum are within normal limits. Major intracranial arterial flow voids are normal. ??Major dural venous sinuses enhance normally with contrast. Scattered mucosal thickening seen throughout the sinuses. ??Mastoid air cells are clear. Orbits and extra cranial soft tissues are normal. ??No suspicious marrow replacing lesions seen throughout the calvarium or clivus. Procedure Note Valentine Montilla MD - 01/25/2025 PROCEDURE: Brain MRI INDICATION: Breast cancer staging TECHNIQUE: Multiplanar, multisequence MRI of the brain without and withcontrast. 20 mL Dotarem injected intravenously without complication froma 20 mL vial COMPARISON: No priors available. FINDINGS: No acute infarct, mass effect, or intracranial hemorrhage. Brain parenchyma is normal in signal. No abnormal intracranialenhancement or susceptibility artifact. Ventricles, sulci, and cisterns are normal in size and configuration. Nohydrocephalus or volume loss. Sella and foramen magnum are within normal limits. Major intracranial arterial flow voids are normal. Major dural venoussinuses enhance normally with contrast. Scattered mucosal thickening seen throughout the sinuses. Mastoid aircells are clear. Orbits and extra cranial soft tissues are normal. No suspicious marrowreplacing lesions seen throughout the calvarium or clivus. IMPRESSION: Normal brain MRI without and with contrast. No intracranial metastaticdisease. -------- FINAL REPORT -------- Dictated By: VALENTINE MONTILLA Dictated Date: 01/25/2025 15:29 ET Assigned Physician: VALENTINE MONTILLA Reviewed and Electronically Signed By: VALENTINE MONTILLA Signed Date: 01/25/2025 15:51 ET Workstation ID: [id number] Transcribed By: Self Edit Transcribed Date: 01/25/2025 15:29 ET Festus Avila MD IM MRI PROCEDURES Final Res ult * (ABNORMAL) CBC auto differential (01/15/2025 11:37 AM EDT) WBC 7.7 4.8 - 10.8 K/mcL LAB HEMETOLOGY METHOD 01/15/2025 2:00 PM EDT [facility] RBC 4.50 3.80 - 4.80 M/mcL LAB HEMETOLOGY METHOD 01/15/2025 2:00 PM EDT [facility] Hemoglobin 12.3 11.5 - 16.0 g/dL LAB HEMETOLOGY METHOD 01/15/2025 2:00 PM [facility] Hematocrit 38.9 35.0 - 47.0 % LAB HEMETOLOGY METHOD 01/15/2025 2:00 PM EDT [facility] MCV 87.0 79.0 - 98.0 FL LAB HEMETOLOGY METHOD 01/15/2025 2:00 PM [facility] MCH 27.5 27.0 - 32.0 pcg LAB HEMETOLOGY METHOD 01/15/2025 2:00 PM [facility] MCHC 31.6(L) 32.0 - 37.0 g/dL LAB HEMETOLOGY METHOD 01/15/2025 2:00 PM [facility] RDW 13.9 11.0 - 15.0 % LAB HEMETOLOGY METHOD 01/15/2025 2:00 PM [facility] Platelets 264 130 - 400 K/mcL LAB HEMETOLOGY METHOD 01/15/2025 2:00 PM [facility] MPV 11.4(H) 7.0 - 11.0 FL LAB HEMETOLOGY METHOD 01/15/2025 2:00 PM [facility] NRBC 0.0 <1.0 % LAB HEMETOLOGY METHOD 01/15/2025 2:00 PM [facility] NRBC Absolute 0.00 <0.10 K/mcL LAB HEMETOLOGY METHOD 01/15/2025 2:00 PM [facility] Neutrophils Relative 71.4 % LAB HEMETOLOGY METHOD 01/15/2025 2:00 PM [facility] Lymphocytes Relative 19.2 % LAB HEMETOLOGY METHOD 01/15/2025 2:00 PM [facility] Monocytes Relative 6.4 % LAB HEMETOLOGY METHOD 01/15/2025 2:00 PM [facility] Eosinophils Relative 2.3 % LAB HEMETOLOGY METHOD 01/15/2025 2:00 PM [facility] Basophils Relative 0.3 % LAB HEMETOLOGY METHOD 01/15/2025 2:00 PM [facility] Immature Granulocytes Relative 0.4 % LAB HEMETOLOGY METHOD 01/15/2025 2:00 PM [facility] Neutrophils Absolute 5.50 1.50 - 7.00 K/mcL LAB HEMETOLOGY METHOD 01/15/2025 2:00 PM [facility] Lymphocytes Absolute 1.48 1.00 - 5.00 K/mcL LAB HEMETOLOGY METHOD 01/15/2025 2:00 PM EDT [facility] Monocytes Absolute 0.49 0.20 - 1.00 K/mcL LAB HEMETOLOGY METHOD 01/15/2025 2:00 PM EDT [facility] Eosinophils Absolute 0.18 0.00 - 0.50 K/mcL LAB HEMETOLOGY METHOD 01/15/2025 2:00 PM EDT [facility] Basophils Absolute 0.02 0.00 - 0.20 K/mcL LAB HEMETOLOGY METHOD 01/15/2025 2:00 PM EDT [facility] Immature Granulocytes Absolute 0.03 0.00 - 0.03 K/mcL LAB HEMETOLOGY METHOD 01/15/2025 2:00 PM EDT [facility] Blood Venous blood specimen / Unknown Venipuncture / Unknown 01/15/2025 11:37 AM EDT 01/15/2025 1:35 PM EDT Festus Avila MD LAB BLOOD ORDERABLES Final R esult [facility] [address] [place] [address], * Cancer antigen 27-29 (01/15/2025 11:37 AM EDT) CA 27.29 <17.5 <38.6 U/mL 01/18/2025 12:07 PM EDT [facility] Comment: The Siemens Advia Centaur [id number] Chemiluminescent Immunoassay is used. Results obtained with different assay methods or kits cannot be used interchangeably. Results cannot be interpreted as absolute evidence of the presence or absence of malignant disease. Test performed at [facility], [address] , [place], [place] ??[address] ? [phone] Sandra Lee MD, PhD - Pony Roll Finisher Blood Venous blood specimen / Unknown Venipuncture / Unknown 01/15/2025 11:37 AM EDT 01/15/2025 1:35 PM EDT us Festus Avila MD LAB BLOOD ORDERABLES Final R [place] [address] * (ABNORMAL) Comprehensive metabolic panel (01/15/2025 11:37 AM EDT) Sodium 137 133 - 145 mmol/L LAB CHEMISTRY METHOD 01/15/2025 1:57 PM EDT [facility] Potassium 4.6 3.5 - 5.5 mmol/L LAB CHEMISTRY METHOD [facility] Chloride 106 96 - 110 mmol/L LAB CHEMISTRY METHOD 01/15/2025 1:57 PM [facility] CO2 26 21 - 32 mmol/L LAB CHEMISTRY METHOD 01/15/2025 1:57 PM [facility] Anion Gap 5 3 - 11 LAB CHEMISTRY METHOD 01/15/2025 1:57 PM [facility] Glucose 99 70 - 100 mg/dL LAB CHEMISTRY METHOD 01/15/2025 1:57 PM [facility] BUN 30(H) 5 - 25 mg/dL LAB CHEMISTRY METHOD 01/15/2025 1:57 PM [facility] Creatinine 1.13(H) 0.50 - 1.10 mg/dL LAB CHEMISTRY METHOD 01/15/2025 1:57 PM [facility] eGFR 55(L) >=60 mL/min/1. 73m2 LAB CHEMISTRY METHOD 01/15/2025 1:57 PM [facility] Comment:Calculation based on the??Chronic Kidney Disease Epidemiology Collaboration (CKD-EPI) equation refit??without adjustment for race. BUN/Creatinine Ratio 26.5 LAB CHEMISTRY METHOD 01/15/2025 1:57 PM [facility] Calcium 9.6 8.5 - 10.5 mg/dL LAB CHEMISTRY METHOD 01/15/2025 1:57 PM EDT [facility] AST (SGOT) 12 10 - 42 unit/L LAB CHEMISTRY METHOD 01/15/2025 1:57 PM EDT [facility] ALT (SGPT) 21 10 - 60 unit/L LAB CHEMISTRY METHOD 01/15/2025 1:57 PM EDT [facility] Alkaline Phosphatase 85 42 - 121 unit/L LAB CHEMISTRY METHOD 01/15/2025 1:57 PM EDT [facility] Total Protein 7.4 6.0 - 8.0 g/dL LAB CHEMISTRY METHOD 01/15/2025 1:57 PM EDT [facility] Albumin 4.0 3.2 - 5.0 g/dL LAB CHEMISTRY METHOD 01/15/2025 1:57 PM EDT [facility] Total Bilirubin 0.5 0.0 - 1.4 mg/dL LAB CHEMISTRY METHOD 01/15/2025 1:57 PM EDT [facility] Blood Venous blood specimen / Unknown Venipuncture / Unknown 01/15/2025 11:37 AM EDT 01/15/2025 1:35 PM EDT Festus Avila MD LAB BLOOD ORDERABLES Final R esult [facility] [address] [place] [address], * MG Mammo Digital Diagnostic w David [...] year. Mammo Location: [facility], [address] [place] [address], [address], . -------- FINAL REPORT -------- Dictated By: Arti Barrios Dictated Date: 12/11/2024 11:02 ET Assigned Physician: Arti Barrios Reviewed and Electronically Signed By: Arti Barrios Signed Date: 12/11/2024 11:06 ET Workstation ID: [id number] Transcribed By: Self Edit Transcribed Date: 12/11/2024 [...] year. Mammo Location: [facility], [address] [place] [address], [address], . -------- FINAL REPORT -------- Dictated By: Arti Barrios Dictated Date: 12/11/2024 11:02 ET Assigned Physician: Arti Barrios Reviewed and Electronically Signed By: Arti Barrios Signed Date: 12/11/2024 11:06 ET Workstation ID: [id number] Transcribed By: Self Edit Transcribed Date: 12/11/2024 11:02 ET Tatyana Guzman MD IMG BI PROCEDURES Final Result from Last 3 Months Insurance MEDICAID - [place] [employer] MEDICARE Care Teams Safety And Security Manager Relationship Specialty Start Date End Date Tatyana Guzman MD [address] [place] [address] PCP - General 10/15/23
--- OUTSIDE RECORDS SUMMARY | 2025-02-12 11:14 | XMS_ITS | Clinical Summary ---
Author Organization [facility] Facility Address [address] [place] [address], [place] [address] Care Team Providers Care Credit Control Administrator Name Role Phone Bonnie Westfall MD Primary Care Provider [phone] Social History Tobacco Use Types Packs/Day Years Used Date Smoking Tobacco: Never Assessed Comments Unknown Sex and Gender Information Value Date Recorded Sex Assigned at Not on file Legal Sex Female 4:44 PM EST Gender Identity Not on file Sexual Orientation Not on file Plan of Treatment Health Maintenance Due Date Last Done Comments Breast Cancer Screening 1960 Pneumococcal Vaccine: Peds ( 0 to 5 Years) and At-Risk Patients (6 to 49 Years) (1 of 2 - PCV) 02/02/1968 Colorectal Cancer Screening: Annual FOBT 2011 Colorectal Cancer Screening: Colonoscopy 2011 Colorectal Cancer Screening: Sigmoidoscopy 2011 Influenza Vaccine (Season Ended) 2025 Hepatitis B Vaccine Aged Out No longe r eligible based on patient's age to complete this topic Insurance Medicare Medicaid [place] Care Teams Credit Control Administrator Relationship Specialty Start Date End Date Bonnie Westfall MD [address] [place] [phone] PCP - General Internal Medicine 08/08/22
--- OUTSIDE RECORDS SUMMARY | 2025-02-12 11:14 | XMS_ITS | Clinical Summary ---
Author Organization [facility] Address [address] [place] [address] Care Team Providers Care Baking Powder Mixer Name Role Phone Arti King [facility] Primary Care Provider [phone] Source Comments PLEASE NOTE, if this patient [...] lancetsIndications: Type 2 diabetes mellitus without complication ([facility]) Check BS TID before meals E11.9 100 Each 2 6 Active blood sugar diagnostic stripsIndications:T ype 2 diabetes mellitus without complication ([facility]) Check BS TID before meals E11.9 100 [...] pain 03/19/2016 Overview (03/19/2016): Xray 03/14/16 at [facility] is neg for fracture. Leiomyoma of uterus 03/14/2016 Overview (03/14/2016): Per [facility] notes. Entrapment neuropathy of L wrist 03/14/2016 Overview (03/14/2016): L volar wrist hypersensitviity to touch- did EMG at [facility]. Obstructive sleep apnea 03/14/2016 Overview (03/14/2016): Polysomnogram at [facility] 08/10/13, has CPAP Papanicolaou smear 03/14/2016 Overview (03/14/2016): Pap smear 07/01/12 at [facility] Negative for squamous intraepithelial lesion and malignancy, neg HPV H/O mammogram 03/14/2016 Overview (03/14/2016): Mammogram 09/17/14 at [facility] is BIRADS 1 H/O colonoscopy 03/14/2016 Overview (03/14/2016): Colonoscopy at [facility] 05/16/09 and normal. CKD (chronic kidney disease) stage 3, GFR 30-59 ml/min ([facility]) 02/17/2016 Overview (04/25/2016): Previously managed by Dr Ramos at [facility]. Thought to be d/t hypoperfusion given obesity and JONAH. Diabetes mellitus type 2, uncontrolled 6 Hypothyroidism due to acquir ed atrophy of thyroid; had tx w/ iodine-131 for hyperthyroidism 09/16/09 2016 Overview (2016): Post-CORONEL tx'd by Dr Toledo with 10.4 mCi of iodine-131 on 09/16/09 Previously on Tirosint 50mcg cap at [facility]. Celiac disease (HHS-HCC) 2016 Overview (04/25/2016): Seen on endoscopy; duodenum biopsy shows intraepithelial lymphocytes ([place] Stage I) NAFLD (nonalcoholic fatty liver disease) 016 Overview (2016): Had CT of abd and pelvix 09/28/14 d/t elevated LFT's. Findings of hepatic steatosis, hepatomegaly. Seen at [facility], Dr Galeano. LFT's possibly d/t infectious hepatitis type of illness. Fibroid (bleeding) (uterine) 2016 Overview (03/28/2016): Pelvic U/S 02/19/16 at [facility] shows 5.3 cm diameter fundal fibroid. Managed by Jada Sommers CNM Left ankle pain 2016 H/O kidney injury 2016 Overview (2016): H/o CHARITY, seen by Dr Ramos 11/26/14. Unknown etiology, possibly d/t hypoperfusion. Immunizations Immunization Administration Dates Next Due INFLUENZA, SEASONAL, INJECTABLE [...] Plan of Treatment Not on file Insurance [facility] [employer] PLAN Member Subscriber Plan / Payer (Ef fective 2016-Present) Name:Lara Sanz Relation to Subscriber:Self Name:Lara Sanz Payer ID:[id number] Group ID:[id number] Type:Medicaid Address: [address] [address] Care Teams Baking Powder Mixer Relationship Specialty Start Date End Date Arti King FNP [address] [place] [address] PCP - General Family Medicine, STOCKRO[employer] SELECTOR 12/26/15
--- OUTSIDE RECORDS SUMMARY | 2025-02-12 11:14 | XMS_ITS | Patient Health Record ---
Author Organization [employer] [facility] Address [address] [place] [address] Care Team Providers Care Paint Spray Inspector Name Role Phone CIPRIANO CHATMAN, AGNIESZKA Primary Care Provider Antonella Kyra Beasley Unavailable [phone] Allergies Allergen (clinical drug ingredient) Drug/Non Drug [...] Status Risk Notes Problem Postmenopausal atrophic vaginitis (81274857) Postmenopausal atrophic vaginitis (N95.2) Active confirmed Problem SI - Stress incontinence (04441522) Stress incontinence (female) (male) (N39.3) Active confirmed Problem Postmenopausal bleeding (56893352) Postmenopausal bleeding (N95.0) Active confirmed Problem Essential hypertension (10070896) Essential (primary) hypertension (I10) Active confirmed Problem Hypothyroidism (26921225) Hypothyroidism, unspecified (E03.9) Active confirmed Problem Major depression, single episode (59002559) Major depressive disorder, single episode, unspecified (F32.9) Active confirmed Problem Type II diabetes mellitus without complication (221848462) Type 2 diabetes mellitus without complications (E11.9) Active confirmed Problem Obesity (633317078) Obesity, unspecified (E66.9) Active confirmed Problem Chronic migraine without aura, non-refractory (disorder) (088600277138127) Migraine without aura, not intractable, without status migrainosus (G43.009) Active confirmed Problem Celiac disease (321885696) Celiac disease (K90.0) Active confirmed Problem Midline cystocele (551529599) Cystocele, midline (N81.11) Active confirmed Problem Perimenopausal disorder (606769580) Other specified menopausal and perimenopausal disorders (N95.8) Active confirmed Plan Of Treatment Pending Test Test Name Order Date Ultrasound : Sono Hystergram 11/12/2018 [facility] Digital Mammo Screening 11/18/2019 [facility] Digital Mammo Screening 11/23/2020 Insurance Providers Payer Name Payer Address Payer Phone Subscriber Number Group Number Insured Name Patient Relationship to Insured Coverage Start Date Coverage End Date [facility] [address] [place] [phone] [id number] HEVER KO Spouse - patient is the spouse of the insured 1 Medical (General) History Surgical History Surgery Date(Month/Year) Lymphoma 1994 Tubal ligation 1991 Bx on Left Breast-Benign 1988 Hospitalization History Reason Date(Month/Year) See surgical hx
== END 2025-02-12 11:28 | disposition home or self-care (01) ==
LOC: HO.HSMS 10:27
PROVIDERS: PCP Internal Medicine; Visit Provider Nurse Practitioner Family
DX: R06.83 Snoring (principal); R40.0 Somnolence; E66.9 Obesity, unspecified
CPT/HCPCS: 99213

== ENCOUNTER → 2025-02-12 10:26 | Outpatient (BNVA) | payer MEDICARE, MEDICAID, SELFPAY | PROVIDERS: PCP Internal Medicine; Visit Provider Nurse Practitioner Family | DX: R06.83 Snoring (principal); R40.0 Somnolence; E66.9 Obesity, unspecified | CPT/HCPCS: 99212 ==

== ENCOUNTER 2025-05-03 09:21 | Outpatient (REF) | payer MEDICARE, MEDICAID, SELFPAY ==
--- OUTSIDE RECORDS SUMMARY | 2025-05-03 09:40 | XMS_ITS | Patient Health Record ---
Author Organization [facility] [facility] Address [address] [place] [address] Care Team Providers Care Content Editor Name Role Phone CIPRIANO CHATMAN, AGNIESZKA Primary Care Provider Antonella Kyra Beasley Unavailable [phone] Allergies Allergen (clinical drug ingredient) Drug/Non Drug [...] Cream 0.01% 1 Gram externally Twice a week; Duration: 90 days 11/18/2019 Active Social History Tobacco [...] Status Risk Notes Problem Postmenopausal atrophic vaginitis (70812503) Postmenopausal atrophic vaginitis (N95.2) Active confirmed Problem SI - Stress incontinence (78870995) Stress incontinence (female) (male) (N39.3) Active confirmed Problem Postmenopausal bleeding (57106775) Postmenopausal bleeding (N95.0) Active confirmed Problem Essential hypertension (10287504) Essential (primary) hypertension (I10) Active confirmed Problem Hypothyroidism (72508560) Hypothyroidism, unspecified (E03.9) Active confirmed Problem Major depression, single episode (87591263) Major depressive disorder, single episode, unspecified (F32.9) Active confirmed Problem Type II diabetes mellitus without complication (190983262) Type 2 diabetes mellitus without complications (E11.9) Active confirmed Problem Obesity (305529560) Obesity, unspecified (E66.9) Active confirmed Problem Chronic migraine without aura, non-refractory (disorder) (933921632558759) Migraine without aura, not intractable, without status migrainosus (G43.009) Active confirmed Problem Celiac disease (917695028) Celiac disease (K90.0) Active confirmed Problem Midline cystocele (447565939) Cystocele, midline (N81.11) Active confirmed Problem Perimenopausal disorder (030405523) Other specified menopausal and perimenopausal disorders (N95.8) Active confirmed Plan Of Treatment Pending Test Test Name Order Date Ultrasound : Sono Hystergram 11/12/2018 MM Digital Mammo Screening 11/18/2019 MM Digital Mammo Screening 11/23/2020 Insurance Providers Payer Name Payer Address Payer Phone Subscriber Number Group Number Insured Name Patient Relationship to Insured Coverage Start Date Coverage End Date [facility] [address] [place] [phone] [id number] HEVER KO Spouse - patient is the spouse of the insured 1 Medical (General) History Surgical History Surgery Date(Month/Year) Lymphoma 1994 Tubal ligation 1991 Bx on Left Breast-Benign 1988 Hospitalization History Reason Date(Month/Year) See surgical hx
[2025-05-03 13:32] LABS: Estimated Average Glucose 117 mg/dL; Hemoglobin A1c % 5.7 % (<6.0); Total Hemoglobin (HGBA1C) 3255.6244 umol/L
[2025-05-03 13:51] LABS: Alanine Aminotransferase 19 U/L (0-31); Albumin Level 4.4 g/dL (3.5-5.0); Alkaline Phosphatase 77 U/L (39-117); Anion Gap 11 (12-20); Aspartate Amino Transferase 25 U/L (5-31); Bilirubin Total 0.5 mg/dL (0.0-1.0); Blood Urea Nitrogen 15 mg/dL (9-16); Calcium 9.2 mg/dL (8.4-10.2); Carbon Dioxide 26 mmol/L (22-29); Chloride 108 mmol/L (96-108); Estimated Glomerular Filt Rate 48; Glucose Fasting 95 mg/dL (60-99); Potassium 4.8 mmol/L (3.3-5.1); Sodium 140 mmol/L (135-145); Total Protein 7.1 g/dL (6.5-8.0)
[2025-05-03 14:13] LABS: Creatinine Urine 216.07 mg/dL; Microalbum/Creatinine Ratio Ur 4.6 ug/mg cr (<30)
== END 2025-05-03 09:22 | disposition home or self-care (01) ==
LOC: HO.HMGCLDS 09:21
PROVIDERS: PCP Internal Medicine; Visit Provider Internal Medicine
DX: I10 Essential (primary) hypertension (principal); E78.5 Hyperlipidemia, unspecified; E11.22 Type 2 diabetes mellitus with diabetic chronic kidney disease; N18.30 Chronic kidney disease, stage 3 unspecified; E66.01 Morbid (severe) obesity due to excess calories
CPT/HCPCS: 36415; 80053; 82043; 82570; 83036

== ENCOUNTER 2025-05-06 09:37 | Outpatient (AMB) | payer MEDICARE, MEDICAID, SELFPAY ==
[2025-05-06 09:39] VITALS: BP 110/60; PULSE 94; RESP 18; TEMP 36.8; O2SAT 96; BMI 39.7
--- NOTE | 2025-05-06 09:39 | MHC.PC.OV ---
Vital Signs 05/06/25 09:39 Height 5 ft 2 in Weight 217 lb BMI 39.7 BP 110/60 Blood Pressure Location Rt brachial Position Sitting Respiration 18 Pulse 94 Pulse Source Pulse Oximeter Temp 98.2 F Temp Source Oral Pulse Oximetry (%) 96 Oxygen Delivery Method Room Air Intake Visit Reasons: 4m follow up Intake Note: Pt is here today for 4 months follow up visit. Allergies albuteral Adverse Reaction (Uncoded 05/06/25 09:39) low oxygen gluten Adverse Reaction (Uncoded 05/06/25 09:39) upset stomach latex Adverse Reaction (Uncoded 05/06/25 09:39) rash Medication List - Last Reconciled 05/06/25 by Tatyana Guzman MD atorvastatin (Lipitor) 20 mg PO DAILY blood sugar diagnostic As directed blood sugar diagnostic (Opencareuch Verio test strips) 1 TID blood-glucose sensor (PlextronicsStyle Tim 3 Sensor device) As directed exemestane 25 mg PO DAILY Farxiga (dapagliflozin propanediol) 10 mg PO DAILY NS gabapentin 400 mg PO TID lancets (ddmap.comTouch Delica Plus Lancet) As directed levothyroxine 88 mcg PO DAILY losartan 50 mg PO DAILY magnesium glycinate 200 mg orally at bedtime daily; 30 days melatonin 3 mg PO BEDTIME PRN 30 days meloxicam 7.5 mg PO DAILY metformin 1,000 mg PO BID Ozempic (semaglutide) 2 mg (0.75 mL) subcut QWEEK NS Tobacco use date assessed: 05/06/25 Dental Screening Dental Screen Date: 01/04/25 HPI 4m follow up HPI Details Pt presents for f/u HTN, DM2, hypothyroid, stable on meds. Pt c/o L lower rib pain, positional for 1 week. She denies cough shortness or breath fever chills GI or complaints PFSH Medical History (Updated 05/06/25 @ 10:44 by Tatyana Guzman MD) Breast cancer, right breast CKD stage 3 due to type 2 diabetes mellitus Obesity, Class III, BMI 40-49.9 (morbid obesity) DM type 2 (diabetes mellitus, type 2) Hyperlipidemia HTN (hypertension) Sleep apnea JONAH (obstructive sleep apnea) Surgical History Hx of tubal ligation H/O foot surgery Family History Father CAD (coronary artery disease), Onset Age: 70 Substance use disorder Mother COPD (chronic obstructive pulmonary disease) Social History Household Members Other:: , 3 children, on disability Housing: House Patient Tobacco Use Status: Never used Tobacco e-Cigarette/Vaping Use: Never Used service: No Current occupational status: unemployed Cognitive needs: No Hearing needs: No Vision needs: Yes Questionnaire Thrive Questionnaire Date Thrive assessed: 01/01/25 I am a: Patient What is your living situation today?: I have a steady place to live Within the past 12 months, did the food you bought not last and you didn't have the money to get more?: Sometimes True Within the past 12 months, did you worry whether your food would run out before you got money to buy more?: Sometimes True Do you have trouble paying for medicines?: No Do you have trouble getting transportation to medical appointments?: No Do you have trouble paying your heating and electricity bill?: I choose not to answer this question Do you have trouble taking care of your child, family member or friend?: No Do you have trouble with day-to-day activities such as bathing, preparing meals, shopping, managing finances, etc.?: No Are you currently unemployed and looking for a job?: No Are you interested in more education?: No Please select the resources that you would like help with: None Currently or been in a relationship where the following occur: No concerns reported THRIVE Score: 2 CATHY-7 AMB Questionnaire CATHY-7 Date CATYH - 7 assessed: 01/04/25 Source: Developed by Drs. Kory Matson, Christel Gill, Jose Elizabeth and colleagues, with an educational layne from [employer] Review of Systems Const All systems reviewed & are unremarkable except as noted in HPI and below ENT Reports no additional complaints Card Reports no additional complaints Resp Reports no additional complaints GI Reports no additional complaints Reports no additional complaints Physical exam (Primary Care) Vital Signs: Last Vital Signs Temp 98.2 F 05/06/25 09:39 Pulse 94 05/06/25 09:39 Resp 18 05/06/25 09:39 BP 110/60 05/06/25 09:39 Pulse Ox 96 05/06/25 09:39 Oxygen Delivery Method Room Air 05/06/25 09:39 BMI result Body Mass Index 39.7 Tobacco/Smoking Status: Tobacco use Status Tobacco use date assessed 05/06/25 05/06/25 09:43 Patient Tobacco Use Status Never used Tobacco 05/06/25 09:43 e-Cigarette/Vaping Use Never Used 05/06/25 09:43 Thrive Assessment: Date of Thrive Assessment Date Thrive assessed 01/01/25 05/06/25 09:43 Currently or been in a relationship where the following occur: No concerns reported Const General: no acute distress HENMT Head: Yes normal to inspection Mouth: Normal oral and palatal mucosa present Throat: Yes posterior oropharynx normal Eyes General: appearance normal, both eyes and all related structures Neck Neck: Yes supple Chest Chest palpation & inspection: localized rib tenderness with anteroposterior compression (left lower ribs) Resp Effort & Inspection: normal respiratory effort Auscultation: clear to auscultation bilaterally Cardio Rhythm: regular rhythm Heart sounds: S1 normal heart sound present and S2 normal heart sound present GI Inspection: Yes normal to inspection Palpation (GI): Soft to palpation Percussion: Yes normal to percussion Auscultation: normal bowel sounds Coding Level of Care Code Est Pt Level 4 (97767) Complex EM visit Add On G2211 Diagnoses HTN (hypertension) I10 Hyperlipidemia E78.5 DM type 2 (diabetes mellitus, type 2) E11.9 Diabetes mellitus intermodal customer service insulin use: without intermodal customer service use Obesity E66.9 CKD stage 3 due to type 2 diabetes mellitus E11.22; N18.30 Obesity, Class III, BMI 40-49.9 (morbid obesity) E66.01 Assessment & Plan Assessment & Plan (1) HTN (hypertension): Code(s): I10 - Essential (primary) hypertension Category: Medical Plan: cont meds (2) Hyperlipidemia: Code(s): E78.5 - Hyperlipidemia, unspecified Category: Medical Plan: cont statin (3) DM type 2 (diabetes mellitus, type 2): Code(s): E11.9 - Type 2 diabetes mellitus without complications Category: Medical Qualifiers: Diabetes mellitus intermodal customer service insulin use: without penitentiary use Plan: A1c is 5.7, ADA diet, cont meds, pt will check with insurance coverage for Farhat (4) Obesity: Code(s): E66.9 - Obesity, unspecified Category: Medical Plan: decrease caloric intake, increase exercise, (5) CKD stage 3 due to type 2 diabetes mellitus: Code(s): E11.22 - Type 2 diabetes mellitus with diabetic chronic kidney disease; N18.30 - Chronic kidney disease, stage 3 unspecified Category: Medical Plan: Monitor renal function (6) Obesity, Class III, BMI 40-49.9 (morbid obesity): Code(s): E66.01 - Morbid (severe) obesity due to excess calories Category: Medical Plan: Decreasing caloric intake increasing physical activity discussed with the patient. She was advised to try weight watchers program to maintain healthy caloric intake Orders: Orders Comprehensive [place]. Panel Fast 3 Months E11.9 - Type 2 diabetes mellitus without complications, E66.01 - Morbid (severe) obesity due to excess calories, E78.5 - Hyperlipidemia, unspecified, I10 - Essential (primary) hypertension Lipid Panel 3 Months E11.9 - Type 2 diabetes mellitus without complications, E66.01 - Morbid (severe) obesity due to excess calories, E78.5 - Hyperlipidemia, unspecified, I10 - Essential (primary) hypertension Microalbumin, Random (w Creat) 3 Months E11.9 - Type 2 diabetes mellitus without complications, E66.01 - Morbid (severe) obesity due to excess calories, E78.5 - Hyperlipidemia, unspecified, I10 - Essential (primary) hypertension TSH reflex Free T4 3 Months E11.9 - Type 2 diabetes mellitus without complications, E66.01 - Morbid (severe) obesity due to excess calories, E78.5 - Hyperlipidemia, unspecified, I10 - Essential (primary) hypertension Complete Blood Count Auto Diff 3 Months E11.9 - Type 2 diabetes mellitus without complications, E66.01 - Morbid (severe) obesity due to excess calories, E78.5 - Hyperlipidemia, unspecified, I10 - Essential (primary) hypertension Hemoglobin A1c 3 Months E11.9 - Type 2 diabetes mellitus without complications, E66.01 - Morbid (severe) obesity due to excess calories, E78.5 - Hyperlipidemia, unspecified, I10 - Essential (primary) hypertension Medications: New meloxicam 7.5 mg PO DAILY 7 tabs 0RF Changed From gabapentin 1 capsule in the am and noon and 2 capsules at night 400 mg PO TID 360 caps 3RF To gabapentin 400 mg PO BID 180 caps 3RF
--- OUTSIDE RECORDS SUMMARY | 2025-05-06 09:59 | XMS_ITS | Patient Health Record ---
Author Organization [employer] [facility] Address [address] [place] [phone] Care Team Providers Care Audio Visual Equipment Rental Clerk Name Role Phone CIPRIANO CHATMAN, AGNIESZKA Primary Care Provider Antonella Kyra Beasley Unavailable [phone] Allergies Allergen (clinical drug ingredient) Drug/Non Drug Allergy documented on EMR Reaction Allergy Type Onset Date Status Gluten (celiac disease) (uncoded) Unknown Allergy Active Latex Latex (uncoded) rash Allergy Acti ve Albuterol cant breathe Drug Allergy Acti ve [...] Status Risk Notes Problem Postmenopausal atrophic vaginitis (20197547) Postmenopausal atrophic vaginitis (N95.2) Active confirmed Problem SI - Stress incontinence (69591802) Stress incontinence (female) (male) (N39.3) Active confirmed Problem Postmenopausal bleeding (40401784) Postmenopausal bleeding (N95.0) Active confirmed Problem Essential hypertension (96883011) Essential (primary) hypertension (I10) Active confirmed Problem Hypothyroidism (36784308) Hypothyroidism, unspecified (E03.9) Active confirmed Problem Major depression, single episode (16343839) Major depressive disorder, single episode, unspecified (F32.9) Active confirmed Problem Type II diabetes mellitus without complication (221602629) Type 2 diabetes mellitus without complications (E11.9) Active confirmed Problem Obesity (679625078) Obesity, unspecified (E66.9) Active confirmed Problem Chronic migraine without aura, non-refractory (disorder) (049749288745612) Migraine without aura, not intractable, without status migrainosus (G43.009) Active confirmed Problem Celiac disease (962730735) Celiac disease (K90.0) Active confirmed Problem Midline cystocele (274006866) Cystocele, midline (N81.11) Active confirmed Problem Perimenopausal disorder (739142561) Other specified menopausal and perimenopausal disorders (N95.8) Active confirmed Plan Of Treatment Pending Test Test Name Order Date Ultrasound : Sono Hystergram 11/12/2018 MM Digital Mammo Screening 11/18/2019 MM Digital Mammo Screening 11/23/2020 Insurance Providers Payer Name Payer Address Payer Phone Subscriber Number Group Number Insured Name Patient Relationship to Insured Coverage Start Date Coverage End Date [facility] [address] [place] [phone] [id number] HEVER [place] Spouse - patient is the spouse of the insured 1 Medical (General) History Surgical History Surgery Date(Month/Year) Lymphoma 1994 Tubal ligation 1991 Bx on Left Breast-Benign 1988 Hospitalization History Reason Date(Month/Year) See surgical hx
--- OUTSIDE RECORDS SUMMARY | 2025-05-06 10:00 | XMS_ITS | Clinical Summary ---
Author Organization [facility] Address [address] [place], [place] [id number] Care Team Providers Care Nurse Advisor Name Role Phone Tatyana Guzman MD Primary Care Provider [phone] Allergies Active Allergy Reactions Criticality Noted Date Comments Albuterol 02/20/2013 Other reaction(s): Latex, SOB, Wheezing Per [place] notes Per [place] notes Gluten 09/01/2010 Other reaction(s): OTHER Throat tightens/tickles Latex 03/17/2009 Other reaction(s): itch Other reaction(s): itch Lisinopril High 09/09/2014 Other reaction(s): Rash/Dermatitis Per [place] notes Medications Medication Sig Dispensed Refills Start [...] 64 07/15/2024 11:17 AM EDT Temperature 36.3 C (97.3 F) 07/15/2024 11:17 AM EDT Respiratory Rate - - Oxygen Saturation 100% [...] 60-74 years 1-dose series) 2022 Influenza Vaccine (Season Ended) 2025 09/05/2021, 09/23/2019, 09/19/2018, Additional history exists Hepatitis B Vaccines Aged Out No long er eligible based on patient's age to complete this topic RSV Ped < 20 months Aged Out No longe r eligible based on patient's age to complete this topic Care Teams Nurse Advisor Relationship Specialty Start Date End Date Tatyana Guzman MD [address] [place] [address] PCP - General Cripple Worker 10/15/23
--- OUTSIDE RECORDS SUMMARY | 2025-05-06 10:00 | XMS_ITS | Clinical Summary ---
Author Organization [facility] Address [address] [place] [address] Phone Care Team Providers Care Bicycle Repairman Name Role Phone Tatyana Guzman MD Primary Care Provider [phone] Allergies Active Allergy Reactions Criticality Noted Date Comments Albuterol Shortness of breath,Rash,Wheezing High 02/20/2013 Other reaction(s): Latex, SOB, Wheezing Per [place] notes Per [place] notes Per [place] notes Gluten Other,Swelling 09/01/2010 Other reaction(s): OTHER Throat tightens/tickles Throat tightens/tickles Latex Itching,Rash 03/17/2009 Other reaction(s): itch Other reaction(s): itch Other reaction(s): itch Lisinopril Rash High 09/09/2014 Other reaction(s): Rash/Dermatitis Per [place] notes Per [place] notes Other 2016 Other reaction(s): swell Medications atorvastatin (LIPITOR) 20 mg tablet 2 [...] by mouth 2 (two) times a day. Active semaglutide (Ozempic) 0.25 mg or 0.5 mg(2 mg/1.5 mL) injection pen Inject under the skin. Active glipiZIDE (GLUCOTROL) 5 mg tablet - Route: Take 1 tablet (5 mg total) by mouth 2 (two) times a day before breakfast and dinner. - Oral Active exemestane (AROMASIN) 25 mg tablet Take 1 tablet (25 mg total) by mouth 1 (one) time each day Take after a meal. Try to take at the same time each day. 30 tablet 03/26/20 26 Active Encounters Date Type Department Care Team Description 04/14/2025 2:45 PM EDT Office Visit [facility] [address] [place] [phone] Lorena Rehman MD Malignant neoplasm of upper-outer quadrant of right breast in female, estrogen receptor positive (CMS/HCC V24, CMS/HCC V28) (Primary Dx); History of therapeutic radiation 02/12/2025 11:45 AM EDT Office Visit [facility] Hematology Oncology [address] [place] [address] Festus Avila MD Invasive lobular carcinoma of breast, stage 2, right (CMS/HCC V24, CMS/HCC V28) (Primary Dx); Nonintractable episodic headache, unspecified headache type from Last 3 Months Surgical History Surgery [...] Sign Reading Time Taken Comments Blood Pressure 106/60 04/14/2025 3:20 PM EDT Pulse 76 04/14/2025 3:20 PM EDT Temperature 36 C (96.8 F) 04/14/2025 3:20 PM EDT Respiratory Rate - - Oxygen Saturation 99% 02/12/2025 11:43 AM EDT Inhaled Oxygen Concentration - - Weight 99.8 kg (220 lb) 04/14/2025 3:20 PM EDT Height 157.5 cm (5' 2 ) 12/11/2024 10:43 AM EST Body Mass Index 40.24 12/11/2024 10:43 AM EST Plan of Treatment Upcoming Encounters Date Type Department Care Team (Late st Contact Info) Description 06/11/2025 1:30 PM EDT Appointment [facility] Bone Density [address] [place] [phone] 10/18/2025 10:00 AM EST Office Visit [facility] Hematology Oncology [address] [place] [phone] Festus Avila MD [address] [place] [phone] 12/13/2025 11:00 AM EST [facility]ointment [facility] [address] [phone] 04/13/2026 1:15 PM EDT Office Visit [facility] [address] [phone] Lorena Rehman MD [address] [place] [phone] Health Maintenance Due Date Last Done Comments [...] Sugar Control Test (HGBA1C) 12/11/2024 Influenza Vaccine (#1) 2025 , 09/23/2019, 09/19/2018, Additional history exists Diabetes: [...] Procedure Name Priority Date/Time Associated Diagnosis Comments COMPREHENSIVE METABOLIC PANEL Routine 01/15/2025 11:37 AM EDT Invasive lobular carcinoma of breast, stage 2, right (CMS/HCC V24, CMS/HCC V28) Intractable episodic headache, unspecified headache type MG MAMMO DIGITAL DIAGNOSTIC W ADELA BILAT Routine 12/11/2024 11:07 AM EST Encounter for screening mammogram for malignant neoplasm of breast from Last 3 Months or Most Recently Relevant to Health Maintenance Results * (ABNORMAL) Comprehensive metabolic panel (01/15/2025 11:37 AM EDT) Sodium 137 133 - 145 mmol/L LAB CHEMISTRY METHOD 01/15/2025 1:57 PM [facility] Potassium 4.6 3.5 - 5.5 mmol/L LAB CHEMISTRY METHOD 01/15/2025 1:57 PM EDT [facility] Chloride 106 96 - 110 mmol/L LAB CHEMISTRY METHOD 01/15/2025 1:57 PM [facility] CO2 26 21 - 32 mmol/L LAB CHEMISTRY METHOD 01/15/2025 1:57 PM [facility] Anion Gap 5 3 - 11 LAB CHEMISTRY METHOD 01/15/2025 1:57 PM EDT [facility] Glucose 99 70 - 100 mg/dL LAB CHEMISTRY METHOD 01/15/2025 1:57 PM [facility] BUN 30(H) 5 - 25 mg/dL LAB CHEMISTRY METHOD 01/15/2025 1:57 PM [facility] Creatinine 1.13(H) 0.50 - 1.10 mg/dL LAB CHEMISTRY METHOD 01/15/2025 1:57 PM [facility] eGFR 55(L) >=60 mL/min/1. 73m2 LAB CHEMISTRY METHOD 01/15/2025 1:57 PM [facility] Comment:Calculation based on the Chronic Kidney Disease Epidemiology Collaboration (CKD-EPI) equation refit without adjustment for race. BUN/Creatinine Ratio 26.5 LAB CHEMISTRY METHOD 01/15/2025 1:57 PM [facility] Calcium 9.6 8.5 - 10.5 mg/dL LAB CHEMISTRY METHOD 01/15/2025 1:57 PM [facility] AST (SGOT) 12 10 - 42 unit/L LAB CHEMISTRY METHOD 01/15/2025 1:57 PM [facility] ALT (SGPT) 21 10 - 60 unit/L LAB CHEMISTRY METHOD 01/15/2025 1:57 PM [facility] Alkaline Phosphatase 85 42 - 121 unit/L LAB CHEMISTRY METHOD 01/15/2025 1:57 PM [facility] Total Protein 7.4 6.0 - 8.0 g/dL LAB CHEMISTRY METHOD 01/15/2025 1:57 PM [facility] Albumin 4.0 3.2 - 5.0 g/dL LAB CHEMISTRY METHOD 01/15/2025 1:57 PM [facility] Total Bilirubin 0.5 0.0 - 1.4 mg/dL LAB CHEMISTRY METHOD 01/15/2025 1:57 PM [facility] Blood Venous blood specimen / Unknown Venipuncture / Unknown 01/15/2025 11:37 AM EDT 01/15/2025 1:35 PM EDT Festus Avila MD LAB BLOOD ORDERABLES Final R esult [facility] [address] [place] [address], [place] [phone] * MG Mammo Digital Diagnostic w Adela bilat (12/11/2024 11:07 AM EST) Anatomical Region Laterality Modality Breast Bilateral Mammography 12/11/2024 11:0 2 AM EST Impressions 12/11/2024 11:06 AM EST Stable post lumpectomy changes. Recommend return return to routine screening in one year. Findings and recommendations were conveyed to the patient. BI-RADS CATEGORY: 2 - BENIGN RECOMMENDATION: Screening bilateral mammogram is recommended in 1 year. Mammo Location: [facility], [address] [place] [address], [phone], . -------- FINAL REPORT -------- Dictated By: Arti Barrios Dictated Date: 12/11/2024 11:02 ET Assigned Physician: Arti Barrios Reviewed and Electronically Signed By: Arti Barrios Signed Date: 12/11/2024 11:06 ET Workstation ID: [id number] Transcribed By: Self Edit Transcribed Date: 12/11/2024 11:02 ET Narrative 12/11/2024 11:06 AM EST CLINICAL: 64 years old, Female, follow-up diagnostic mammogram per lumpectomy protocol. History of right breast cancer. COMPARISON: 12/09/2023, 01/10/2023, 08/27/2022 and 07/12/2022 FINDINGS: MAMMOGRAPHY TECHNIQUE: Bilateral MLO and CC views were obtained digitally with 3-D mammogram (digital breast tomosynthesis). Computer-aided detection was utilized in evaluation of this exam (CAD). Stable post lumpectomy changes in the right upper outer quadrant at posterior depth. There is no evidence of suspicious mass or architectural distortion. No worrisome calcifications are evident. There has been no significant change from prior exam(s). BREAST DENSITY: B [...] year. Mammo Location: [facility], [address] [place] [address], [phone], . -------- FINAL REPORT -------- Dictated By: Arti Barrios Dictated Date: 12/11/2024 11:02 ET Assigned Physician: Arti Barrios Reviewed and Electronically Signed By: Arti Barrios Signed Date: 12/11/2024 11:06 ET Workstation ID: [id number] Transcribed By: Self Edit Transcribed Date: 12/11/2024 11:02 ET us Tatyana Guzman MD IMG BI PROCEDURES Final Result from Last 3 Months or Most Recently Relevant to Health Maintenance Insurance MEDICAID - [place] [employer] MEDICARE Care Teams Bicycle Repairman Relationship Specialty Start Date End Date Tatyana Guzman MD PCP - General 10/15/23
--- OUTSIDE RECORDS SUMMARY | 2025-05-06 10:00 | XMS_ITS | Clinical Summary ---
Author Organization [facility] Facility Address [address] [place] [address], [place] [address] Care Team Providers Care School Photographer Name Role Phone Bonnie Westfall MD Primary Care Provider [phone] Social History Tobacco Use Types Packs/Day Years Used Date Smoking Tobacco: Never Assessed Comments Unknown Sex and Gender Information Value Date Recorded Sex Assigned at Not on file Legal Sex Female 4:44 PM EST Gender Identity Not on file Sexual Orientation Not on file Plan of Treatment Health Maintenance Due Date Last Done Comments Breast Cancer Screening 1962 Pneumococcal Vaccine: 50+ Ye ars (1 of 2 - PCV) 1981 Colorectal Cancer Screening: Annual FOBT 2011 Colorectal Cancer Screening: Colonoscopy 2011 Colorectal Cancer Screening: Sigmoidoscopy 2011 Influenza Vaccine (Season Ended) 2025 Hepatitis B Vaccine Aged Out No longe r eligible based on patient's age to complete this topic Insurance Medicare Medicaid [place] Medicare Medicaid [place] Care Teams School Photographer Relationship Specialty Start Date End Date Bonnie Westfall MD [address] [place] [address] PCP - General Internal Medicine 08/08/22
--- OUTSIDE RECORDS SUMMARY | 2025-05-06 10:00 | XMS_ITS | Clinical Summary ---
Author Organization [facility] Address [address] [place] [address] Care Team Providers Care Online Merchandising Coordinator Name Role Phone Arti King [facility] Primary Care Provider [phone] Source Comments PLEASE NOTE, if this patient [...] lancetsIndications: Type 2 diabetes mellitus without complication ([facility]) Check BS TID before meals E11.9 100 Each 2 6 Active blood sugar diagnostic stripsIndications:T ype 2 diabetes mellitus without complication ([facility]) Check BS TID before meals E11.9 100 [...] pain 03/19/2016 Overview (03/19/2016): Xray 03/14/16 at [facility] is neg for fracture. Leiomyoma of uterus 03/14/2016 Overview (03/14/2016): Per [facility] notes. Entrapment neuropathy of L wrist 03/14/2016 Overview (03/14/2016): L volar wrist hypersensitviity to touch- did EMG at [facility]. Obstructive sleep apnea 03/14/2016 Overview (03/14/2016): Polysomnogram at [facility] 08/10/13, has CPAP Papanicolaou smear 03/14/2016 Overview (03/14/2016): Pap smear 07/01/12 at [facility]., Negative for squamous intraepithelial lesion and malignancy, neg HPV H/O mammogram 03/14/2016 Overview (03/14/2016): Mammogram 09/17/14 at [facility] is BIRADS 1 H/O colonoscopy 03/14/2016 Overview (03/14/2016): Colonoscopy at [facility] 05/16/09 and normal. CKD (chronic kidney disease) stage 3, GFR 30-59 ml/min (CMS & HHS-HCC) 02/17/2016 Overview (04/25/2016): Previously managed by Dr Ramos at [facility]. Thought to be d/t hypoperfusion given obesity and JONAH. Diabetes mellitus type 2, uncontrolled 6 Hypothyroidism due to acquir ed atrophy of thyroid; had tx w/ iodine-131 for hyperthyroidism 09/16/09 2016 Overview (2016): Post-CORONEL tx'd by Dr Toledo with 10.4 mCi of iodine-131 on 09/16/09 Previously on Tirosint 50mcg cap at [facility]. Celiac disease (HHS-HCC) 2016 Overview (04/25/2016): Seen on endoscopy; duodenum biopsy shows intraepithelial lymphocytes ([place] Stage I) NAFLD (nonalcoholic fatty liver disease) 016 Overview (2016): Had CT of abd and pelvix 09/28/14 d/t elevated LFT's. Findings of hepatic steatosis, hepatomegaly. Seen at [facility], Dr Galeano. LFT's possibly d/t infectious hepatitis type of illness. Fibroid (bleeding) (uterine) 2016 Overview (03/28/2016): Pelvic U/S 02/19/16 at [facility] shows 5.3 cm diameter fundal fibroid. Managed by Jada Sommers CNM Left ankle pain 2016 H/O kidney injury 2016 Overview (2016): H/o CHARITY, seen by Dr Ramos 11/26/14. Unknown etiology, possibly d/t hypoperfusion. Immunizations Immunization Administration Dates Next Due INFLUENZA, SEASONAL, INJECTABLE 06/27/2017,08/11 PNEUMOCOCCAL POLYSACCHARIDE PPV23 (Pneumovax 23) 06/04/2012 TDAP 03/17/2009 Td(adult),2 Lf tetanus toxoid,preservative [...] 76 03/22/2016 1:13 PM EDT Temperature 36.9 C (98.5 F) 03/14/2016 1:36 PM EDT Respiratory Rate 16 03/22/2016 1:13 PM EDT Oxygen Saturation - - Inhaled Oxygen Concentration - - Weight 123.8 kg (273 lb) 03/26/2016 10:34 AM EDT Height 157.5 cm (5' 2 ) 03/26/2016 10:34 AM EDT Body Mass Index 49.93 03/26/2016 10:34 AM EDT Plan of Treatment Not on file Insurance [facility] [employer] Member Subscriber Plan / Payer (Ef fective 2016-Present) Name:Lara Sanz Relation to Subscriber:Self Name:Lara Sanz Payer ID:[id number] Group ID:[id number] Type:Medicaid Address: [id number] [place] [address] Care Teams Online Merchandising Coordinator Relationship Specialty Start Date End Date Arti King FNP [address] [place] [address] PCP - General Family Medicine, AIR BAG CURER 12/26/15
== END 2025-05-06 10:41 | disposition home or self-care (01) ==
LOC: HO.HMCC 09:37
PROVIDERS: PCP Internal Medicine; Visit Provider Internal Medicine
DX: I12.9 Hypertensive chronic kidney disease with stage 1 through stage 4 chronic kidney disease, or unspecified chronic kidney disease (principal); E11.69 Type 2 diabetes mellitus with other specified complication; E11.22 Type 2 diabetes mellitus with diabetic chronic kidney disease; N18.30 Chronic kidney disease, stage 3 unspecified; E66.01 Morbid (severe) obesity due to excess calories; Z68.39 Body mass index [BMI] 39.0-39.9, adult; E78.5 Hyperlipidemia, unspecified

== ENCOUNTER → 2025-05-06 09:37 | Outpatient (BNVA) | payer MEDICARE, MEDICAID, SELFPAY | PROVIDERS: PCP Internal Medicine; Visit Provider Internal Medicine | DX: E78.5 Hyperlipidemia, unspecified (principal); I12.9 Hypertensive chronic kidney disease with stage 1 through stage 4 chronic kidney disease, or unspecified chronic kidney disease; E11.22 Type 2 diabetes mellitus with diabetic chronic kidney disease; N18.30 Chronic kidney disease, stage 3 unspecified; E66.01 Morbid (severe) obesity due to excess calories; Z68.39 Body mass index [BMI] 39.0-39.9, adult; Z71.3 Dietary counseling and surveillance | CPT/HCPCS: 99212 ==

== ENCOUNTER 2025-08-05 08:54 | Outpatient (REF) | payer MEDICARE, MEDICAID, SELFPAY ==
--- OUTSIDE RECORDS SUMMARY | 2025-08-05 09:31 | XMS_ITS | Clinical Summary ---
Author Organization [facility] Facility Address [address] [place] [address], [place] [address] Care Team Providers Care Data Processing Clerk Name Role Phone Bonnie Westfall MD Primary Care Provider [phone] Social History Tobacco Use Types Packs/Day Years [...] Cancer Screening: Sigmoidoscopy 2011 Influenza Vaccine (#1) 2025 Hepatitis B Vaccine Aged Out No longe r eligible based on patient's age to complete this topic Insurance Medicare Medicaid [place] Medicare Medicaid [place] Care Teams Data Processing Clerk Relationship Specialty Start Date End Date Bonnie Westfall MD [address] [place] [phone] PCP - General Internal Medicine 08/08/22
--- OUTSIDE RECORDS SUMMARY | 2025-08-05 09:31 | XMS_ITS | Clinical Summary ---
Author Organization [facility] Address [address] [place], [place] [id number] Care Team Providers Care Steel Die Press Set Up Operator Name Role Phone Tatyana Guzman MD Primary Care Provider [phone] Allergies Active Allergy Reactions Criticality Noted Date Comments Albuterol 02/20/2013 Other reaction(s): Latex, SOB, Wheezing Per [place] notes Per [place] notes Gluten 09/01/2010 Other reaction(s): OTHER Throat tightens/tickles Latex 03/17/2009 Other reaction(s): itch Other reaction(s): itch Lisinopril High 09/09/2014 Other reaction(s): Rash/Dermatitis Per [place] notes Medications Medication Sig Dispensed Refills Start [...] Hepatitis C Screening 1962 COVID-19 Vaccine (#1) 1962 Depression Screening 1974 Preventative Health Evaluation 02/02/1980 Cervical Cancer Screening (Pap Smear) 1983 Colon Cancer Screening (Colonoscopy) 2007 Breast Cancer Screening (Mammogram) 02/02/2012 Shingrix-Zoster Vaccine (1 of 2) 02/02/2012 DTap / Tdap / Td (2 - Td or Tdap) 03/17/2019 03/17/2009, 01/02/1998 Influenza Vaccine (#1) 2025 , 09/23/2019, 09/19/2018, Additional history exists RSV Adult > 60+ Yrs or (1 - 1-dose 75+ series) 2037 Pneumococcal Vaccine Aged Out 10/27/2018, 06/04/20 12 No longer eligible based on patient's age to complete this topic Hepatitis B Vaccines Aged Out No long er eligible based on patient's age to complete this topic RSV Ped < 20 months Aged Out No longe r eligible based on patient's age to complete this topic Care Teams Steel Die Press Set Up Operator Relationship Specialty Start Date End Date Tatyana Guzman MD [address] [place] [address] PCP - General Manager Telemetry 10/15/23
--- OUTSIDE RECORDS SUMMARY | 2025-08-05 09:31 | XMS_ITS | Patient Health Record ---
Author Organization [employer] [facility] Address [address] [place] [phone] Care Team Providers Care Mold Filler Name Role Phone CIPRIANO CHATMAN, AGNIESZKA Primary Care Provider Antonella Kyra Beasley Unavailable [phone] Allergies Allergen (clinical drug ingredient) Drug/Non Drug [...] Status Risk Notes Problem Postmenopausal atrophic vaginitis (30009136) Postmenopausal atrophic vaginitis (N95.2) Active confirmed Problem SI - Stress incontinence (43038022) Stress incontinence (female) (male) (N39.3) Active confirmed Problem Postmenopausal bleeding (76063829) Postmenopausal bleeding (N95.0) Active confirmed Problem Essential hypertension (22069236) Essential (primary) hypertension (I10) Active confirmed Problem Hypothyroidism (62488162) Hypothyroidism, unspecified (E03.9) Active confirmed Problem Major depression, single episode (52540608) Major depressive disorder, single episode, unspecified (F32.9) Active confirmed Problem Type II diabetes mellitus without complication (989636897) Type 2 diabetes mellitus without complications (E11.9) Active confirmed Problem Obesity (470005281) Obesity, unspecified (E66.9) Active confirmed Problem Chronic migraine without aura, non-refractory (disorder) (225451666008075) Migraine without aura, not intractable, without status migrainosus (G43.009) Active confirmed Problem Celiac disease (613717178) Celiac disease (K90.0) Active confirmed Problem Midline cystocele (942446585) Cystocele, midline (N81.11) Active confirmed Problem Perimenopausal disorder (593077616) Other specified menopausal and perimenopausal disorders (N95.8) Active confirmed Plan Of Treatment Pending Test Test Name Order Date Ultrasound : Sono Hystergram 11/12/2018 MM Digital Mammo Screening 11/18/2019 MM Digital Mammo Screening 11/23/2020 Insurance Providers Payer Name Payer Address Payer Phone Subscriber Number Group Number Insured Name Patient Relationship to Insured Coverage Start Date Coverage End Date [facility] [address] [place] [phone] [id number] HEVER KO Spouse - patient is the spouse of the insured 1 Medical (General) History Surgical History Surgery Date(Month/Year) Lymphoma 1994 Tubal ligation 1991 Bx on Left Breast-Benign 1988 Hospitalization History Reason Date(Month/Year) See surgical hx
--- OUTSIDE RECORDS SUMMARY | 2025-08-05 09:31 | XMS_ITS | Clinical Summary ---
Author Organization [facility] Address [address] [place] [address] Phone Care Team Providers Care Operators Teacher Name Role Phone Tatyana Guzman MD Primary Care Provider [phone] Allergies Active Allergy Reactions Criticality Noted Date Comments Albuterol Shortness of breath,Rash,Wheezing High 02/20/2013 Other reaction(s): Latex, SOB, Wheezing Per [place] notes Per [place] notes Per [place] notes Gluten Other,Swelling 09/01/2010 Other reaction(s): OTHER Throat tightens/tickles Throat tightens/tickles Latex Itching,Rash 03/17/2009 Other reaction(s): itch Other reaction(s): itch Other reaction(s): itch Lisinopril Rash High 09/09/2014 Other reaction(s): Rash/Dermatitis Per [place] notes Per [place] notes Other 2016 Other reaction(s): swell Medications [...] the same time each day. 30 tablet 11 06/12/20 26 Active Encounters Date Type Department Care Team Description 06/11/2025 1:15 PM EDT - 06/11/2025 11:59 PM EDT Hospital Encounter [facility] Bone Density [address] [place] [address] Invasive lobular carcinoma of breast, stage 2, right (CMS/[facility] V24, CMS/[facility] V28); Encounter for osteoporosis screening in asymptomatic postmenopausal patient Discharge Disposition: Home or Self Care 06/11/2025 Telephone [facility] Hematology Oncology [address] [place] [address] Festus Avila MD from Last 3 Months Surgical History Surgery [...] Care Team (Late st Contact Info) Description 10/18/2025 10:00 AM EST Office Visit [facility] Hematology Oncology [address] [place] [phone] Festus Avila MD [address] [place] [address] 12/13/2025 11:00 AM EST [facility]ointment [facility] [address] [address] 04/13/2026 1:15 PM EDT Office Visit Breast Care [address] [address] Lorena Rehman MD [address] [place] [phone] Health Maintenance Due Date Last Done Comments [...] series) 2022 Cholesterol Screening (Lipid Panel) 10/02/2022 HIV Screening 10/02/2022 Hepatitis C Screening 10/02/2022 Medicare Annual Wellness Visit 10/02/2022 Social Influencers of Health Screening 10/02/2022 Depression Screening 11/04/2024 Diabetes: Annual Urine Albumin-Creatinine Ratio (uACR) 12/11/2024 [...] Td or Tdap) 09/19/2028 09/19/2018, 03/17/2009, 01/02/1998 Osteoporosis Screening (Bone Density Screening) 06/11/2035 06/11/2025, 03/18/2023 HIB Vaccines Aged Out No longer eligi [...] Procedure Name Priority Date/Time Associated Diagnosis Comments BD BONE DENSITY DXA AXIAL SKELETON Routine 06/11/2025 1:48 PM EDT Invasive lobular carcinoma of breast, stage 2, right (CMS/HCC V24, CMS/[facility] V28) Encounter for osteoporosis screening in asymptomatic postmenopausal patient COMPREHENSIVE METABOLIC PANEL Routine 01/15/2025 11:37 AM EDT Invasive lobular carcinoma of breast, stage 2, right (CMS/HCC V24, CMS/[facility] V28) Intractable episodic headache, unspecified headache type MG MAMMO DIGITAL DIAGNOSTIC W DAVID BILAT Routine 12/11/2024 11:07 AM EST Encounter for screening mammogram for malignant neoplasm of breast from Last 3 Months or Most Recently Relevant to Health Maintenance Results * BD Bone Density DXA Axial Skeleton (06/11/2025 1:48 PM EDT) Anatomical Region Laterality Modality Wrist, Hip, L-spine Bone Densito metry 06/14/2025 8:16 AM EDT Impressions 06/14/2025 8:18 AM EDT 1. Osteopenia. There has been an increase of 2.7% in bone mineral density in the lumbar spine since the prior examination of 03/18/2023. There has been a decrease of (4% in bone mineral density in the right femur and a decrease of 9.4% in bone mineral density in the left femur. 2. FRAX analysis yields a 10-year probability of major osteoporotic fracture of 7.5% and a 10-year probability of hip fracture of 0.7%. Code 81027 -------- FINAL REPORT -------- Dictated By: Steve Saldivar Dictated Date: 06/14/2025 08:16 ET Assigned Physician: Steve Saldivar Reviewed and Electronically Signed By: Steve Saldivar Signed Date: 06/14/2025 08:18 ET Workstation ID: [id number] Transcribed By: Self Edit Transcribed Date: 06/14/2025 08:16 ET Narrative 06/14/2025 8:18 AM EDT HISTORY: The patient is a 65-year-old postmenopausal female with clinical concern for metabolic bone disease. FINDINGS: Dual energy x-ray absorptiometry of the lumbar spine and femurs is performed. The mean bone mineral density at L1-2 is 1.344 gm/cm2 which is 115% of that of young normals and 120% of that of age matched controls. This yields a T-score of 1.5 and a Z-score of 1.9 and there is therefore no evidence of osteoporosis or osteopenia here. The mean bone mineral density of the femurs bilaterally is 0.972 gm/cm2 which is 96% of that of young normals and 101% of that of age matched controls. This yields a T-score of -0.3 and a Z-score of 0.1 and there is therefore no evidence of osteoporosis or osteopenia here. However, the T-score of the right femoral neck is -1.6 and that of the left femoral neck is -1.3 which is diagnostic of osteopenia. Procedure Note Steve Saldivar MD - 06/14/2025 HISTORY: The patient is a 65-year-old postmenopausal female with clinicalconcern for metabolic bone disease. FINDINGS: Dual energy x-ray absorptiometry of the lumbar spine and femursis performed. The mean bone mineral density at L1-2 is 1.344 gm/cm2 whichis 115% of that of young normals and 120% of that of age matched controls.This yields a T-score of 1.5 and a Z-score of 1.9 and there is thereforeno evidence of osteoporosis or osteopenia here. The mean bone mineral density of the femurs bilaterally is 0.972 gm/zn4yrohd is 96% of that of young normals and 101% of that of age matchedcontrols. This yields a T-score of -0.3 and a Z-score of 0.1 and there istherefore no evidence of osteoporosis or osteopenia here. However, theT-score of the right femoral neck is -1.6 and that of the left femoralneck is -1.3 which is diagnostic of osteopenia. IMPRESSION: 1. Osteopenia. There has been an increase of 2.7% in bone mineral densityin the lumbar spine since the prior examination of 03/18/2023. There hasbeen a decrease of (4% in bone mineral density in the right femur and adecrease of 9.4% in bone mineral density in the left femur. 2. FRAX analysis yields a 10-year probability of major osteoporoticfracture of 7.5% and a 10-year probability of hip fracture of 0.7%. Code 73060 -------- FINAL REPORT -------- Dictated By: Steve Saldivar Dictated Date: 06/14/2025 08:16 ET Assigned Physician: Steve Saldivar Reviewed and Electronically Signed By: Steve Saldivar Signed Date: 06/14/2025 08:18 ET Workstation ID: [id number] Transcribed By: Self Edit Transcribed Date: 06/14/2025 08:16 ET Festus Avila MD IM DXA PROCEDURES Final Res ult * (ABNORMAL) Comprehensive metabolic panel (01/15/2025 11:37 AM EDT) Sodium 137 133 - 145 mmol/L LAB CHEMISTRY METHOD 01/15/2025 1:57 PM [facility] Potassium 4.6 3.5 - 5.5 mmol/L LAB CHEMISTRY METHOD 01/15/2025 1:57 PM [facility] Chloride 106 96 - 110 mmol/L LAB CHEMISTRY METHOD 01/15/2025 1:57 PM [facility] CO2 26 21 - 32 mmol/L LAB CHEMISTRY METHOD 01/15/2025 1:57 PM [facility] Anion Gap 5 3 - 11 LAB CHEMISTRY METHOD 01/15/2025 1:57 PM [facility] Glucose 99 70 - 100 mg/dL LAB CHEMISTRY METHOD 01/15/2025 1:57 PM [facility] BUN 30(H) 5 - 25 mg/dL LAB CHEMISTRY METHOD 01/15/2025 1:57 PM [facility] Creatinine 1.13(H) 0.50 - 1.10 mg/dL LAB CHEMISTRY METHOD 01/15/2025 1:57 PM [facility] eGFR 55(L) >=60 mL/min/1. 73m2 LAB CHEMISTRY METHOD 01/15/2025 1:57 PM [facility] Comment:Calculation based on the Chronic Kidney Disease Epidemiology Collaboration (CKD-EPI) equation refit without adjustment for race. BUN/Creatinine Ratio 26.5 LAB CHEMISTRY METHOD 01/15/2025 1:57 PM [facility] Calcium 9.6 8.5 - 10.5 mg/dL LAB CHEMISTRY METHOD 01/15/2025 1:57 PM [facility] AST (SGOT) 12 10 - 42 unit/L LAB CHEMISTRY METHOD 01/15/2025 1:57 PM [facility] ALT (SGPT) 21 10 - 60 unit/L LAB CHEMISTRY METHOD 01/15/2025 1:57 PM [facility] Alkaline Phosphatase 85 42 - 121 unit/L LAB CHEMISTRY METHOD 01/15/2025 1:57 PM [facility] Total Protein 7.4 6.0 - 8.0 g/dL LAB CHEMISTRY METHOD 01/15/2025 1:57 PM [facility] Albumin 4.0 3.2 - 5.0 g/dL LAB CHEMISTRY METHOD 01/15/2025 1:57 PM [facility] Total Bilirubin 0.5 0.0 - 1.4 mg/dL LAB CHEMISTRY METHOD 01/15/2025 1:57 PM [facility] Blood Venous blood specimen / Unknown Venipuncture / Unknown 01/15/2025 11:37 AM EDT 01/15/2025 1:35 PM EDT Festus Avila MD LAB BLOOD ORDERABLES Final R esult [facility] [address] [place] [address], * MG Mammo Digital Diagnostic w David [...] year. Mammo Location: [facility], [address], [place], [address], . -------- FINAL REPORT -------- Dictated By: Arti Barrios Dictated Date: 12/11/2024 11:02 ET Assigned Physician: Arti Barrios Reviewed and Electronically Signed By: Arti Barrios Signed Date: 12/11/2024 11:06 ET Workstation ID: [id number] Transcribed By: Self Edit Transcribed Date: 12/11/2024 [...] year. Mammo Location: [facility], [address] [place] [address], [address], . -------- FINAL REPORT -------- Dictated By: Arti Barrios Dictated Date: 12/11/2024 11:02 ET Assigned Physician: Arti Barrios Reviewed and Electronically Signed By: Arti Barrios Signed Date: 12/11/2024 11:06 ET Workstation ID: [id number] Transcribed By: Self Edit Transcribed Date: 12/11/2024 11:02 ET us Tatyana Guzman MD IMG BI PROCEDURES Final Resul t from Last 3 Months or Most Recently Relevant to Health Maintenance Insurance MEDICAID - [place] [employer] MEDICARE Care Teams Operators Teacher Relationship Specialty Start Date End Date Tatyana Guzman MD [address] [place], [place] [phone] PCP - General Internal Medicine 06/07/25
--- OUTSIDE RECORDS SUMMARY | 2025-08-05 09:31 | XMS_ITS | Clinical Summary ---
Author Organization [facility] Address [address] [place] [address] Care Team Providers Care Nutrition Associate Name Role Phone Arti King [facility] Primary Care Provider [phone] Source Comments PLEASE NOTE, if this patient is a minor, it may be UNLAWFUL to discuss sensitive information that is contained in these records (such as FAMILY PLANNING, MENTAL HEALTH or SUBSTANCE ABUSE) with the minor patient's parent or other person without the patient's specific authorization.[facility] Allergies Active Allergy Reactions Criticality Noted Date Comments Albuterol 03/14/2016 Per Timmy notes Gluten Flour 2016 Latex 2016 Lisinopril 03/14/2016 Per Timmy notes Medications ketotifen (ZADITOR) 0.025 % (0.035 %) ophthalmic solutionIndications :Allergic conjunctivitis, bilateral Place 1 Drop into both eyes 2 (two) times daily. 10 mL 0 6 Active lancetsIndications: Type 2 diabetes mellitus without complication Check BS TID before meals E11.9 100 Each 2 6 Active blood sugar diagnostic stripsIndications:T ype 2 diabetes mellitus without complication Check BS TID before meals E11.9 100 [...] pain 03/19/2016 Overview (03/19/2016): Xray 03/14/16 at [facility] is neg for fracture. Leiomyoma of uterus 03/14/2016 Overview (03/14/2016): Per Timmy notes. Entrapment neuropathy of L wrist 03/14/2016 Overview (03/14/2016): L volar wrist hypersensitviity to touch- did EMG at [facility]. Obstructive sleep apnea 03/14/2016 Overview (03/14/2016): Polysomnogram at [facility] 08/10/13, has CPAP Papanicolaou smear 03/14/2016 Overview (03/14/2016): Pap smear 07/01/12 at [facility]., Negative for squamous intraepithelial lesion and malignancy, neg HPV H/O mammogram 03/14/2016 Overview (03/14/2016): Mammogram 09/17/14 at [facility] is BIRADS 1 H/O colonoscopy 03/14/2016 Overview (03/14/2016): Colonoscopy at [facility] 05/16/09 and normal. CKD (chronic kidney disease) stage 3, GFR 30-59 ml/min 02/17/2016 Overview (04/25/2016): Previously managed by Dr Ramos at [facility]. Thought to be d/t hypoperfusion given obesity and JONAH. 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 Celiac disease 2016 Overview (04/25/2016): Seen on endoscopy; duodenum biopsy shows intraepithelial lymphocytes ([place] Stage I) NAFLD (nonalcoholic fatty liver disease) 016 Overview (2016): Had CT of abd and pelvix 09/28/14 d/t elevated LFT's. Findings of hepatic steatosis, hepatomegaly. Seen at [facility], Dr Galeano. LFT's possibly d/t infectious hepatitis type of illness. Fibroid (bleeding) (uterine) 2016 Overview (03/28/2016): Pelvic U/S 02/19/16 at [facility] shows 5.3 cm diameter fundal fibroid. Managed by Jada Sommers CNM Left ankle pain 2016 H/O kidney injury 2016 Overview (2016): H/o CHARITY, seen by Dr Ramos 11/26/14. Unknown etiology, possibly d/t hypoperfusion. Immunizations Immunization Administration Dates Next Due INFLUENZA, SEASONAL, INJECTABLE 06/27/2017,08/11 PNEUMOCOCCAL POLYSACCHARIDE PPV23 (Pneumovax 23) 06/04/2012 TDAP 03/17/2009 Td (adult),2 Lf tetanus toxo id (TDVAX), preservative free 01/02/1998 Social History Tobacco Use Types [...] Plan of Treatment Not on file Insurance [facility] [employer] Member Subscriber Plan / Payer (Ef fective 2016-Present) Name:Lara Sanz Relation to Subscriber:Self Name:Lara Sanz Payer ID:[id number] Group ID:[id number] Type:Medicaid Address: [facility] [address] [place] [address] Care Teams Nutrition Associate Relationship Specialty Start Date End Date Arti King FNP [address] [place] [id number] PCP - General Family Medicine, [employer] 12/26/15
[2025-08-05 10:36] LABS: MANUAL DIFF FLAG NO
[2025-08-05 10:44] LABS: Hematocrit 37.0 % (37.0-47.0); Hemoglobin 12.3 g/dl (12.0-16.0); Imm Gran Abs Auto 0.01 X10*3/uL (0.00-0.03); Imm Gran Pct Auto 0.2 % (0.0-0.4); Lymphocytes Absolute Auto 1.2 X10*3/uL (1.2-4.9); Mean Corpuscular HGB Conc 33.2 g/dl (31.0-35.0); Mean Corpuscular Hemoglobin 28.3 pg (27.0-33.0); Mean Corpuscular Volume 85.3 fL (80.0-98.0); NRBC Abs Auto 0.000 X10*3/uL (0.0-0.012); NRBC Pct Auto 0.0 /100WBC (0.0-0.2); Platelet Count 256 X10*3/uL (160-400); Red Blood Count 4.34 X10*6/uL (4.20-5.50); White Blood Count 6.5 X10*3/uL (4.8-10.8)
[2025-08-05 10:55] LABS: Hemoglobin A1C 122.1774 umol/L
[2025-08-05 11:05] LABS: Microalbum/Creatinine Ratio Ur 8.6 ug/mg cr (<30)
[2025-08-05 11:26] LABS: Alanine Aminotransferase 32 U/L (0-31); Albumin Level 4.3 g/dL (3.5-5.0); Alkaline Phosphatase 83 U/L (39-117); Anion Gap 10 (12-20); Aspartate Amino Transferase 36 U/L (5-31); Blood Urea Nitrogen 19 mg/dL (9-16); Calcium 9.3 mg/dL (8.4-10.2); Carbon Dioxide 28 mmol/L (22-29); Chloride 107 mmol/L (96-108); Cholesterol 107 mg/dL (<200); Estimated Glomerular Filt Rate 47; HDL Cholesterol 31 mg/dL (>40); Potassium 4.7 mmol/L (3.3-5.1); Sodium 140 mmol/L (135-145); Total Protein 6.8 g/dL (6.5-8.0); Triglycerides 81 mg/dL (<150)
== END 2025-08-05 08:55 | disposition home or self-care (01) ==
LOC: HO.HMGCLDS 08:54
PROVIDERS: PCP Internal Medicine; Visit Provider Internal Medicine
DX: I10 Essential (primary) hypertension (principal); E11.9 Type 2 diabetes mellitus without complications; E78.5 Hyperlipidemia, unspecified; E66.01 Morbid (severe) obesity due to excess calories
CPT/HCPCS: 36415; 80053; 80061; 82043; 82570; 83036; 84443; 85025

== ENCOUNTER 2025-08-10 10:57 | Outpatient (AMB) | payer MEDICARE, MEDICAID, SELFPAY ==
[2025-08-10 11:08] VITALS: BP 110/66; PULSE 74; RESP 18; TEMP 36.7; O2SAT 97; BMI 38.8
--- NOTE | 2025-08-10 11:08 | A.OFFPC_ITS ---
Vital Signs 08/10/25 11:08 Height 5 ft 2 in Weight 212 lb BMI 38.8 BP 110/66 Blood Pressure Location Lt brachial Position Sitting Respiration 18 Pulse 74 Pulse Source Pulse Oximeter Temp 98.1 F Temp Source Oral Pulse Oximetry (%) 97 Oxygen Delivery Method Room Air Intake Visit Reasons: PE - see comments Intake Note: Pt is here today for PE. Allergies albuteral Adverse Reaction (Uncoded 08/10/25 11:09) low oxygen gluten Adverse Reaction (Uncoded 08/10/25 11:09) upset stomach latex Adverse Reaction (Uncoded 08/10/25 11:09) rash Medication List - Last Reconciled 08/10/25 by Tatyana Guzman MD atorvastatin (Lipitor) 20 mg PO DAILY blood sugar diagnostic As directed blood sugar diagnostic ([employer] Verio test strips) 1 TID blood-glucose sensor ([employer]Style Tim 3 Sensor device) As directed exemestane 25 mg PO DAILY Farxiga (dapagliflozin propanediol) 10 mg PO DAILY NS gabapentin 400 mg PO BID lancets ([employer] Delica Plus Lancet) As directed levothyroxine 88 mcg PO DAILY losartan 50 mg PO DAILY magnesium glycinate 200 mg orally at bedtime daily; 30 days melatonin 3 mg PO BEDTIME PRN 30 days meloxicam 7.5 mg PO DAILY metformin 1,000 mg PO BID Ozempic (semaglutide) 2 mg (0.75 mL) subcut QWEEK NS Tobacco use date assessed: 08/10/25 Dental Screening Dental Screen Date: 01/04/25 HPI PE - see comments HPI Details Pt presents for PE. PFSH Medical History (Updated 08/10/25 @ 12:06 by Tatyana Guzman MD) Colon cancer screening Breast cancer, right breast CKD stage 3 due to type 2 diabetes mellitus Obesity, Class III, BMI 40-49.9 (morbid obesity) DM type 2 (diabetes mellitus, type 2) Hyperlipidemia HTN (hypertension) Sleep apnea JONAH (obstructive sleep apnea) Surgical History Hx of tubal ligation H/O foot surgery Family History Father CAD (coronary artery disease), Onset Age: 70 Substance use disorder Mother COPD (chronic obstructive pulmonary disease) Social History Household Members Other:: , 3 children, on disability Housing: House Patient Tobacco Use Status: Never used Tobacco e-Cigarette/Vaping Use: Never Used service: No Current occupational status: unemployed Cognitive needs: No Hearing needs: No Vision needs: Yes Questionnaire PHQ-9 Over the last 2 weeks, how often have you been bothered by any of the following problems? 1. Little interest or pleasure in doing things: not at all 2. Feeling down, depressed, or hopeless: several days 3. Trouble falling or staying asleep, or sleeping too much: several days 4. Feeling tired or having little energy: several days 5. Poor appetite or overeating: several days 6. Feeling bad about yourself - or that you are a failure or have let yourself or your family down: not at all 7. Trouble concentrating on things, such as reading the newspaper or watching television: not at all 8. Moving or speaking so slowly that other people could have noticed. Or the opposite - being so fidgety or restless that you have been moving around a lot more than usual: not at all 9. Thoughts that you would be better off or of hurting yourself in some way: not at all Total score: 4 Depression Screening Interpretation: Negative Depression Screening Done: Yes Source: Developed by Drs. Kory Matson, Christel Gill, Jose Elizabeth and colleagues, with an educational layne from [employer]. Thrive Questionnaire Date Thrive assessed: 01/01/25 I am a: Patient What is your living situation today?: I have a steady place to live Within the past 12 months, did the food you bought not last and you didn't have the money to get more?: Sometimes True Within the past 12 months, did you worry whether your food would run out before you got money to buy more?: Sometimes True Do you have trouble paying for medicines?: No Do you have trouble getting transportation to medical appointments?: No Do you have trouble paying your heating and electricity bill?: I choose not to answer this question Do you have trouble taking care of your child, family member or friend?: No Do you have trouble with day-to-day activities such as bathing, preparing meals, shopping, managing finances, etc.?: No Are you currently unemployed and looking for a job?: No Are you interested in more education?: No Please select the resources that you would like help with: None Currently or been in a relationship where the following occur: No concerns reported THRIVE Score: 2 CATHY-7 AMB Questionnaire CATHY-7 Date CATHY - 7 assessed: 01/04/25 Feeling nervous, anxious, or on edge: 0 = Not at all Not being able to stop or control worryin = Not at all Worrying too much about different things: 0 = Not at all Trouble relaxin = Not at all Being so restless that it is hard to sit still: 0 = Not at all Becoming easily annoyed or irritable: 0 = Not at all Feeling afraid as if something awful might happen: 0 = Not at all Total CAHTY-7 score (0-4 normal; 5-9 mild; 10-14 moderate; 15-21 severe): 0 Source: Developed by Drs. Kory Matson, Christel Gill, Jose Elizabeth and colleagues, with an educational layne from [employer]. Review of Systems Const All systems reviewed & are unremarkable except as noted in HPI and below Eyes Reports no additional complaints ENT Reports no additional complaints Card Reports no additional complaints Resp Reports no additional complaints GI Reports no additional complaints Reports no additional complaints Physical exam (Primary Care) Vital Signs: Last Vital Signs Temp 98.1 F 08/10/25 11:08 Pulse 74 08/10/25 11:08 Resp 18 08/10/25 11:08 BP 110/66 08/10/25 11:08 Pulse Ox 97 08/10/25 11:08 Oxygen Delivery Method Room Air 08/10/25 11:08 BMI result Body Mass Index 38.8 Tobacco/Smoking Status: Tobacco use Status Tobacco use date assessed 08/10/25 08/10/25 11:26 Patient Tobacco Use Status Never used Tobacco 08/10/25 11:09 e-Cigarette/Vaping Use Never Used 08/10/25 11:09 PHQ-9: PHQ-9 Score PHQ-9: Total score 4 08/10/25 11:26 Depression Screening Interpretation: Negative Thrive Assessment: Date of Thrive Assessment Date Thrive assessed 01/01/25 08/10/25 11:09 Currently or been in a relationship where the following occur: No concerns reported Const General: no acute distress HENMT Head: Yes normal to inspection General nose exam: Normal external nose present Face and sinus: Yes normal facial exam Eyes General: appearance normal, both eyes and all related structures Neck Neck: Yes no lymphadenopathy and Yes supple Resp Effort & Inspection: normal respiratory effort Auscultation: clear to auscultation bilaterally Cardio Rhythm: regular rhythm Heart sounds: S1 normal heart sound present and S2 normal heart sound present GI Inspection: Yes normal to inspection Palpation (GI): Soft to palpation Percussion: Yes normal to percussion Auscultation: normal bowel sounds Extrem Other: Diabetic foot exam skin is intact monofilament and vibration sensation intact bilaterally Coding Level of Care Code Est Pt Prev Care 40-64y(33057) Diagnoses HTN (hypertension) I10 Hyperlipidemia E78.5 DM type 2 (diabetes mellitus, type 2) E11.9 Diabetes mellitus care home insulin use: without care home use Obesity, Class III, BMI 40-49.9 (morbid obesity) E66.01 Breast cancer, right breast C50.911 Annual physical exam Z00.00 Assessment & Plan Assessment & Plan (1) HTN (hypertension): Code(s): I10 - Essential (primary) hypertension Category: Medical Plan: cont losartan (2) Hyperlipidemia: Code(s): E78.5 - Hyperlipidemia, unspecified Category: Medical Plan: cont statin (3) DM type 2 (diabetes mellitus, type 2): Code(s): E11.9 - Type 2 diabetes mellitus without complications Category: Medical Qualifiers: Diabetes mellitus care home insulin use: without ferry terminal supervisor use Plan: A1C is 5.6, ADA diet, increase exercise and weight loss discussed with the patient continue current medications follow-up in 6 months with a fasting labs before (4) Obesity, Class III, BMI 40-49.9 (morbid obesity): Code(s): E66.01 - Morbid (severe) obesity due to excess calories Category: Medical Plan: Decreasing caloric intake increasing physical activity discussed with the patient (5) Breast cancer, right breast: Comment: 08/25 lumpectomy, RTx, on chemo Dr. Avila Code(s): C50.911 - Malignant neoplasm of unspecified site of right female breast Category: Medical Plan: Continue exemestane and follow-up with Oncology (6) Annual physical exam: Code(s): Z00.00 - Encounter for general adult medical examination without abnormal findings Category: Medical Plan: Well-balanced diet regular physical activity weight loss discussed with the patient return in 6 months with a fasting labs before. Patient will have Pap smear during her next appointment Orders: Orders Complete Blood Count Auto Diff 6 Months E11.9 - Type 2 diabetes mellitus without complications, E66.01 - Morbid (severe) obesity due to excess calories, E78.5 - Hyperlipidemia, unspecified, I10 - Essential (primary) hypertension Hemoglobin A1c 6 Months E11.9 - Type 2 diabetes mellitus without complications, E66.01 - Morbid (severe) obesity due to excess calories, E78.5 - Hyperlipidemia, unspecified, I10 - Essential (primary) hypertension TSH reflex Free T4 6 Months E11.9 - Type 2 diabetes mellitus without complications, E66.01 - Morbid (severe) obesity due to excess calories, E78.5 - Hyperlipidemia, unspecified, I10 - Essential (primary) hypertension Microalbumin, Random (w Creat) 6 Months E11.9 - Type 2 diabetes mellitus without complications, E66.01 - Morbid (severe) obesity due to excess calories, E78.5 - Hyperlipidemia, unspecified, I10 - Essential (primary) hypertension Comprehensive [place]. Panel Fast 6 Months E11.9 - Type 2 diabetes mellitus without complications, E66.01 - Morbid (severe) obesity due to excess calories, E78.5 - Hyperlipidemia, unspecified, I10 - Essential (primary) hypertension Lipid Panel 6 Months E11.9 - Type 2 diabetes mellitus without complications, E66.01 - Morbid (severe) obesity due to excess calories, E78.5 - Hyperlipidemia, unspecified, I10 - Essential (primary) hypertension
== END 2025-08-10 12:14 | disposition home or self-care (01) ==
LOC: HO.HMCC 10:58
PROVIDERS: PCP Internal Medicine; Visit Provider Internal Medicine
DX: Z00.00 Encounter for general adult medical examination without abnormal findings (principal); E11.69 Type 2 diabetes mellitus with other specified complication; E66.01 Morbid (severe) obesity due to excess calories; C50.911 Malignant neoplasm of unspecified site of right female breast; Z68.38 Body mass index [BMI] 38.0-38.9, adult; I10 Essential (primary) hypertension; E78.5 Hyperlipidemia, unspecified

== ENCOUNTER → 2025-08-10 10:57 | Outpatient (BNVA) | payer MEDICARE, MEDICAID, SELFPAY | PROVIDERS: PCP Internal Medicine; Visit Provider Internal Medicine | DX: Z00.00 Encounter for general adult medical examination without abnormal findings (principal); I10 Essential (primary) hypertension; E78.5 Hyperlipidemia, unspecified; E11.9 Type 2 diabetes mellitus without complications; E66.01 Morbid (severe) obesity due to excess calories; C50.911 Malignant neoplasm of unspecified site of right female breast; Z68.38 Body mass index [BMI] 38.0-38.9, adult | CPT/HCPCS: 96127; 99396 ==